=== PATIENT | male | born 1990 | race Two or more races ===

== ENCOUNTER 2025-01-28 11:02 | Emergency (ER) | payer MEDICARE, MEDICAID, SELFPAY ==
[2025-01-28 11:05] VITALS: BMI 37.4
[2025-01-28 11:13] VITALS: BP 172/100; PULSE 80; RESP 16; TEMP 37.2; O2SAT 99
--- NOTE | 2025-01-28 11:30 | XR_ITS ---
Examination: AP lateral soft tissue neck 2 views TECHNIQUE: AP lateral soft tissue neck 2 views Examination time: December 28, 2024 1146 hours INDICATIONS: Throat swelling and pain beginning one month ago. FINDINGS: Normal epiglottis Prevertebral soft tissue measures 19 mm at the C5 level No opaque foreign body IMPRESSION: Mild prevertebral soft tissue prominence, consider CT soft tissue neck post intravenous contrast follow-up
--- NOTE | 2025-01-28 11:36 | PD.EDURI ---
Upper Respiratory Inf. RME/HPI General Chief Complaint: Flu Like Symptoms Stated Complaint: THROAT PAIN, COUGH, N/V, FEVER, RED EYES X1 WEEK Time Seen by Provider: 01/28/25 11:34 Source: patient Arrival date/time: 01/28/25 11:02 34-year-old male with a history of kidney failure on peritoneal dialysis, presents to the emergency room with a chief complaint of throat pain, cough, nausea, vomiting, fever x 1 week Mode of arrival: ambulatory Limitations: no limitations Related Data Allergies Allergy/AdvReac Type Severity Reaction Status Date / Time No Known Allergies Allergy Verified 01/28/25 11:04 Review of Systems Review of Systems Systems Reviewed: All systems reviewed, normal except as documented Constitutional Constitutional: Reports system reviewed and no additional complaints, except as documented, Denies fatigue, Reports fever(s), Denies headache(s) and Denies weakness Eyes Eyes: Reports system reviewed and no additional complaints, except as documented, Denies blurry vision and Denies change in vision ENT Ears, Nose, Mouth, and Throat: Reports system reviewed and no additional complaints, except as documented, Denies otalgia, Denies headache(s), Reports nasal congestion, Reports sore throat, Denies throat swelling and Denies vertigo Cardiovascular Cardiovascular: Reports system reviewed and no additional complaints, except as documented, Denies chest pain, Denies dyspnea and Denies dyspnea on exertion Respiratory Respiratory: Reports system reviewed and no additional complaints, except as documented, Denies chest congestion, Denies cough, Denies dyspnea, Denies dyspnea on exertion and Denies wheezing Gastrointestinal Gastrointestinal: Reports system reviewed and no additional complaints, except as documented, Denies abdominal pain, Denies cramping, Denies nausea and Denies vomiting Genitourinary Genitourinary: Reports system reviewed and no additional complaints, except as documented, Denies dysuria and Denies hematuria Musculoskeletal Musculoskeletal: Reports system reviewed and no additional complaints, except as documented and Denies back pain Integumentary/Breasts Skin/Breast: Reports system reviewed and no additional complaints, except as documented and Denies wounds Neurologic Neurologic: Reports system reviewed and no additional complaints, except as documented, Denies confusion, Denies headache(s), Denies lack of coordination, Denies vertigo and Denies weakness Psychiatric Psychiatric: Reports system reviewed and no additional complaints, except as documented, Denies anxiety, Denies confusion, Denies depression, Denies paranoia, Denies suicidal ideation and Denies tactile hallucinations Endocrine Endocrine: Reports system reviewed and no additional complaints, except as documented and Denies fatigue Hematologic/Lymphatic Hematologic/Lymphatic: Reports system reviewed and no additional complaints, except as documented and Denies lymphadenopathy Allergic/Immunologic Allergic/Immunologic: Reports system reviewed and no additional complaints, except as documented, Denies throat swelling, Denies urticaria and Denies wheezing ED Exam General Limitations: Present no limitations General appearance: Present alert and in no apparent distress Head Head exam: Present atraumatic Eye Eye exam: Present normal appearance, PERRL and EOMI Expanded Eye Exam Pupils: Bilateral: regular, round and reactive Sclera/Conjunctival: left: hemorrhage ENT ENT exam: Present normal exam, normal oropharynx and mucous membranes moist Expanded ENT Exam External ear exam: Present normal external inspection Mouth exam: Present normal external inspection Teeth exam: Present normal inspection Throat exam: Present tonsillar erythema; Absent tonsillar exudate, R peritonsillar mass, L peritonsillar mass or muffled voice Neck Neck exam: Present normal inspection, full ROM and trachea midline Chest Chest inspection: Present normal inspection and symmetric chest wall rise Respiratory Respiratory exam: Present normal lung sounds bilaterally Cardiovascular Cardiovascular exam: Present regular rate, normal rhythm and normal heart sounds Abdominal Exam Abdominal exam: Present soft and normal bowel sounds Extremities Exam Extremities exam: Present normal inspection and full ROM Back Exam Back exam: Present normal inspection and full ROM Neurological Exam Neurological exam: Present alert, oriented X3 and CN II-XII intact Psychiatric Psychiatric exam: Present normal affect and normal mood Skin Skin exam: Present warm, dry, intact and normal color Course Quality Measures none Orders Category Date Time Status Bedside COVID-19 Antigen Test NOW Care 01/28/25 11:31 Active Bedside Influenza A&B Antigen Test NOW Care 01/28/25 11:31 Active XR soft tissue neck Stat Exams 01/28/25 11:30 Ordered Strep A Rapid Stat Lab 01/28/25 11:30 Ordered Vital Signs Vital signs: Vital Signs Temperature 98.9 F 01/28/25 11:13 Pulse Rate 80 01/28/25 11:13 Respiratory Rate 16 01/28/25 11:13 Blood Pressure 172/100 H 01/28/25 11:13 Pulse Oximetry (%) 99 01/28/25 11:13 Oxygen Delivery Method Room Air 01/28/25 11:13 O2 saturation 99% within normal limits Upper Respiratory Infection MDM Narrative MDM Narrative:: 34-year-old male with a history of kidney failure on peritoneal dialysis, presents to the emergency room with a chief complaint of throat pain, cough, nausea, vomiting, fever x 1 week Patient data External records reviewed:: [facility] [place] previous records Clinical information provided by:: patient Social determinants that could affect healthcare access:: none Patient has the following chronic illnesses:: Acute kidney failure How is presenting disease/condition affected by chronic disease/condition?: exacerbated by Evaluation data The following diagnostics were reviewed and interpreted by me:: lab results and radiology exam(s) Lab and/or radiology exams considered but not ordered:: Labs and radiology exams considered and ordered Interpretation Summary: X-ray soft tissue neck- Medications / Prescriptions Medications or Prescriptions considered but not ordered:: No medication given Medication administrations:: No medication given Consultations Consultation(s) initiated? (list below): No Diagnosis Upper Respiratory Differential Diagnosis: upper respiratory infection, sinusitis, viral infection, bronchitis, influenza, pharyngitis and other (Foreign body in neck) Admission Indicated Admission indicated?: not indicated Admission Request Was there a request for admission?: No Disposition Plan Disposition Plan: Discharge Discharge Attestation Discharge Attestation: The patient and all family members were given an opportunity to ask questions and understood the discharge instructions. Discharge instructions specifically effects, indications for sooner follow up or return to the emergency department, and the expected course of current diagnosis. Patient condition: Stable Discharge Plan Prescriptions/Referrals Referrals: Semaj Matthews MD [Primary Care Provider] - In 1 week Patient/Caregiver Discharge Instructions Print Language: Prydeinig
[2025-01-28 12:17] LABS: Strep A Rapid Negative (Negative)
[2025-01-28 13:22] VITALS: BP 169/102; PULSE 74; RESP 18; TEMP 36.7; O2SAT 98
[2025-01-28 13:24] VITALS: BP 169/102; PULSE 74
[2025-01-28] MEDS: cloNIDine HCL 0.1 MG TABLET PO (13:24)
--- NOTE | 2025-01-28 14:31 | XR_ITS ---
Examination: CT soft tissue neck, with intravenous contrast. 2-D coronal reconstructions. 2-D sagittal reconstructions. Date and time of exam :January 28, 20252009 hrs. Left initial difficulty swallowing one month worse the last 24 hours. CTDI: vol (mGy):40.0 DLP: (mGycm):365 Technique: 1.25 mm axial sections of the neck of the obtained. Coronal and sagittal reconstructions have been obtained. Intravenous contrast administered 45 cc has not really 300. Low dose protocols were performed. One or more of the following dose reduction techniques were used; automated exposure control, adjustment of the mA and/or KV according to patient size, use of iterative reconstruction technique. Findings: Symmetrical nasopharynx oropharynx Nonspecific carotid triangle lymphadenopathy The larynx appears normal No thyroid nodules Normal epiglottis Significant left maxillary sinus disease No prevertebral soft tissue prominence Impression: No soft tissue neck abscess No pathologic lymphadenopathy Normal larynx Normal epiglottis Given the patient's presentation, consider standard fluoroscopically guided esophagram follow-up
--- NOTE | 2025-01-28 14:32 | PD.EDRME ---
Rapid Medical Screening Exam COUNT INCLUDES THE [facility] Arrival date/time: 01/28/25 11:02 34-year-old male with a history of kidney failure on peritoneal dialysis, presents to the emergency room with a chief complaint of throat pain, cough, nausea, vomiting, fever x 1 week I have greeted and performed a focused initial assessment of this patient. A comprehensive ED assessment and evaluation of the patient, analysis of all test results, and completion of the medical decision making process will be conducted by additional ED providers. Chief Complaint: Flu Like Symptoms Time Seen by Provider: 01/28/25 11:34 Vital signs: Vital Signs Temperature 98.9 F 01/28/25 11:13 Pulse Rate 80 01/28/25 11:13 Respiratory Rate 16 01/28/25 11:13 Blood Pressure 172/100 H 01/28/25 11:13 Pulse Oximetry (%) 99 01/28/25 11:13 Oxygen Delivery Method Room Air 01/28/25 11:13
[2025-01-28 15:02] LABS: Basophils # (Auto) 0.1 Thou/mm3 (0.0-0.2); Basophils % (Auto) 1 % (0-2.5); Eosinophils # (Auto) 0.2 Thou/mm3 (0.0-0.5); Eosinophils % (Auto) 3 % (0-10); Hematocrit 30.6 % (41.0-53.0); Immature Granulocytes % (Auto) 0 % (0-0); Immature Granulocytes Auto 0.03 Thou/mm3 (0.00-0.00); Lymphocytes # (Auto) 0.4 Thou/mm3 (1.0-4.8); Lymphocytes % (Auto) 5 % (10-50); Mean Corpuscular HGB Conc 35.9 g/dl (31.0-37.0); Mean Corpuscular Hemoglobin 28.2 pg (25.0-35.0); Mean Corpuscular Volume 79 fL (80-100); Monocytes # (Auto) 0.9 Thou/mm3 (0.0-0.8); Monocytes % (Auto) 12 % (0-12); Neutrophils # (Auto) 5.6 Thou/mm3 (1.8-7.7); Neutrophils % (Auto) 77 % (37-80); Nucleated Red Blood Cell % 0 /100 WBC (0); Platelet Count 147 Thou/mm3 (140-440); RDW Standard Deviation 37.6 fL (35.1-43.9); White Blood Count 7.3 Thou/mm3 (3.8-10.6)
[2025-01-28 15:33] LABS: Alanine Aminotransferase 21 U/L (10-49); Albumin, Serum 3.4 gm/dL (3.5-5.0); Albumin/Globulin Ratio 1.1 (1.2-2.2); Alkaline Phosphatase 165 U/L (46-116); Anion Gap 17 (7-16); Aspartate Amino Transferase < 10 U/L (0-34); BUN/Creatinine Ratio 5 Ratio (12-20); Bilirubin,Total < 0.2 mg/dL (0.3-1.2); Calcium (Corrected) 8.5 mg/dL (8.5-10.1); Chloride 88 mMol/L (98-107); Estimated Creatinine Clearance 4.8 mL/min (>60); Glucose 92 mg/dL (74-106); Osmolality,Calculated 286 (275-295); Potassium 4.4 mMol/L (3.4-5.1); Sodium 122 mMol/L (136-145); Total Protein 6.4 gm/dL (5.7-8.2); eGFR 2 See Note
[2025-01-28 16:46] LABS: Blood Urea Nitrogen 125 mg/dL (9-23); Creatinine (Component) 25.6 mg/dL (0.6-1.3)
--- NOTE | 2025-01-28 18:41 | PD.EDADULT ---
ED General RME/HPI General Chief complaint: Flu Like Symptoms Stated complaint: THROAT PAIN, COUGH, N/V, FEVER, RED EYES X1 WEEK Time Seen by Provider: 01/28/25 11:34 Arrival date/time: 01/28/25 11:02 CC: Lump in throat , difficulty speaking difficulty swallowing HPI ongoing for 1 month but worse in the last 24 hours. states the patient has not anything to eat today secondary difficulty swallowing but he is managing his own saliva. Patient currently denies shortness of breath or difficulty breathing. Has spoken to his PCP about it who is considering outpatient referral for a specialist . RME / HPI RME / HPI narrative: 01/28/25 11:02 34-year-old male with a history of kidney failure on peritoneal dialysis, presents to the emergency room with a chief complaint of throat pain, cough, nausea, vomiting, fever x 1 week I have greeted and performed a focused initial assessment of this patient. A comprehensive ED assessment and evaluation of the patient, analysis of all test results, and completion of the medical decision making process will be conducted by additional ED providers. Related Data Previous Rx's ?Medication ?Instructions ?Recorded guaifenesin 200 mg/5 mL oral liquid 200 mg (5 mL) PO Q4H PRN cough 01/28/25 #118 mL prednisone 20 mg tablet See Taper PO BID 3 days #6 tabs 01/28/25 Allergies Allergy/AdvReac Type Severity Reaction Status Date / Time No Known Allergies Allergy Verified 01/28/25 11:04 Review of Systems Review of Systems Narrative Review of Systems: GEN: No fever, no chills, no weight loss EYES: No discharge, no visual changes, no pain HEENT: No ear pain, no congestion, + sore throat PULM: No shortness of breath, no cough, no congestion CV: No chest pain, no dyspnea on exertion, no palpitations GI: No nausea, no vomiting, no diarrhea, no pain, no constipation : No frequency, no urgency, no dysuria MUSC/SKEL: No joint pain, no back pain SKIN: No rash PSYCH: No hallucinations, no depression HEME/LYMPH: No easy bleeding or bruising tendencies NEURO: No weakness, no headache Past Medical History Past Medical History CARDIAC: Negative Cardiac Disorders RESPIRATORY: Negative Asthma ENDOCRINE: Negative Diabetes Mellitus Type 2 HEMATOLOGIC: Negative Sickle Cell Disease Social History SMOKING STATUS: Never smoker ED Exam Narrative Physical exam: [General: Obese not in any acute distress Head normocephalic HEENT: Within acceptable limits Neck is supple nontender, no stridor with auscultation Chest equal chest rise nontender to palpation Respiratory: Clear to auscultation no wheezes crackles or rubs dry nonproductive cough CV: Rate rhythm is regular no murmurs rubs or clicks Abdomen is distended secondary to body habitus soft nontender no masses positive bowel sounds all 4 quadrants Back: No CVA tenderness no spinous process tenderness from cervical spine thoracic and lumbar spine Skin: Intact no petechiae rash induration ulceration or crepitus Extremities: Moving all extremity against resistance cap refill less than 2 seconds neurosensory intact Neuro: Awake alert oriented x3 Glascow coma 15 no focal deficits] Course Quality Measures none Orders Category Date Time Status Bedside COVID-19 Antigen Test NOW Care 01/28/25 11:31 Active Bedside Influenza A&B Antigen Test NOW Care 01/28/25 11:[address] Screening NOW Care 01/28/25 14:[address] soft tissue neck w con Stat Exams 01/28/25 14:31 Completed XR soft tissue neck Stat Exams 01/28/25 11:30 Completed CBC Stat Lab 01/28/25 14:54 Completed CMP [Comprehensive Metabolic Panel] Stat Lab 01/28/25 14:54 Completed Strep A Rapid Stat Lab 01/28/25 11:48 Completed cloNIDine HCL [Catapres] Med 01/28/25 11:39 Discontinued 0.1 mg PO X1 ONE Vital Signs Vital signs: Vital Signs Temperature 98.9 F 01/28/25 11:13 Pulse Rate 80 01/28/25 11:13 Respiratory Rate 16 01/28/25 11:13 Blood Pressure 172/100 H 01/28/25 11:13 Pulse Oximetry (%) 99 01/28/25 11:13 Oxygen Delivery Method Room Air 01/28/25 11:13 [facility] Patient data External records reviewed:: [facility] previous records Clinical information provided by:: patient and spouse Social determinants that could affect healthcare access:: none Patient has the following chronic illnesses:: Obesity How is presenting disease/condition affected by chronic disease/condition?: uneffected by Evaluation data The following diagnostics were reviewed and interpreted by me:: lab results and radiology exam(s) Lab and/or radiology exams considered but not ordered:: CBC shows no leukocytosis H&H of 11 and 36 respectively no thrombocytopenia CMP shows a sodium 122 chloride of 88 CO2 of 17 gap of 17 BUN of 125 creatinine of 25.6 calcium of 8 no significant transaminitis or T. bili elevation. Strep is negative Soft tissue neck shows a prevertebral soft tissue prominence CT soft tissue neck with IV contrast shows no acute abscess or mass. Interpretation Summary: This time a discharge the patient home on steroids and cough medicine she is to follow-up with her PCP for referral to ENT I do not feel that this is any rigid mechanical issue rather an inflammatory problem. Patient is advised to take the medications of the worsening of symptoms to return the emergency room for further evaluation. Medications Medications considered but not ordered:: None Medication administrations:: Medication Administration History Discontinued Medications Clonidine (Clonidine Hcl 0.1 Mg Tablet) 0.1 mg PO X1 ONE Stop: 01/28/25 11:40 Last Admin: 01/28/25 13:24 Dose: 0.1 mg Documented By: ER None Consultations Consultation(s) initiated? (list below): No Diagnosis Differential Diagnosis ED Complaint MDM: Neck abscess neck mass viral syndrome Most likely diagnosis given after review of the tests above:: Viral syndrome difficulty swallowing Admission Indicated Admission indicated?: not indicated Explain why admission is indicated or not indicated:: Stable for discharge Admission Request Was there a request for admission?: No Disposition Plan Disposition Plan: Discharge Discharge Attestation Discharge Attestation: The patient and all family members were given an opportunity to ask questions and understood the discharge instructions. Discharge instructions specifically effects, indications for sooner follow up or return to the emergency department, and the expected course of current diagnosis. Patient condition: Stable Medical Decision Making Differential Diagnosis Differential Diagnosis: Neck abscess neck mass viral syndrome Lab Data 01/28/25 14:54 01/28/25 14:54 Labs: Lab Results 01/28/25 01/28/25 Range/Units 11:48 14:54 WBC 7.3 (3.8-10.6) Thou/mm3 RBC 3.90 L (4.50-5.90) Miln/mm3 Hgb 11.0 L (13.5-16.0) g/dL Hct 30.6 L (41.0-53.0) % MCV 79 L (80-100) fL MCH 28.2 (25.0-35.0) pg MCHC 35.9 (31.0-37.0) g/dl RDW Std Deviation 37.6 (35.1-43.9) fL Plt Count 147 (140-440) Thou/mm3 Neut % (Auto) 77 (37-80) % Lymph % (Auto) 5 L (10-50) % [place] % (Auto) 12 (0-12) % Eos % (Auto) 3 (0-10) % Baso % (Auto) 1 (0-2.5) % Neut # (Auto) 5.6 (1.8-7.7) Thou/mm3 Lymph # (Auto) 0.4 L (1.0-4.8) Thou/mm3 [place] # (Auto) 0.9 H (0.0-0.8) Thou/mm3 Eos # (Auto) 0.2 (0.0-0.5) Thou/mm3 Baso # (Auto) 0.1 (0.0-0.2) Thou/mm3 Immature Gran # (Auto) 0.03 H (0.00-0.00) Thou/mm3 Absolute Nucleated RBC 0.00 (0.00-0.00) Thou/mm3 Immature Gran % 0 (0-0) % Nucleated RBC % 0 (0) /100 WBC Sodium 122 L (136-145) mMol/L Potassium 4.4 (3.4-5.1) mMol/L Chloride 88 L (98-107) mMol/L Carbon Dioxide 17.0 L (20.0-31.0) mMol/L Anion Gap 17 H (7-16) BUN 125 H* (9-23) mg/dL Creatinine 25.6 H* (0.6-1.3) mg/dL Estim Creat Clear Calc 4.8 L (>60) mL/min eGFR 2 L* (60 - ) See Note BUN/Creatinine Ratio 5 L (12-20) Ratio Glucose 92 (74-106) mg/dL Calculated Osmolality 286 (275-295) Calcium 8.0 L (8.3-10.6) mg/dL Corrected Calcium 8.5 (8.5-10.1) mg/dL Total Bilirubin < 0.2 L (0.3-1.2) mg/dL AST < 10 (0-34) U/L ALT 21 (10-49) U/L Alkaline Phosphatase 165 H (46-116) U/L Total Protein 6.4 (5.7-8.2) gm/dL Albumin 3.4 L (3.5-5.0) gm/dL Globulin 3.0 (2.3-3.5) gm/dL Albumin/Globulin Ratio 1.1 L (1.2-2.2) Group A Strep Rapid Negative (Negative) Discharge Plan Plan Patient Disposition: HOME (Self Care) Patient condition on transfer: Stable Prescriptions/Referrals Prescriptions/Med Rec: New prednisone 20 mg tablet See Taper PO BID 3 Days Qty: 6 0RF Taper: Prednisone Taper 20 mg DAILY for 2 Days and 0 Hour 10 mg DAILY for 2 Days and 0 Hour 5 mg DAILY for 7 Days and 0 Hour guaifenesin 200 mg/5 mL liquid 200 mg PO Q4H PRN (Reason: cough) Qty: 118 0RF Referrals: Semaj Matthews MD [Primary Care Provider] - In 1 week Problem List Clinical Impression: Cough, Difficulty in swallowing Patient/Caregiver Discharge Instructions Education Materials: ED Cough Chronic Uncertain Cause Adult, ED Soft Diet Additional Instructions: Take the medications as prescribed if there is worsening of symptoms return the emergency room otherwise follow-up with your primary care provider for referral to ENT. Make sure you dialyzed tonight Print Language: Vincentian Stand Alone Forms: Cinthia Award Info., Patient Portal Info Letter, Work/School Release PA/PRESS SECRETARY Supervising Physician PA/PRESS SECRETARY Supervising Physician: Constantine Schumacher ENP
== END 2025-01-28 21:28 | disposition home or self-care (01) ==
PROVIDERS: Nurse Practitioner Family; Emergency Provider Emergency Medicine; PCP Family Medicine
DX: R13.10 Dysphagia, unspecified (principal); R05.9 Cough, unspecified
CPT/HCPCS: 36415; 70360; 70491; 80053; 85025; 87651; 99285; A4649; Q9967; A9270

== ENCOUNTER 2025-02-05 21:14 | Emergency (ER) | payer MEDICARE, MEDICAID, SELFPAY ==
[2025-02-05 21:15] VITALS: BMI 37.2
[2025-02-05 21:30] VITALS: BP 149/87; PULSE 94; RESP 19; TEMP 38; O2SAT 96
--- NOTE | 2025-02-05 21:32 | PD.EDSOB ---
ED SOB =RME/HPI General Chief Complaint: Shortness of Breath/Dyspnea Stated Complaint: SHORTNESS OF BREATH, DIFFULTY SWALLOWING Time Seen by Provider: 02/05/25 21:27 Arrival date/time: 02/05/25 21:14 RME / HPI RME / HPI Narrative: This section includes all my notes and documentations, including HPI, PE, and ED course. Michael Mir MD HPI: 34yo male presents to the ED with about a month history of worsening cough, productive cough, purulent sputum, and dyspnea. Waxing and waning but severely worse in the past few days. With subjective fever and chills. No other complaints. ROS: All negative except as documented in HPI. Physical Exam: General: Alert and oriented. Is actively coughing. Eyes: Conjunctivae and lids clear. ENT: No nasal congestion. Neck: Supple. Heart: RRR. Lungs: No respiratory distress. Moderately decreased air movement with bilateral rhonchi. Abdomen: Soft and nontender. Legs: No clubbing, cyanosis, edema. Skin: Warm and dry. Neuro: Alert and oriented X 3. I reviewed all diagnostic test results. My interpretation of the chest x-ray is infiltrates. COVID/influenza negative. Cocci serology pending. At this point, diagnoses include pneumonia. Treatment here included Tylenol with Codeine, Duoneb, Azithromycin, Benadryl, Fluconazole, Ibuprofen, and Prednisone. Significant improvement noted. Prescribed Zithromax and cefdinir and Diflucan and recommended close outpatient follow-up. Based on my best medical judgment, made decision no further evaluation or treatment indicated at this time. Patient understands and agrees to the discharge instructions customized and printed, see below. Discharge instructions from Dr. Mir: --After evaluation, you have pneumonia. There are many types of germs that can cause pneumonia. So you are being treated with 3 medications that can kill different germs. --No physical exertion for 3 days to help rest the lungs. ?No smoking or exposure to smoking or pets or dust or cold or humidity. --Zithromax and cefdinir and Diflucan (as prescribed) to kill the germs causing the pneumonia. --Prednisone to help decrease the swelling in the airways. --Albuterol 2 puffs (with the spacer) every 4-6 hours for 3 days to help keep the airways open. Then as needed for cough or shortness of breath. --See a private doctor on for recheck and further care. Ask to check the results for valley fever. Ask if you need to continue taking Diflucan. Ask for help until you are completely better. --Seek immediate medical care with worsening or with any concerns. Michael Mir MD Related Data Previous Rx's ?Medication ?Instructions ?Recorded guaifenesin 200 mg/5 mL oral liquid 200 mg (5 mL) PO Q4H PRN cough 01/28/25 #118 mL albuterol sulfate 90 mcg/actuation 2 puff inhalation Q6H PRN 02/05/25 aerosol inhaler shortness of breath or wheezing #8.5 grams azithromycin 500 mg tablet 500 mg PO QDAY 3 days #3 tabs 02/05/25 (Zithromax TRI-JULITA) cefdinir 300 mg capsule 300 mg PO BID #14 caps 02/05/25 fluconazole 200 mg tablet 400 mg (2 x 200 mg) PO QDAY #30 02/05/25 (Diflucan) tabs prednisone 50 mg tablet 50 mg PO BID 3 days #6 tabs 02/05/25 Allergies Allergy/AdvReac Type Severity Reaction Status Date / Time No Known Allergies Allergy Verified 01/28/25 11:04 Review of Systems Review of Systems Systems Reviewed: All systems reviewed, normal except as documented Past Medical History Past Medical History CARDIAC: Negative Cardiac Disorders RESPIRATORY: Negative Asthma ENDOCRINE: Negative Diabetes Mellitus Type 2 HEMATOLOGIC: Negative Sickle Cell Disease Social History SMOKING STATUS: Never smoker ED Exam Narrative Physical exam: As noted in HPI. Course Quality Measures none Orders Category Date Time Status Bedside COVID-19 Antigen Test NOW Care 02/05/25 21:37 Completed Bedside Influenza A&B Antigen Test NOW Care 02/05/25 21:37 Completed Referral Respiratory Therapy Stat Cons 02/05/25 22:46 Active XR chest 1V portable Stat Exams 02/05/25 21:36 Completed Cocci Serology IgM with reflex to IgG [Cocci Serology, Lab 02/05/25 23:24 Received Unk History] Stat ACETAMINOPHEN w/COD 300-30 [Tylenol w/Cod #3] Med 02/05/25 21:36 Discontinued 2 tab PO X1 ONE Albuterol/Ipratr Rt Ita [Duoneb Rt Ita] Med 02/05/25 21:35 Discontinued 3 ml INH X1 ONE Azithromycin Po [Zithromax PO] Med 02/05/25 22:31 Discontinued 500 mg PO X1 ONE DiphenhydrAMINE [Benadryl] Med 02/05/25 21:35 Discontinued 25 mg PO X1 ONE Fluconazole [Diflucan] Med 02/05/25 22:31 Discontinued 400 mg PO X1 ONE Fluconazole [Diflucan] Med 02/05/25 22:57 Discontinued 450 mg PO X1 ONE Fluconazole [Diflucan] Med 02/05/25 23:01 Discontinued 450 mg PO X1 ONE Ibuprofen Tab [Motrin Tab] Med 02/05/25 21:37 Discontinued 800 mg PO X1 ONE predniSONE Med 02/05/25 21:35 Discontinued 80 mg PO X1 ONE Vital Signs Vital signs: Vital Signs Temperature 100.4 F 02/05/25 21:30 Pulse Rate 94 02/05/25 21:30 Respiratory Rate 19 02/05/25 21:30 Blood Pressure 149/87 H 02/05/25 21:30 Pulse Oximetry (%) 96 02/05/25 21:30 Oxygen Delivery Method Room Air 02/05/25 21:30 Shortness of Breath / Dyspnea MDM Narrative MDM Narrative:: Scribe Attestation: 02/05/25 - Olga Lidia Vincent am scribing for and in the presence of Dr. Mir. Patient data External records reviewed:: [facility] previous records (Per chart review, patient was seen here on 01/28/25 for a cough.) Clinical information provided by:: patient Social determinants that could affect healthcare access:: none Patient has the following chronic illnesses:: none How is presenting disease/condition affected by chronic disease/condition?: no chronic disease Evaluation data The following diagnostics were reviewed and interpreted by me:: lab results, radiology exam(s) and EKG tracing(s) Lab and/or radiology exams considered but not ordered:: none Interpretation Summary: Pneumonia Medications / Prescriptions Medications or Prescriptions considered but not ordered:: none Medication administrations:: Medication Administration History Discontinued Medications Acetaminophen/Codeine Phosphate (Acetaminophen W/Cod 300-30 Tablet) 2 tab PO X1 ONE Stop: 02/05/25 21:37 Last Admin: 02/05/25 22:14 Dose: 2 tab Documented By: OA Albuterol/Ipratropium (Albuterol/Ipratropium (Duoneb) Rt Ita 3 Ml Nebu) 3 ml INH X1 ONE Stop: 02/05/25 21:36 Last Admin: 02/05/25 22:38 Dose: 3 ml Documented By: MARIA A Azithromycin (Azithromycin 250 Mg Tablet) 500 mg PO X1 ONE Stop: 02/05/25 22:32 Last Admin: 02/05/25 23:13 Dose: 500 mg Documented By: ROBEL Diphenhydramine HCl (Diphenhydramine 25 Mg Capsule) 25 mg PO X1 ONE Stop: 02/05/25 21:36 Last Admin: 02/05/25 22:14 Dose: 25 mg Documented By: OA Fluconazole (Fluconazole 100 Mg Tablet) 400 mg PO X1 ONE Stop: 02/05/25 22:32 Last Admin: 02/05/25 23:00 Dose: Not Given Documented By: OA Non-Admin Reason: Discontinued Fluconazole (Fluconazole 100 Mg Tablet) 450 mg PO X1 ONE Stop: 02/05/25 22:58 Last Admin: 02/05/25 23:02 Dose: Not Given Documented By: ROBEL Non-Admin Reason: Discontinued Fluconazole (Fluconazole 150 Mg Tablet) 450 mg PO X1 ONE Stop: 02/05/25 23:02 Last Admin: 02/05/25 23:13 Dose: 450 mg Documented By: ROBEL Ibuprofen (Ibuprofen Tab 400 Mg Tablet) 800 mg PO X1 ONE Stop: 02/05/25 21:38 Last Admin: 02/05/25 22:14 Dose: 800 mg Documented By: OA Prednisone (Prednisone 20 Mg Tablet) 80 mg PO X1 ONE Stop: 02/05/25 21:36 Last Admin: 02/05/25 22:15 Dose: 80 mg Documented By: ROBEL Tylenol with Codeine, Duoneb, Azithromycin, Benadryl, Fluconazole, Ibuprofen, Prednisone Consultations Consultation(s) initiated? (list below): No Diagnosis Shortness of Breath Differential Diagnosis: acute exacerbation of chronic obstructive airways disease, congestive heart failure, community acquired pneumonia, asthma with exacerbation, pulmonary embolism and other (Influenza, COVID, valley fever) Most likely diagnosis given after review of the tests above:: Pneumonia Admission Indicated Admission indicated?: not indicated Explain why admission is indicated or not indicated:: With significant improvement, there was no indication for admission. Admission Request Was there a request for admission?: No Disposition Plan Disposition Plan: Discharge Discharge Attestation Discharge Attestation: The patient and all family members were given an opportunity to ask questions and understood the discharge instructions. Discharge instructions specifically effects, indications for sooner follow up or return to the emergency department, and the expected course of current diagnosis. Patient condition: Stable Discharge Plan Plan Patient Disposition: HOME (Self Care) Prescriptions/Referrals Prescriptions/Med Rec: New prednisone 50 mg tablet 50 mg PO BID 3 Days Qty: 6 0RF albuterol sulfate 90 mcg/actuation HFA aerosol inhaler 2 puff inhalation Q6H PRN (Reason: shortness of breath or wheezing) Qty: 8.5 0RF cefdinir 300 mg capsule 300 mg PO BID Qty: 14 0RF azithromycin [Zithromax TRI-JULITA] 500 mg tablet 500 mg PO QDAY 3 Days Qty: 3 0RF fluconazole [Diflucan] 200 mg tablet 400 mg PO QDAY Qty: 30 1RF No Action guaifenesin 200 mg/5 mL liquid 200 mg PO Q4H PRN (Reason: cough) Qty: 118 0RF Referrals: No Primary/Family,Physician [Primary Care Provider] - In 1 week Problem List Clinical Impression: Pneumonia Patient/Caregiver Discharge Instructions Discharge Activity: activity as tolerated Education Materials: ED Pneumonia (Adult) Additional Instructions: Discharge instructions from Dr. Mir: --After evaluation, you have pneumonia. There are many types of germs that can cause pneumonia. So you are being treated with 3 medications that can kill different germs. --No physical exertion for 3 days to help rest the lungs. ?No smoking or exposure to smoking or pets or dust or cold or humidity. --Zithromax and cefdinir and Diflucan (as prescribed) to kill the germs causing the pneumonia. --Prednisone to help decrease the swelling in the airways. --Albuterol 2 puffs (with the spacer) every 4-6 hours for 3 days to help keep the airways open. Then as needed for cough or shortness of breath. --See a private doctor on for recheck and further care. Ask to check the results for valley fever. Ask if you need to continue taking Diflucan. Ask for help until you are completely better. --Seek immediate medical care with worsening or with any concerns. Instrucciones de elliot del Dr. Mir: --Despu?s de la evaluaci?n, usted presenta neumon?a. Hay muchos tipos de g?rmenes que pueden causar neumon?a. Por lo tanto, est? recibiendo tratamiento con 3 medicamentos que pueden eliminar diferentes g?rmenes. --No realice esfuerzo f?sico jimmy 3 d?as para ayudar a que los pulmones descansen. --No fume ni se exponga al humo del tabaco, a las mascotas, al polvo, al fr?o ni a la humedad. --Zithromax, cefdinir y Diflucan (seg?n lo prescrito) para eliminar los g?rmenes que causan la neumon?a. --Prednisona para ayudar a disminuir la inflamaci?n de las v?as respiratorias. --Albuterol: 2 inhalaciones (con espaciador) cada 4-6 horas jimmy 3 d?as para ayudar a mantener las v?as respiratorias abiertas. Despu?s, seg?n sea necesario para la tos o la dificultad para respirar. --Consulte con un m?dico particular el para anuel nueva revisi?n y cuidados adicionales. Solicite que le revisen los resultados de la fiebre shankar. Pregunte si necesita continuar tomando Diflucan. Solicite ayuda hasta que se recupere por completo. --Busque atenci?n m?dica inmediata si empeora o tiene alguna inquietud. Print Language: Pashto Stand Alone Forms: Cinthia Award Info., Patient Portal Info Letter
--- NOTE | 2025-02-05 21:36 | XR_ITS ---
Examination: PA chest single view Technique: Upright PA chest single view Exam date and time: February 05, 2025 1052 hrs. Indications: Shortness of breath this month with cough Findings: Dense consolidation versus pulmonary mass in the right Prominent right hilum Normal heart size Left lung clear Impression: 5.5 cm dense consolidation versus pulmonary mass in the right midlung with prominent right hilum Highest on the differential list is infectious processes including tuberculosis,, coccidioidomycosis, follow-up chest imaging is needed to document clearing
[2025-02-05] MEDS: DiphenhydrAMINE 25 MG CAPSULE PO (22:14)
[2025-02-05] MEDS: IBUPROFEN TAB 400 MG TABLET 800 MG PO (22:14)
[2025-02-05] MEDS: ACETAMINOPHEN w/COD 300-30 TABLET 2 TAB PO (22:14)
[2025-02-05] MEDS: predniSONE 20 MG TABLET 80 MG PO (22:15)
[2025-02-05] MEDS: ALBUTEROL/IPRATROPIUM (Duoneb) RT SOL 3 ML NEBU INH (22:38)
[2025-02-05 22:39] VITALS: PULSE 82; RESP 21; O2SAT 99
[2025-02-05] MEDS: FLUCONAZOLE 150 MG TABLET 450 MG PO (23:13)
[2025-02-05] MEDS: AZITHROMYCIN 250 MG TABLET 500 MG PO (23:13)
[2025-02-05 23:42] VITALS: BP 142/68; PULSE 70; RESP 20; TEMP 37; O2SAT 96
[2025-02-06 12:50] LABS: Cocci Serology, IgM Negative (Negative)
[2025-02-07 11:37] LABS: Cocci Serology, IgG Negative (Negative)
== END 2025-02-05 23:44 | disposition home or self-care (01) ==
PROVIDERS: Emergency Provider Emergency Medicine
DX: J18.9 Pneumonia, unspecified organism (principal)
CPT/HCPCS: 36415; 71045; 86331; 86635; 87400; 87811; 94640; 99283; A9270; J7512

== ENCOUNTER 2025-02-12 08:51 | Inpatient (IN) | payer MEDICARE, MEDICAID, SELFPAY ==
[2025-02-12] VITALS (10 sets, daily range): BP systolic 126–165; BP diastolic 71–85; PULSE 78–91; RESP 16–22; TEMP 36.5–37.2; O2SAT 92–97; BMI 38.0
--- NOTE | 2025-02-12 09:14 | XR_ITS ---
Examination: CT abdomen and pelvis without contrast. Coronal 3-D reconstructions. Sagittal 2-D reconstructions. Date and time of exam:February 12, 2025 1107 hours INDICATIONS: Left-sided flank pain and vomiting blood today CTDI: vol (mGy): 13.2 DLP: (mGycm): 6 Technique: Axial images of the abdomen have been obtained, 3 mm slice thickness Intravenous contrast material has not been administered. Low dose protocols were performed. One or more of the following dose reduction techniques were used; automated exposure control, adjustment of the mA and/or KV according to patient size, use of iterative reconstruction technique. Findings: Partial visualization 5 cm thick-walled cavitary lesion in the right perihilar region Calcified granuloma left lower lobe Mucosal fold thickening diffusely in the stomach, gastritis pattern Liver mildly irregular in contour Mild fluid subcapsular to the liver No definite gallstones Spleen not enlarged No pancreatic or adrenal mass Atrophic kidneys No bowel obstruction Mild ascites Tube in the pelvis consistent with peritoneal dialysis catheter Contracted urinary bladder No prostatomegaly IMPRESSION: Recommend CT scan chest without contrast to further assess 5 mm thick-walled cavitary lesion in the right lung Gastritis pattern Suspect primary hepatocellular disease Peritoneal dialysis catheter with free fluid in the abdomen No bowel obstruction
--- NOTE | 2025-02-12 09:15 | EDRME_ITS ---
Rapid Medical Screening Exam [facility] Arrival date/time: 02/12/25 08:51 34-year-old male with a history of hemodialysis chronic kidney disease presents to the emergency room with a chief complaint of bilateral flank pain and difficulty swallowing x 2 days. Patient was seen here 2 weeks ago for his difficulty swallowing. I have greeted and performed a focused initial assessment of this patient. A comprehensive ED assessment and evaluation of the patient, analysis of all test results, and completion of the medical decision making process will be conducted by additional ED providers. Chief Complaint: Back Pain/Injury Vital signs: Vital Signs Temperature 98.1 F 02/12/25 09:11 Pulse Rate 88 02/12/25 09:11 Respiratory Rate 20 02/12/25 09:11 Blood Pressure 133/72 H 02/12/25 09:11 Pulse Oximetry (%) 97 02/12/25 09:11 Oxygen Delivery Method Room Air 02/12/25 09:11 Vital signs reviewed by provider: Yes
[2025-02-12 10:07] LABS: Basophils % (Auto) 0 % (0-2.5); Eosinophils # (Auto) 0.1 Thou/mm3 (0.0-0.5); Eosinophils % (Auto) 1 % (0-10); Hemoglobin 10.4 g/dL (13.5-16.0); Immature Granulocytes % (Auto) 1 % (0-0); Immature Granulocytes Auto 0.27 Thou/mm3 (0.00-0.00); Lymphocytes # (Auto) 0.3 Thou/mm3 (1.0-4.8); Lymphocytes % (Auto) 2 % (10-50); Mean Corpuscular HGB Conc 37.1 g/dl (31.0-37.0); Mean Corpuscular Volume 75 fL (80-100); Monocytes # (Auto) 1.6 Thou/mm3 (0.0-0.8); Monocytes % (Auto) 8 % (0-12); Neutrophils # (Auto) 17.7 Thou/mm3 (1.8-7.7); Neutrophils % (Auto) 88 % (37-80); Nucleated Red Blood Cell % 0 /100 WBC (0); Platelet Count 201 Thou/mm3 (140-440); RDW Standard Deviation 35.8 fL (35.1-43.9); Red Blood Count 3.72 Miln/mm3 (4.50-5.90); White Blood Count 20.1 Thou/mm3 (3.8-10.6)
[2025-02-12 10:37] LABS: Alanine Aminotransferase 15 U/L (10-49); Albumin, Serum 3.2 gm/dL (3.5-5.0); Albumin/Globulin Ratio 1.2 (1.2-2.2); Alkaline Phosphatase 143 U/L (46-116); Anion Gap 15 (7-16); Aspartate Amino Transferase 11 U/L (0-34); BUN/Creatinine Ratio 6 Ratio (12-20); Bilirubin,Total 0.2 mg/dL (0.3-1.2); Calcium 7.1 mg/dL (8.3-10.6); Calcium (Corrected) 7.7 mg/dL (8.5-10.1); Chloride 86 mMol/L (98-107); Estimated Creatinine Clearance 5.1 mL/min (>60); Globulin 2.7 gm/dL (2.3-3.5); Glucose 97 mg/dL (74-106); Lipase 125 U/L (12-53); Osmolality,Calculated 285 (275-295); Potassium 3.9 mMol/L (3.4-5.1); Total Protein 5.9 gm/dL (5.7-8.2); eGFR 2 See Note
[2025-02-12 10:44] LABS: Carbon Dioxide 14.7 mMol/L (20.0-31.0); Sodium 116 mMol/L (136-145)
[2025-02-12 10:45] LABS: Blood Urea Nitrogen 154 mg/dL (9-23); Creatinine (Component) 24.6 mg/dL (0.6-1.3)
[2025-02-12 11:38] LABS: Collection Type, Urine Clean Catch
--- NOTE | 2025-02-12 11:57 | PD.EDADULT ---
ED General RME/HPI General Chief complaint: Back Pain/Injury Stated complaint: THROWING UP BLOOD, LOW BACK PAIN Time Seen by Provider: 02/12/25 11:45 Arrival date/time: 02/12/25 08:51 CC: Low back pain HPI ongoing for the past 2 days. Patient is a peritoneal dialysis patient seen by Dr. Zamora. He is awake alert oriented in moderate discomfort. Denies chest pain shortness of breath or difficulty breathing. RME / HPI RME / HPI narrative: 02/12/25 08:51 34-year-old male with a history of hemodialysis chronic kidney disease presents to the emergency room with a chief complaint of bilateral flank pain and difficulty swallowing x 2 days. Patient was seen here 2 weeks ago for his difficulty swallowing. I have greeted and performed a focused initial assessment of this patient. A comprehensive ED assessment and evaluation of the patient, analysis of all test results, and completion of the medical decision making process will be conducted by additional ED providers. Related Data Previous Rx's ?Medication ?Instructions ?Recorded guaifenesin 200 mg/5 mL oral liquid 200 mg (5 mL) PO Q4H PRN cough 01/28/25 #118 mL albuterol sulfate 90 mcg/actuation 2 puff inhalation Q6H PRN 02/05/25 aerosol inhaler shortness of breath or wheezing #8.5 grams cefdinir 300 mg capsule 300 mg PO BID #14 caps 02/05/25 fluconazole 200 mg tablet 400 mg (2 x 200 mg) PO QDAY #30 02/05/25 (Diflucan) tabs Allergies Allergy/AdvReac Type Severity Reaction Status Date / Time No Known Allergies Allergy Verified 01/28/25 11:04 Review of Systems Review of Systems Narrative Review of Systems: GEN: No fever, no chills, no weight loss EYES: No discharge, no visual changes, no pain HEENT: No ear pain, no congestion, no sore throat PULM: No shortness of breath, no cough, no congestion CV: No chest pain, no dyspnea on exertion, no palpitations GI: No nausea, no vomiting, no diarrhea, no pain, no constipation : No frequency, no urgency, no dysuria MUSC/SKEL: No joint pain, + back pain SKIN: No rash PSYCH: No hallucinations, no depression HEME/LYMPH: No easy bleeding or bruising tendencies NEURO: No weakness, no headache Past Medical History Past Medical History CARDIAC: Negative Cardiac Disorders or Congestive Heart Failure RESPIRATORY: Negative Chronic Obstructive Pulmonary Disease (COPD) or Asthma ENDOCRINE: Negative Diabetes Mellitus Type 1 or Diabetes Mellitus Type 2 HEMATOLOGIC: Negative Sickle Cell Disease Social History SMOKING STATUS: Never smoker ED Exam Narrative Physical exam: [General: Obese, moderate discomfort not in any acute distress Head normocephalic HEENT: Within acceptable limits Neck is supple nontender Chest equal chest rise nontender to palpation Respiratory: Clear to auscultation no wheezes crackles or rubs CV: Rate rhythm is regular no murmurs rubs or clicks Abdomen is distended secondary to body habitus soft nontender no masses positive bowel sounds all 4 quadrants Back: Low lumbar tenderness over the spinous processes. No paraspinal tenderness no thoracic tenderness. No sacral tenderness with palpation. Skin is normal, no erythema edema. Tenderness is evident with very light palpation. Skin: Intact no petechiae rash induration ulceration or crepitus Extremities: Moving all extremity against resistance cap refill less than 2 seconds neurosensory intact Neuro: Awake alert oriented x3 Glascow coma 15 no focal deficits] Course Course Course Narrative: This patient has hyponatremia with a cavitating lesion on CT. 20,000 white count with no fever and concern, patient's case discussed with Dr. Galaviz who agrees to accept the patient for admission under Dr. Vazquez attending Quality Measures none Orders Category Date Time Status Bedside COVID-19 Antigen Test NOW Care 02/12/25 12:58 Active EKG (ED ONLY) *Do not use* NOW Care 02/12/25 11:[address] abdomen pelvis wo con Stat Exams 02/12/25 09:[address] chest wo con Stat Exams 02/12/25 12:31 Taken EKG (ED Only) Stat Exams 02/12/25 11:59 Draft B-Type Natriuretic Peptide Stat Lab 02/12/25 12:11 Completed Blood Culture (Lab) Stat Lab 02/12/25 12:11 Received CBC Stat Lab 02/12/25 09:55 Completed CMP [Comprehensive Metabolic Panel] Stat Lab 02/12/25 09:55 Completed Drug Screen,Urine Stat Lab 02/12/25 11:59 Ordered LDH (Lactate Dehydrogenase) Stat Lab 02/12/25 12:11 Completed Lactic Acid [Lactate (Lactic Acid)] Stat Lab 02/12/25 12:11 Completed Lipase Stat Lab 02/12/25 09:55 Completed Magnesium Stat Lab 02/12/25 12:11 Completed Partial Thromboplastin Time Stat Lab 02/12/25 12:11 Completed Procalcitonin Stat Lab 02/12/25 12:11 Completed Prothrombin Time with INR Stat Lab 02/12/25 12:11 Completed UA [Urinalysis] Stat Lab 02/12/25 11:22 Completed Urinalysis Stat Lab 02/12/25 11:59 Ordered Urine Culture Stat Lab 02/12/25 11:22 Received Morphine Inj Med 02/12/25 11:55 Discontinued 4 mg IVP X1 ONE Ondansetron Inj [Zofran Inj] Med 02/12/25 11:55 Discontinued 4 mg IV X1 ONE Piper/Tazo 3.375 gm Premix [Zosyn] Med 02/12/25 12:31 Discontinued 3.375 gm in 50 ml IV X1 Sodium Chloride 0.9% 1000 ml [Ns] 1,000 ml Med 02/12/25 11:48 Active IV 25 mls/hr Vital Signs Vital signs: Vital Signs Temperature 98.1 F 02/12/25 09:11 Pulse Rate 88 02/12/25 09:11 Respiratory Rate 20 02/12/25 09:11 Blood Pressure 133/72 H 02/12/25 09:11 Pulse Oximetry (%) 97 02/12/25 09:11 Oxygen Delivery Method Room Air 02/12/25 09:11 Discharge Plan Plan Patient Disposition: Other Care w/in Hosp ([facility]) Patient condition on transfer: Stable Prescriptions/Referrals Prescriptions/Med Rec: No Action guaifenesin 200 mg/5 mL liquid 200 mg PO Q4H PRN (Reason: cough) Qty: 118 0RF albuterol sulfate 90 mcg/actuation HFA aerosol inhaler 2 puff inhalation Q6H PRN (Reason: shortness of breath or wheezing) Qty: 8.5 0RF cefdinir 300 mg capsule 300 mg PO BID Qty: 14 0RF fluconazole [Diflucan] 200 mg tablet 400 mg PO QDAY Qty: 30 1RF Referrals: Semaj Matthews MD [Primary Care Provider] - In 1 week Problem List Clinical Impression: Pulmonary cavitary lesion, Acute hyponatremia, Peritoneal dialysis catheter in place, ESRD (end stage renal disease) Patient/Caregiver Discharge Instructions Print Language: Qatari Stand Alone Forms: Cinthia Award Info., Patient Portal Info Letter PA/JAVA MANAGER Supervising Physician PA/JAVA MANAGER Supervising Physician: Constantine Schumacher ENP MDM Patient Acuity High Acuity (complete MDM) Narrative: Peritoneal dialysis Clinical Information Provided by: patient Meds/Rx considered, not ordered None Labs/Rad/Tests considered, not ordered None Chronic Illness/Social Conditions Explain: Peritoneal dialysis Labs Lab(s) Interpretation(s): CBC shows a leukocytosis of 20,000 H&H of 10.4 and 28.0. Platelets of 201. No bandemia. Coags within acceptable limits Sodium at 116 potassium 3.9 chloride of 86 CO2 of 14.7 gap of 15 BUN of 154 creatinine of 24.6 glucose of 97 Lactic of 0.9 corrected calcium at 7.1 magnesium 1.8. Total bili at 0.2 no transaminitis BNP 91 lipase at 125 Pro-Isael at 1.70 Medication Administration(s) Medication Administration History Sodium Chloride (Ns) 1,000 mls @ 25 mls/hr IV .Q24H [facility] Stop: 03/14/25 11:47 Last Admin: 02/12/25 12:18 Dose: 25 mls/hr Documented By: RICHAR Discontinued Medications Piperacillin/Tazobactam/Dextrose (Zosyn) 3.375 gm in 50 mls @ 100 mls/hr IV X1 ONE Stop: 02/12/25 13:00 Last Infusion: 02/12/25 13:25 Dose: Infused Documented By: Admin: 02/12/25 12:54 Dose: 100 mls/hr Documented By: IRCHAR Morphine Sulfate (Morphine Sulf Inj 10 Mg/Ml Vial) 4 mg IVP X1 ONE Stop: 02/12/25 11:56 Last Admin: 02/12/25 12:21 Dose: 4 mg Documented By: RICHAR Ondansetron HCl (Ondansetron Inj 2 Mg/Ml Inj 2 Ml) 4 mg IV X1 ONE; Protocol Stop: 02/12/25 11:56 Last Admin: 02/12/25 12:17 Dose: 4 mg Documented By: RICHAR
--- NOTE | 2025-02-12 11:59 | EKG_ITS ---
[facility] Test Date: 2025-02-12 Pat Name: LINNETTE RODRÍGUEZ Department: Room: - Gender: Male Mobile Lounge Driver: : 1990 Requested By: Constantine Castillo Order Number: [id number] Reading MD: Constantine Castillo Measurements Intervals [place] Rate: 76 P: 71 VT: 179 QRS: 14 QRSD: 104 T: 40 QT: 390 QTc: 440 Interpretive Statements SINUS RHYTHM POSSIBLE ANTERIOR MYOCARDIAL INFARCTION , OF INDETERMINATE AGE [30 ms Q WAVE IN V3/V4, OR R < 0.2 mV IN V4] No previous ECG available for comparison /store/S0/[id number]
[2025-02-12] MEDS: ONDANSETRON INJ 2 MG/ML INJ 2 ML 4 MG IV (12:17)
[2025-02-12] MEDS: SODIUM CHLORIDE 0.9% 1000 ML 1,000 ML 25 ML IV (12:18)
[2025-02-12 12:20] LABS: Bacteria,Urine Rare; Bilirubin,Urine Negative (Negative); Blood,Urine 1+ (Negative); Clarity,Urine Clear (Clear/Hazy); Color,Urine Lt-Yellow (Lt Yel-Yel); Glucose, Urine 2+ (Negative); Ketones,Urine Negative (Negative); Leukocyte Esterase,Urine Negative (Negative); Nitrite,Urine Negative (Negative); PH,Urine 6.5 (5.0-7.0); Protein,Urine 3+ (Neg - Trace); RBC,Urine 5 /hpf (0-3); Specific Gravity,Urine 1.026 (1.001-1.035); Squamous Epithelial Cell,Urine < 1 /hpf (0-5); Urobilinogen,Urine Negative mg/dL (0.0-1.0); WBC,Urine 27 /hpf (0-5)
[2025-02-12] MEDS: MORPHINE SULF INJ 10 MG/ML VIAL 4 MG IVP (12:21)
[2025-02-12 12:24] LABS: Lactate (Lactic Acid) 0.9 mMol/L (0.4-2.0)
--- NOTE | 2025-02-12 12:31 | XR_ITS ---
Examination: CT chest, without intravenous contrast. Sagittal and coronal 2-D reconstructions. Exam date and time: February 12, 2025 1436 hours INDICATIONS: Cavitary lesion in the chest on CT abdomen study this morning CTDI:vol (mGy) 18.9 DLP: (mGycm) 691 Technique: Multiple 3.0 mm axial sections of the chest to been obtained. Bone and lung density settings are obtained. Sagittal and coronal 2-D reconstructions have been obtained. Low dose protocols were performed. One or more of the following dose reduction techniques were used; automated exposure control, adjustment of the mA and/or KV according to patient size, use of iterative reconstruction technique. Findings: Subcentimeter right tracheobronchial lymph nodes Thick-walled cavitary lesion in the right upper lobe contiguous with the mediastinum, at least 5 x 3 cm Nodular parenchymal disease in the right middle lobe Calcified 11 mm nodule left lower lobe No pleural disease IMPRESSION: 5 x 3 cm thick-walled cavitary lesion in the right upper lobe contiguous with the mediastinum Milder nodular parenchymal disease in the right middle lobe Given the patient's age infectious processes including active tuberculosis would be highest on the differential list, pulmonary neoplasm not excluded
[2025-02-12 12:41] LABS: INR 1.1 (0.9-1.3); Partial Thromboplastin Time 33.7 Seconds (22.0-36.0); Prothrombin Time 11.7 Seconds (9.0-12.2)
[2025-02-12 12:48] LABS: B-Type Natriuretic Peptide 91 pg/mL (0-100)
[2025-02-12 12:52] LABS: LDH (Lactate Dehydrogenase) 248 U/L (120-246); Magnesium 1.8 mg/dL (1.6-2.6)
[2025-02-12] MEDS: PIPER/TAZO 3.375 GM PREMIX 3.375 GM/50 ML BAG IV ×2 (12:54→22:13)
--- NOTE | 2025-02-12 13:14 | PC.NURSE ---
PT CAME WITH SISTER TO THE ED FOR BACK PAIN AND VOMITING BLOOD.
--- NOTE | 2025-02-12 14:03 | PC.NURSE ---
PT REQUESTED TO TALK TO .
[2025-02-12 17:42] LABS: Amphetamine/Methamp Scrn,U Negative (Negative); Barbiturate Screen,Urine Negative (Negative); Benzodiazepines Screen,Urine Negative (Negative); Benzoylecgonine Screen, Ur Negative (Negative); Fentanyl Screen,Urine Negative (Negative); Opiate Screen,Urine Positive (Negative); THC Screen,Urine Negative (Negative)
[2025-02-12 17:44] LABS: Base Excess -11 (-3-3); HCO3 15 mEq/L (20-26); Inspired Oxygen, FIO2 21 %; O2 Saturation 83 % (91-98); PCO2 35 mmHg (32.0-48.0); pH, Arterial 7.25 (7.35-7.45)
[2025-02-12 17:51] LABS: Allen Test Performed/OK; Puncture Site Right Radial
[2025-02-12 17:52] LABS: HIV (1&2) Antibody Rapid Non-Reactive
[2025-02-12 17:52] LABS: PO2 57 mmHg (83-108)
--- NOTE | 2025-02-12 17:58 | PC.NURSE ---
ARGELIA AND HOSPITALIST NOTIFED OF LOW PA02 OF 57. NO NEW ORDERS
[2025-02-12 18:07] LABS: Anion Gap 16 (7-16); BUN/Creatinine Ratio 6 Ratio (12-20); Calcium (Corrected) 7.8 mg/dL (8.5-10.1); Chloride 86 mMol/L (98-107); Glucose 92 mg/dL (74-106); Osmolality,Calculated 285 (275-295); Potassium 4.2 mMol/L (3.4-5.1); Triglycerides 113 mg/dL (30-150); eGFR 2 See Note
[2025-02-12 18:08] LABS: OBS Performed By MACIS3; OBS QC OK? Yes; Occult Blood, Stool Negative (Negative)
[2025-02-12 18:09] LABS: OBS Developer Expiration Date 123126; OBS Developer Lot # 1-24 551749
[2025-02-12 18:09] LABS: Phosphorous 13.1 mg/dL (2.4-5.1)
[2025-02-12 18:10] LABS: Blood Urea Nitrogen > 150 mg/dL (9-23); Creatinine (Component) 24.9 mg/dL (0.6-1.3)
[2025-02-12 18:11] LABS: Sodium 117 mMol/L (136-145)
--- NOTE | 2025-02-12 18:14 | PC.NURSE ---
SONDRA NOTIFED OF LOW NA LEVEL OF 117. NO NEW ORDERS GIVEN
[2025-02-12] MEDS: CALCIUM GLUC/NS 1000MG IVPB 1,000 MG/50 ML BAG 50 MG IV (18:15)
--- NOTE | 2025-02-12 18:18 | ESHP_ITS ---
Documentation for date of: 02/12/25 [facility] History of Present Illness History of present illness: CC: Back pain and coughing blood Patient is a 34-year-old male with a past medical history of hypertension and ESRD on peritoneal dialysis for the past 3 years, patient is unsure of how he developed end-stage kidney disease, who follows with Dr. Zamora. Patient stated he began to feel lower back pain over the past 2 days, denied any radiation to her flanks. Subjective fevers. Chills. Patient denied any recent traumatic injury. Patient still has full control of upper and lower extremities. Full sensation of upper and lower extremities. Patient is also complaining of hemoptysis since 05 February. Patient is also complaining of hematemesis. Dysphagia, associated with foods and liquids and usually associated with hemoptysis and hematemesis. Patient denied past medical history of tuberculosis or cocci. Patient was born in [place]. And had a recent travel several months ago out of the country to [place]. Patient denied any chest pain or shortness of breath. Patient denied any diarrhea. Patient denied any melena or hematochezia. Patient stated he is compliant with peritoneal dialysis every night. ER Course: ER Course Patient's vitals upon arrival were stable with BP 126/82, HR 88, RR 20, and saturating well on room air. No pyrexia noted. Noted to have hyponatremia of 116, hypocholermia of 86, metabolic acidosis with bicarb of 14.7, anion gap of 15, and BUN of 154, cr 24.6, and GFR of 2. Osmolarity of 285 (N). Hypocalcemia of 7.7. Total bili within normal range .AST and ALT within range. Likely infectious process with Lactate Dehydrognease of 248, Procal 1.70, and lactic acid of 0.9. UA was significant for protien, glucose, blood/RBC 5 and WBC of 27. Chest x-ray showed a 5.[address] chest noted for 5 X 3 cm thick-walled cavitary lesion in the right upper lobe with the mediastinum. Parenchymal disease in the right middle lobe. CT abdomen noted for gastritis pattern, hepaocellular disease, and peritoneal dialysis cathetere with free fluid in the abdomen Admitted on 02/12/2025 for Sepsis secondary to pneumonia with cavitary lesions and metabolic acidosis with anion gap. PMH: HTN ESRD Past Surgical History: Denied Past Surgical history Past Family History: Unsure of past family history Home Medication: Albuterol Amlodipine 10 mg [place] Fluconazole (patient is unsure why he is taking this medication) Social History: Denied Alcohol Use Denied Illicit Drug Use Allergies: None Code Status: Full Code Review of Systems Review of Systems Narrative Review of Systems: General appearance: NO weight change, YES fatigue, NO weakness, Subjective at home fever, YES chills, NO night sweats, YES cough Skin: NO rash, NO itching, NO sores, NO moles HEENT: NO Trauma, NO nausea, NO vomiting, NO visual changes, NO blurry vision, NO double vision, NO tinnitus, NO vertigo, NO ear discharge, NO rhinorrhea, NO stuffiness, NO sneezing, NO allergy, NO epistaxis. NO Hoarseness, NO sore throat, NO swollen neck. Cardiac: NO Palpitations, NO dyspnea on exertion, NO orthopnea, NO paroxysmal nocturnal dyspnea, NO edema Respiratory: NO Shortness of Breath, NO Wheezing, YES Cough, YES Sputum, YES hemoptysis GI:NO appetite, NO nausea, NO vomiting, NO dysphagia, NO changes in bowel frequency, NO stool color, NO diarrhea, NO constipation, NO hemetemesis, NO hemorrhoids, NO melena, NO hematechezia, NO abdominal pain, NO jaundice Renal: NO frequency, NO hesitancy, NO urgency, NO hematuria, NO nocturia, NO incontinence, YES ESRD MSK: NO muscle weakness, NO gout, NO arthritis, NO muscle stiffness Neuro: NO headaches, NO tremors, NO weakness, NO paralysis, NO seizures, NO loss of consciousness, NO numbness. Hem: NO anemia, NO easy bruising/bleeding, NO petechiae, NO purpura Endo: NO heat/cold intolerance, NO excessive sweating, NO polyuria, NO polydipsia, NO polyphagia, NO thyroid problems, NO diabetes Pysch: NO mood, NO anxiety, NO depression Exam Vital Signs Temp Pulse Resp BP Pulse Ox O2 Del Method 98.8 F 78 18 165/85 H 94 L Room Air 02/12/25 17:12 02/12/25 17:12 02/12/25 17:12 02/12/25 17:12 02/12/25 17:12 02/12/25 17:12 Narrative Exam General Appearance: Alert & Oriented X3, well-nourished male who is lying in bed in mild distressed HEENT: Skull symmetrical and atraumatic. Conjunctivae pin and moist. Pupils equal, round, reactive to light and accommodation (PERRL). External ear without lesion or discharge. Straight, nares patient, mucosa pink, no discharge. No thyroid nodule appreciated. No cervical lymphadenopathy. Cardio: Normal Rate and Rhythm with S1 and S2 heart sounds. No murmurs or extra heart sounds auscultated. No bruits on carotid auscultation. No peripheral edema or cyanosis. Lungs: Symmetric with good expansion. Chest and back non-tender. Breath sounds vesicular without crackles, wheezing or rhonchi Abdomen: mild tender, Non-distended, Normal Reactive Bowel Sounds, negative lara's sign Neuro: Alert, cooperative, oriented to person, place, and time. Speech clear. CN grossly intact. Upper motor strength 5/5 and Lower motor strength 5/5. Sensation intact. Results: Labs 02/13/25 06:21 02/13/25 06:21 Labs: Short CBC 02/12/25 Range/Units 09:55 WBC 20.1 H (3.8-10.6) Thou/mm3 Hgb 10.4 L (13.5-16.0) g/dL Hct 28.0 L (41.0-53.0) % Plt Count 201 D (140-440) Thou/mm3 BMP 02/12/25 02/12/25 09:55 17:14 Sodium 116 L* 117 L* Potassium 3.9 4.2 Chloride 86 L 86 L Carbon Dioxide 14.7 L* 15.0 L BUN 154 H* > 150 H* Creatinine 24.6 H* 24.9 H* Glucose 97 92 Calcium 7.1 L 7.0 L Liver Function 02/12/25 02/12/25 Range/Units 09:55 17:14 Total Bilirubin 0.2 L (0.3-1.2) mg/dL AST 11 (0-34) U/L ALT 15 (10-49) U/L Alkaline Phosphatase 143 H (46-116) U/L Albumin 3.2 L 3.0 L (3.5-5.0) gm/dL Urine 02/12/25 Range/Units 11:22 Urine Color Lt-Yellow (Lt Yel-Yel) Urine Clarity Clear (Clear/Hazy) Urine pH 6.5 (5.0-7.0) Ur Specific [place] 1.026 (1.001-1.035) Urine Protein 3+ A (Neg - Trace) Urine Glucose (UA) 2+ A (Negative) ABG Interpretation ABG results: 02/12/25 17:19 ABG pH 7.25 L ABG pCO2 35 ABG pO2 57 L* ABG HCO3 15 L ABG O2 Saturation 83 L ABG Base Excess -11 L Quality Measures Quality Measures none Medications Home Medications and Allergies Allergies Allergy/AdvReac Type Severity Reaction Status Date / Time No Known Allergies Allergy Verified 01/28/25 11:04 Visit Medications Acetaminophen (Acetaminophen 325 Mg Tablet) 650 mg PO Q6H PRN PRN Reason: Mild Pain 1-3 or Fever >100.3 Stop: 03/14/25 15:49 Piperacillin/Tazobactam/Dextrose (Zosyn) 3.375 gm in 50 mls @ 12.5 mls/hr IV Q12HR BONNIE Stop: 02/19/25 21:59 Ondansetron HCl (Ondansetron Inj 2 Mg/Ml Inj 2 Ml) 4 mg IV Q6H PRN; Protocol PRN Reason: NAUSEA OR VOMITING Stop: 03/14/25 15:49 Pantoprazole Sodium (Pantoprazole 40 Mg Tablet) 40 mg PO Q12HR BONNIE Stop: 03/14/25 20:59 Sennosides (Senna Tablet) 1 tab PO QDAY PRN; Protocol PRN Reason: constipation Stop: 03/14/25 15:49 Discontinued Medications Calcium Gluconate (Calcium Gluconate 10% Inj 1 Gm/10 Ml Vial) 1 gm IV X1 ONE Stop: 02/12/25 16:57 Sodium Chloride (Ns) 1,000 mls @ 25 mls/hr IV .Q24H BONNIE Stop: 03/14/25 11:47 Last Admin: 02/12/25 12:18 Dose: 25 mls/hr Piperacillin/Tazobactam/Dextrose (Zosyn) 3.375 gm in 50 mls @ 100 mls/hr IV X1 ONE Stop: 02/12/25 13:00 Last Infusion: 02/12/25 13:25 Dose: Infused Calcium Gluconate/Sodium Chloride (Calcium Gluc/Ns 1000mg Ivpb) 1,000 mg in 50 mls @ 50 mls/hr IV NOW ONE Stop: 02/12/25 18:14 Morphine Sulfate (Morphine Sulf Inj 10 Mg/Ml Vial) 4 mg IVP X1 ONE Stop: 02/12/25 11:56 Last Admin: 02/12/25 12:21 Dose: 4 mg Ondansetron HCl (Ondansetron Inj 2 Mg/Ml Inj 2 Ml) 4 mg IV X1 ONE; Protocol Stop: 02/12/25 11:56 Last Admin: 02/12/25 12:17 Dose: 4 mg Pharmacy Consult (Pharmacy To Consult Patient) 1 each XX PRN PRN PRN Reason: CONSULT Stop: 03/14/25 16:29 Sodium Chloride (Sodium Chloride Rt 10% 15 Ml Nebu) 5 ml INH X1 ONE Stop: 02/12/25 15:51 Last Admin: 02/12/25 16:42 Dose: Not Given Sodium Chloride (Sodium Chloride Rt 10% 15 Ml Nebu) 5 ml INH X1 ONE Stop: 02/12/25 16:28 Last Admin: 02/12/25 16:42 Dose: Not Given Assessment & Plan Plan #Sepsis secondary to pneumonia, with cavitary lesion #Hemoptysis #Cavitary lesion #Leukocytosis Patient arrived to the emergency room with a chief complaint of hemoptysis and hematemesis with chills and subjective fevers at home with a chest x-ray showing dense consolidation in the mid lung, thus pneumonia can not be ruled out. Meeting sepsis criter given SOFA of 4 with end organ damage from kidneys'. Infectious consolidation can not be ruled out given leukocytosis thus CAP vs cocci given endemic region vs suspcision for tuberculosis given recent travel, chills and hemoptysis. Given use of PD dialysis, intra-abdominal infection can not be ruled out. Although less likely, autoimmune process can not be ruled out given patient's young age and history of ESRD with bilateral atrophic kidneys, such as granulomatosis with polyangiitis given lung, kidney, and dysphagia complain. Diagnostics: CT chest thick walled cavitary lesion in the right upper lobe contiguous w/ mediastium milder nodular parnchymal disease in right lmiddle lobe CT Abdomen: CT Abdomen/Pelvis noted to have 5 mm thick walled cavitary lesion in the right lung, gastritis pattern, suspected primary hepatocellular disease . Peritoneael dialysis cathete with free fluid in the abdomen and mild ascites Procalcitionin 1.70 SOFA 4 Plan -Isolation Precautions -Zosyn (02/12/2025) -Protonix 40 mg BID -triglycerides -Blood Cultures, sputum, and urine culture, peritoneal culture -AFB cultures, QTF Gold -Consult infectious Disease #Metabolic Acidosis, anion gap #Uremic #Hypocholoremia #hyperphosphatemia #Hypocalcemia Patient arrived with metabolic acidosis with bicarb of 14.7, anion gap of 15. Metabolic acidosis likely secondary to uremia given elevated BUN of 154. Less likley secondary to lactic acidosis given Lactic acid of 0.4. No history of diabetes, less likely secondary to DKA, no ketones noted in the urine. Nephrology consulted, patient follows Dr. Acosta. Plan -Treat underlying cause of uremia -Dialysis to correct electrolytes #Isosmotic Hyponatremic, isovolemic Patient presented with hyponatremia of 116, with osmolarity within normal range, and does not appear hypovolemic, thus consider isosmotic hyponatremia secondary to uremia vs worsening ESRD given noncompliance of PD dialysis. Na deficit 1334 plan -Fluid restriction 1000 Liters -dialysis #ESRD on Peritoneal dialysis Patient stated he is compliant with PD dialysis at home every night. Patient denied any discharge form line or infectious process noted coming form line. No animal at home. Plan -Nephrology consult -PD dialysis -renally dose medication -avoid nephrotoxins #Dysphagia Patient is complaining of dyspahgia with food, denied pain, denied regurgitation of food. Dysphagia maybe secondary to hematemsis. Mechanical causes versus motility can not be ruled out. Plan -NPO -speech evaluation -Consult GI, Dr. Hinton, appreciate recommendations. #Microcytic Anemia #Acute Blood Loss Anemia noted on labs with hgb of 8.6, hct of 14.7, and MCV of 75, no previous CBC on file. Given recent hemoptysis and hemetemsis, acute blood loss can not be ruled out vs iron deficiency vs chronic disease given 3 year history of ESRD. Plan -continue to monitor hgb and hct -transfuse <7 hgb #Hypertension Holding Amlodipine, given patient will likely develop hypotension during PD dialysis. Plan -Hold Amlodipine 10 mg -revevaluate after dialysis #Back Pain Patient complaining of back pain that developed acutely within the last two days. Denied flank pain. No calculi noted on imagining. Denied UTI sympotms. Plan -Tylenol -Consider Dilaudid 0.5 X 1 #Mild Fluid Subscapular to liver Health Maintenance: Disp: Pt is currently admitted to floors for further management of sepsis in the setting of organ dysfunction, awaiting dialysis, cultures, AFB, and QFT FEN: NPO, until speech therapy DVT: compression device Code: Full code - The patient's plan was discussed with attending Dr. Vazquez and senior residents Dr. Quin Andrews MD PGY1 Internal Medicine Senior resident attestation: Patient is a 34-year-old male, history of end-stage renal disease on peritoneal dialysis at home, came into the ER complaining of difficulty swallowing, vomiting, hematemesis and hemoptysis, subjective complaint of fever over the past week. Patient had recent visits to the ER for complaint of cough and dysphagia, was found to have cavitary lesion on chest x-ray last week, sent home on Diflucan with advice for follow-up. Patient returns to the emergency room complaining of hematemesis and hemoptysis, difficulty swallowing, vomiting, back pain. Chest imaging shows 5 x 3 cm cavitary lesion right upper lobe contiguous with mediastinum, possible infectious process, active tuberculosis. Abdominal CT shows hepatocellular disease, PD catheter with free fluid in the abdomen. Labs show metabolic acidosis, sodium 116, potassium 3.9, BUN 154, creatinine 24.6, phosphorus 13, patient will be admitted for initiating dialysis, workup for active tuberculosis, isolation precautions. #Sepsis secondary to cavitary pneumonia? cavitary lesion on imaging contiguous to mediastinum 5x3 cm, leukocytosis, patient did receive steroids recently. Placed in isolation room, rule out active tuberculosis due to history of hemoptysis/less likely hematemesis. Other differential diagnosis include coccidiomycosis, aspergillosis. Ordered QuantiFERON, AFB culture and smear, sputum culture, blood culture, started Zosyn, renally dosed. #ESRD on PD? #Hyperphosphatemia?phosphorus 13, secondary to end-stage renal disease, likely contributing to hypocalcemia. #Metabolic acidosis, bicarb 15, normal anion gap, night time nanny Dr. Shah was consulted, Spoke to the night time nanny about patient's severe electrolyte abnormalities, will continue with urgent peritoneal dialysis for now. ABG shows pH 7.25, PO2 57, SPO2 in the 80s, patient is saturating 95% on pulse ox, likely a venous sample, no acute respiratory distress at the moment, # Hyponatremia, most osmolar hyponatremia, likely pseudohyponatremia in the setting of uremia and peritoneal dialysis. #Dysphagia?complaining of dysphagia and hematemesis, will get GI consult on board for possible EGD. Zofran on board. #Transaminitis?will get hepatitis/HIV serology. Patient evaluated and examined at the bedside, plan of care discussed with rest of the team including my attending physician, except as noted. Quin PGY2 Attending Provider Attestation/Addendum I reviewed labs, imaging, EKG, home medications and prior available records. Face to face evaluation was performed by me. I have personally examined the patient and discussed assessment and plan with the IM team. I reviewed the resident note and agree with the plan with exceptions as below. Cavitary lung lesion ESRD on peritoneal dialysis Low back pain Hyponatremia Leukocytosis Dysphagia Hematemesis Possible hemoptysis Stop Sent blood cultures Diagnostic paracentesis Consulted nephrology for peritoneal dialysis Monitor sodium level. Avoid rapid correction. Nephrology consulted Consulted GI given the reported hemoptysis and dysphagia for possible EGD Sent AFBs and QuantiFERON. Consult ID
--- NOTE | 2025-02-12 19:26 | PC.RT ---
pt able to expectorate sputum at 18:20, red thin sputum for AFB, sent to lab at this time.
[2025-02-12 19:52] LABS: Cult AFB Sendout- Sputum* See Sep Rpt
--- NOTE | 2025-02-12 21:25 | ESCONSULT_ITS ---
HPI Data of Consult Requesting Physician: Baltazar Vazquez MD Primary Care Provider: Semaj Matthews MD Consult Narrative Reason for consult: Dysphagia History of present illness: 34-year-old male presented to hospital with fever who has a history of CKD on peritoneal dialysis Patient also had bilateral flank pain difficulty swallowing has been progressive Imaging studies have shown have shown a right cavitary lesion I been consulted cc:: cc: Baltazar Vazquez MD Review of Systems Review of Systems Systems Reviewed: All systems reviewed, normal except as documented Past Medical History Surgical History OTHER SURGICAL HX: As in the history of present illness Meds Home Medications and Allergies Allergies Allergy/AdvReac Type Severity Reaction Status Date / Time No Known Allergies Allergy Verified 01/28/25 11:04 Exam Vital Signs Temp Pulse Resp BP Pulse Ox O2 Del Method 97.8 F 88 20 146/71 H 93 L Room Air 02/12/25 18:40 02/12/25 19:25 02/12/25 19:25 02/12/25 18:40 02/12/25 19:02/12/25 18:40 Constitutional Comments: Chronically ill-appearing Routine Respiratory Exam Comments: Normal to auscultation Routine Abdominal Exam Comments: Soft nontender Results Labs 02/14/25 05:24 02/14/25 05:24 Labs: Short CBC 02/12/25 Range/Units 09:55 WBC 20.1 H (3.8-10.6) Thou/mm3 Hgb 10.4 L (13.5-16.0) g/dL Hct 28.0 L (41.0-53.0) % Plt Count 201 D (140-440) Thou/mm3 BMP 02/12/25 02/12/25 09:55 17:14 Sodium 116 L* 117 L* Potassium 3.9 4.2 Chloride 86 L 86 L Carbon Dioxide 14.7 L* 15.0 L BUN 154 H* > 150 H* Creatinine 24.6 H* 24.9 H* Glucose 97 92 Calcium 7.1 L 7.0 L Liver Function 02/12/25 02/12/25 Range/Units 09:55 17:14 Total Bilirubin 0.2 L (0.3-1.2) mg/dL AST 11 (0-34) U/L ALT 15 (10-49) U/L Alkaline Phosphatase 143 H (46-116) U/L Albumin 3.2 L 3.0 L (3.5-5.0) gm/dL Urine 02/12/25 Range/Units 11:22 Urine Color Lt-Yellow (Lt Yel-Yel) Urine Clarity Clear (Clear/Hazy) Urine pH 6.5 (5.0-7.0) Ur Specific [place] 1.026 (1.001-1.035) Urine Protein 3+ A (Neg - Trace) Urine Glucose (UA) 2+ A (Negative) ABG Interpretation ABG results: 02/12/25 17:19 ABG pH 7.25 L ABG pCO2 35 ABG pO2 57 L* ABG HCO3 15 L ABG O2 Saturation 83 L ABG Base Excess -11 L Assessment and Plan Additional Assessment & Plan Additional Plan: # Progressive dysphagia Plan Fiberoptic esophagogastroduodenoscopy with possible therapeutic intervention possible biopsy under intravenous moderate sedation scheduled for tomorrow consent obtained N.p.o. except meds Other medical problems include CKD on peritoneal dialysis Bilateral flank pain Fever Cavitary lesion lung Thank you very much for the opportunity to participate in the care of this patient
[2025-02-12] MEDS: PANTOPRAZOLE INJ 40 MG VIAL IVP (22:13)
[2025-02-12 22:31] LABS: Sodium 115 mMol/L (136-145)
[2025-02-13] VITALS (20 sets, daily range): BP systolic 130–182; BP diastolic 73–106; PULSE 85–107; RESP 12–96; TEMP 36.8–38; O2SAT 93–99; BMI 38.9
[2025-02-13 03:36] LABS: Cult AFB Sendout- Sputum* See Sep Rpt
[2025-02-13] MEDS: SODIUM CHLORIDE 1 GM TABLET PO (05:35)
[2025-02-13 06:30] LABS: Quantiferon-TB* See Sep Rpt
[2025-02-13 06:39] LABS: Basophils % (Auto) 0 % (0-2.5); Eosinophils # (Auto) 0.1 Thou/mm3 (0.0-0.5); Eosinophils % (Auto) 0 % (0-10); Hematocrit 26.1 % (41.0-53.0); Hemoglobin 9.7 g/dL (13.5-16.0); Immature Granulocytes % (Auto) 2 % (0-0); Immature Granulocytes Auto 0.38 Thou/mm3 (0.00-0.00); Lymphocytes # (Auto) 0.2 Thou/mm3 (1.0-4.8); Lymphocytes % (Auto) 1 % (10-50); Mean Corpuscular HGB Conc 37.2 g/dl (31.0-37.0); Mean Corpuscular Hemoglobin 28.3 pg (25.0-35.0); Mean Corpuscular Volume 76 fL (80-100); Monocytes # (Auto) 1.3 Thou/mm3 (0.0-0.8); Monocytes % (Auto) 6 % (0-12); Neutrophils # (Auto) 21.1 Thou/mm3 (1.8-7.7); Neutrophils % (Auto) 91 % (37-80); Nucleated Red Blood Cell % 0 /100 WBC (0); Platelet Count 244 Thou/mm3 (140-440); RDW Standard Deviation 36.4 fL (35.1-43.9); Red Blood Count 3.43 Miln/mm3 (4.50-5.90); White Blood Count 23.1 Thou/mm3 (3.8-10.6)
[2025-02-13 07:31] LABS: Alanine Aminotransferase 12 U/L (10-49); Albumin, Serum 3.1 gm/dL (3.5-5.0); Albumin/Globulin Ratio 1.2 (1.2-2.2); Alkaline Phosphatase 110 U/L (46-116); Anion Gap 18 (7-16); Aspartate Amino Transferase 10 U/L (0-34); BUN/Creatinine Ratio 6 Ratio (12-20); Bilirubin,Total < 0.2 mg/dL (0.3-1.2); Calcium 7.5 mg/dL (8.3-10.6); Calcium (Corrected) 8.2 mg/dL (8.5-10.1); Cardiac Risk Estimate 2.4 RATIO (4.0-6.7); Chloride 88 mMol/L (98-107); Cholesterol 124 mg/dL (132-200); Estimated Creatinine Clearance 5.5 mL/min (>60); Globulin 2.5 gm/dL (2.3-3.5); Glucose 180 mg/dL (74-106); HDL Cholesterol 52 mg/dL (40-60); LDL Cholesterol,Calculated 55 mg/dL (0-130); Magnesium 1.8 mg/dL (1.6-2.6); Osmolality,Calculated 293 (275-295); Potassium 3.8 mMol/L (3.4-5.1); Sodium 121 mMol/L (136-145); Thyroid Stimulating Hormone 2.28 uIU/mL (0.55-4.78); Total Protein 5.6 gm/dL (5.7-8.2); Triglycerides 84 mg/dL (30-150); eGFR 2 See Note
[2025-02-13 07:37] LABS: Carbon Dioxide 14.7 mMol/L (20.0-31.0)
[2025-02-13 07:38] LABS: Blood Urea Nitrogen 138 mg/dL (9-23); Phosphorous 10.8 mg/dL (2.4-5.1)
[2025-02-13 08:19] LABS: Parathyroid Hormone Intact 1555.4 pg/ml (18.5-88.0)
[2025-02-13] MEDS: PANTOPRAZOLE INJ 40 MG VIAL IVP ×2 (08:33→20:25)
[2025-02-13] MEDS: SEVELAMER CARBONATE 800 MG TABLET PO ×2 (08:33→13:05)
[2025-02-13] MEDS: PIPER/TAZO 3.375 GM PREMIX 3.375 GM/50 ML BAG IV ×2 (08:33→20:25)
[2025-02-13 09:22] LABS: Base Excess, Venous -7 (-3-3); O2 Saturation, Venous 97 % (96-97); PCO2, Venous 26 mmHg (36-56); PO2, Venous 78 mmHg (15-58)
--- NOTE | 2025-02-13 11:04 | PC.PT ---
Last AFB was collected at 10:30-series complete
[2025-02-13 11:32] LABS: Cult AFB Sendout- Sputum* See Sep Rpt
[2025-02-13 12:46] LABS: Hepatitis A Antibody IgM Non Reactive (Non React); Hepatitis B Core Antibody IgM Non Reactive (Non React); Hepatitis B Surface Antigen Non Reactive (Non React); Hepatitis C Antibody Non Reactive (Non React)
[2025-02-13 13:58] LABS: Cocci Serology, IgM Negative (Negative)
--- NOTE | 2025-02-13 14:45 | PC.SS ---
Patient is alert/oriented. Patient was able to verify demographics. Patient is currently in isolation for TB R/o. Patient states he lives with his parents in [place]. D/c [address]: [address] [place], [place] [address] is independent with ADL's. He is on peritoneal dialysis. Chief Projectionist is Dr. Acosta. Patient states he never had hemodialysis. Patient is not employed. He currently receives Social Security income. Patient pending EGD today. PCP: Dr. Matthews /[facility]. Last appt. was 2 days ago. [facility]acy[facility]. Patient verbalized his alt medical decision maker is his sister, Chasity. Patient's d/c plan will be to return home.
--- NOTE | 2025-02-13 14:57 | ESPR_ITS ---
Documentation for date of: 02/13/25 Subjective Subjective Interval history: Overnight, patient recieved PD dialysis. Patient is scheduled to a second inpatient session. Scheduled for EGD. Per nephrology, patient has past medical history of glomerulonephritis, will follow up with office. NPO for EGD w/ gastroenterology. Exam Vital Signs Temp Pulse Resp BP Pulse Ox O2 Del Method 98.7 F 94 24 H 154/86 H 94 L Room Air 02/13/25 12:00 02/13/25 12:00 02/13/25 12:00 02/13/25 12:00 02/13/25 12:02/13/25 12:00 Narrative Exam General Appearance: Alert & Oriented X3, well-nourished male who is lying in bed comfortably HEENT: Skull symmetrical and atraumatic. Conjunctivae pin and moist. Pupils equal, round, reactive to light and accommodation (PERRL). External ear without lesion or discharge. Straight, nares patient, mucosa pink, no discharge. No thyroid nodule appreciated. No cervical lymphadenopathy. Cardio: Normal Rate and Rhythm with S1 and S2 heart sounds. No murmurs or extra heart sounds auscultated. No bruits on carotid auscultation. No peripheral edema or cyanosis. Lungs: Symmetric with good expansion. Chest and back non-tender. Breath sounds vesicular without crackles, wheezing or rhonchi Abdomen: mild tender, Non-distended, Normal Reactive Bowel Sounds, negative lara's sign Neuro: Alert, cooperative, oriented to person, place, and time. Speech clear. CN grossly intact. Upper motor strength 5/5 and Lower motor strength 5/5. Sensation intact. Objective Labs 02/14/25 05:24 02/14/25 05:24 Labs: Laboratory Results - last 24 hr 02/12/25 02/12/25 02/12/25 17:04 17:14 17:19 WBC RBC Hgb Hct MCV MCH MCHC RDW Std Deviation Plt Count Neut % (Auto) Lymph % (Auto) [place] % (Auto) Eos % (Auto) Baso % (Auto) Neut # (Auto) Lymph # (Auto) [place] # (Auto) Eos # (Auto) Baso # (Auto) Immature Gran # (Auto) Absolute Nucleated RBC Immature Gran % Nucleated RBC % Puncture Site Right Radial ABG pH 7.25 L ABG pCO2 35 ABG pO2 57 L* ABG HCO3 15 L ABG O2 Saturation 83 L ABG Base Excess -11 L VBG pH VBG pCO2 VBG pO2 VBG O2 Sat (Sarah) VBG Base Excess FiO2 21 Sodium 117 L* Potassium 4.2 Chloride 86 L Carbon Dioxide 15.0 L Anion Gap 16 BUN > 150 H* Creatinine 24.9 H* Estim Creat Clear Calc 5.0 L eGFR 2 L* BUN/Creatinine Ratio 6 L Glucose 92 Calculated Osmolality 285 Calcium 7.0 L Corrected Calcium 7.8 L Phosphorus 13.1 H Magnesium Total Bilirubin AST ALT Alkaline Phosphatase Total Protein Albumin 3.0 L Globulin Albumin/Globulin Ratio Triglycerides 113 Cholesterol LDL Cholesterol, Calc HDL Cholesterol Cholesterol/HDL Ratio TSH PTH Intact Stool Occult Blood Urine Opiates Screen Positive A Urine Fentanyl Screen Negative Ur Barbiturates Screen Negative U Amphetamin/Meth Scrn Negative U Benzodiazepines Scrn Negative U Cocaine Metab Screen Negative U Marijuana (THC) Screen Negative Coccidioides IgM Ab Negative Hepatitis A IgM Ab Hep Bs Antigen Hep B Core IgM Ab Hepatitis C Antibody HIV 1&2 Antibody Rapid Non-Reactive 02/12/25 02/12/25 02/13/25 17:40 21:40 06:21 WBC 23.1 H RBC 3.43 L Hgb 9.7 L Hct 26.1 L MCV 76 L MCH 28.3 MCHC 37.2 H RDW Std Deviation 36.4 Plt Count 244 D Neut % (Auto) 91 H Lymph % (Auto) 1 L [place] % (Auto) 6 Eos % (Auto) 0 Baso % (Auto) 0 Neut # (Auto) 21.1 H Lymph # (Auto) 0.2 L [place] # (Auto) 1.3 H Eos # (Auto) 0.1 Baso # (Auto) 0.0 Immature Gran # (Auto) 0.38 H Absolute Nucleated RBC 0.00 Immature Gran % 2 H Nucleated RBC % 0 Puncture Site ABG pH ABG pCO2 ABG pO2 ABG HCO3 ABG O2 Saturation ABG Base Excess VBG pH VBG pCO2 VBG pO2 VBG O2 Sat (Sarah) VBG Base Excess FiO2 Sodium 115 L* 121 L Potassium 3.8 Chloride 88 L Carbon Dioxide 14.7 L* Anion Gap 18 H BUN 138 H* Creatinine 23.0 H* D Estim Creat Clear Calc 5.5 L eGFR 2 L* BUN/Creatinine Ratio 6 L Glucose 180 H D Calculated Osmolality 293 Calcium 7.5 L Corrected Calcium 8.2 L Phosphorus 10.8 H Magnesium 1.8 Total Bilirubin < 0.2 L AST 10 ALT 12 Alkaline Phosphatase 110 D Total Protein 5.6 L Albumin 3.1 L Globulin 2.5 Albumin/Globulin Ratio 1.2 Triglycerides 84 Cholesterol 124 L LDL Cholesterol, Calc 55 HDL Cholesterol 52 Cholesterol/HDL Ratio 2.4 L TSH 2.28 PTH Intact 1555.4 H Stool Occult Blood Negative Urine Opiates Screen Urine Fentanyl Screen Ur Barbiturates Screen U Amphetamin/Meth Scrn U Benzodiazepines Scrn U Cocaine Metab Screen U Marijuana (THC) Screen Coccidioides IgM Ab Hepatitis A IgM Ab Non Reactive Hep Bs Antigen Non Reactive Hep B Core IgM Ab Non Reactive Hepatitis C Antibody Non Reactive HIV 1&2 Antibody Rapid 02/13/25 08:55 WBC RBC Hgb Hct MCV MCH MCHC RDW Std Deviation Plt Count Neut % (Auto) Lymph % (Auto) [place] % (Auto) Eos % (Auto) Baso % (Auto) Neut # (Auto) Lymph # (Auto) [place] # (Auto) Eos # (Auto) Baso # (Auto) Immature Gran # (Auto) Absolute Nucleated RBC Immature Gran % Nucleated RBC % Puncture Site ABG pH ABG pCO2 ABG pO2 ABG HCO3 ABG O2 Saturation ABG Base Excess VBG pH 7.40 VBG pCO2 26 L VBG pO2 78 H VBG O2 Sat (Sarah) 97 VBG Base Excess -7 L FiO2 Sodium Potassium Chloride Carbon Dioxide Anion Gap BUN Creatinine Estim Creat Clear Calc eGFR BUN/Creatinine Ratio Glucose Calculated Osmolality Calcium Corrected Calcium Phosphorus Magnesium Total Bilirubin AST ALT Alkaline Phosphatase Total Protein Albumin Globulin Albumin/Globulin Ratio Triglycerides Cholesterol LDL Cholesterol, Calc HDL Cholesterol Cholesterol/HDL Ratio TSH PTH Intact Stool Occult Blood Urine Opiates Screen Urine Fentanyl Screen Ur Barbiturates Screen U Amphetamin/Meth Scrn U Benzodiazepines Scrn U Cocaine Metab Screen U Marijuana (THC) Screen Coccidioides IgM Ab Hepatitis A IgM Ab Hep Bs Antigen Hep B Core IgM Ab Hepatitis C Antibody HIV 1&2 Antibody Rapid ABG Interpretation ABG results: 02/12/25 02/13/25 17:19 08:55 ABG pH 7.25 L ABG pCO2 35 ABG pO2 57 L* ABG HCO3 15 L ABG O2 Saturation 83 L ABG Base Excess -11 L VBG pH 7.40 VBG pCO2 26 L VBG pO2 78 H VBG Base Excess -7 L Quality Measures Quality Measures none Assessment & Plan Assessment Current Active Medications: Generic Name Dose Route Start Last Admin Trade Name Freq PRN Reason Stop Dose Admin Acetaminophen 650 mg 02/12/25 15:50 Acetaminophen 325 Mg Tablet PO 03/14/25 15:49 Q6H PRN Mild Pain 1-3 or Fever >100.3 Guaifenesin/Dextromethorphan 1 each 02/13/25 02:44 Guaifenesin/Dm Tablet PO 03/15/25 02:43 Q8H PRN COUGH Piperacillin/Tazobactam/Dextrose 3.375 gm in 50 mls @ 12.5 mls/hr 02/12/25 22:00 02/13/25 08:33 Zosyn IV 02/19/25 21:59 12.5 mls/hr Q12HR BONNIE Administration Ondansetron HCl 4 mg 02/12/25 15:50 Ondansetron Inj 2 Mg/Ml Inj 2 Ml IV 03/14/25 15:49 Q6H PRN NAUSEA OR VOMITING Protocol Pantoprazole Sodium 40 mg 02/12/25 21:15 02/13/25 08:33 Pantoprazole Inj 40 Mg Vial IVP 03/14/25 21:14 40 mg BID BONNIE Administration Sennosides 1 tab 02/12/25 15:50 Senna Tablet PO 03/14/25 15:49 QDAY PRN constipation Protocol Sevelamer Carbonate 800 mg 02/13/25 08:00 02/13/25 13:05 Sevelamer Carbonate 800 Mg Tablet PO 03/15/25 07:59 800 mg TIDWM BONNIE Administration Plan #Sepsis secondary to pneumonia, with cavitary lesion #Hemoptysis #Cavitary lesion #Leukocytosis Patient arrived to the emergency room with a chief complaint of hemoptysis and hematemesis with chills and subjective fevers at home with a chest x-ray showing dense consolidation in the mid lung, thus pneumonia can not be ruled out. Meeting sepsis criter given SOFA of 4 with end organ damage from kidneys'. Infectious consolidation can not be ruled out given leukocytosis thus CAP vs cocci given endemic region vs suspcision for tuberculosis given recent travel, chills and hemoptysis. Given use of PD dialysis, intra-abdominal infection can not be ruled out. Although less likely, autoimmune process can not be ruled out given patient's young age and history of ESRD with bilateral atrophic kidneys, such as granulomatosis with polyangiitis given lung, kidney, and dysphagia complain. Diagnostics: CT chest thick walled cavitary lesion in the right upper lobe contiguous w/ mediastium milder nodular parnchymal disease in right lmiddle lobe CT Abdomen: CT Abdomen/Pelvis noted to have 5 mm thick walled cavitary lesion in the right lung, gastritis pattern, suspected primary hepatocellular disease . Peritoneael dialysis cathete with free fluid in the abdomen and mild ascites Procalcitionin 1.70 SOFA 4 Plan -Isolation Precautions -Zosyn (02/12/2025) -Protonix 40 mg BID -triglycerides -Blood Cultures, sputum, and urine culture, peritoneal culture -AFB cultures, QTF Gold -Consult infectious Disease #Dysphagia Patient is complaining of dyspahgia with food, denied pain, denied regurgitation of food. Dysphagia maybe secondary to hematemsis. Mechanical causes versus motility can not be ruled out. CT soft tissue (01/28/2025): Nonspecific carotid triangle lymphadenopathy and Significant left maxillary sinus disease Plan -NPO -speech evaluation -Consult GI, Dr. Hinton, appreciate recommendations. #Metabolic Acidosis, anion gap #Uremic #Hypocholoremia #hyperphosphatemia #Hypocalcemia Patient arrived with metabolic acidosis with bicarb of 14.7, anion gap of 15. Metabolic acidosis likely secondary to uremia given elevated BUN of 154. Less likley secondary to lactic acidosis given Lactic acid of 0.4. No history of diabetes, less likely secondary to DKA, no ketones noted in the urine. Nephrology consulted, patient follows Dr. Acosta. Plan -Treat underlying cause of uremia -Dialysis to correct electrolytes #Isosmotic Hyponatremic, isovolemic Patient presented with hyponatremia of 116, with osmolarity within normal range, and does not appear hypovolemic, thus consider isosmotic hyponatremia secondary to uremia vs worsening ESRD given noncompliance of PD dialysis. Na deficit 1334 plan -Fluid restriction 1000 Liters -dialysis #ESRD on Peritoneal dialysis #hx of Glomerulonephritis Patient stated he is compliant with PD dialysis at home every night. Patient denied any discharge form line or infectious process noted coming form line. No animal at home. Plan -Nephrology consult -PD dialysis -renally dose medication -avoid nephrotoxins #Microcytic Anemia #Acute Blood Loss Anemia noted on labs with hgb of 8.6, hct of 14.7, and MCV of 75, no previous CBC on file. Given recent hemoptysis and hemetemsis, acute blood loss can not be ruled out vs iron deficiency vs chronic disease given 3 year history of ESRD. Plan -continue to monitor hgb and hct -transfuse <7 hgb #Hypertension Holding Amlodipine, given patient will likely develop hypotension during PD dialysis. Plan -Hold Amlodipine 10 mg -revevaluate after dialysis #Back Pain Patient complaining of back pain that developed acutely within the last two days. Denied flank pain. No calculi noted on imagining. Denied UTI sympotms. Plan -Tylenol -Consider Dilaudid 0.5 X 1 #Mild Fluid Subscapular to liver Health Maintenance: Disp: Pt is currently admitted to floors for further management of sepsis in the setting of organ dysfunction, awaiting dialysis, cultures, AFB, and QFT and EGD tonight FEN: NPO-->EGD DVT: compression device Code: Full code - The patient's plan was discussed with attending Dr. George Andrews MD PGY1 Internal Medicine Attending Provider Attestation/Addendum I reviewed labs, imaging, EKG, home medications and prior available records. Face to face evaluation was performed by me. I have personally examined the patient and discussed assessment and plan with the IM team. I reviewed the resident note and agree with the plan with exceptions as below. Cavitary lung lesion ESRD on peritoneal dialysis Low back pain Hyponatremia Leukocytosis Dysphagia Hematemesis Possible hemoptysis Continue IV Zosyn Sent blood cultures Trend WBC: Uptrending Diagnostic paracentesis ordered Consulted nephrology for peritoneal dialysis Monitor sodium level: Improved. Avoid rapid correction. Nephrology consulted Consulted GI given the reported hemoptysis and dysphagia for possible EGD: Plan for EGD on 02/13 Sent AFBs and QuantiFERON. Consult ID
--- NOTE | 2025-02-13 17:08 | ESCONSULT_ITS ---
<Statement entered by Keyur Cervantes MD - 02/13/25 17:20> pt seen with resident. all finding s confirmed. may have been more hematemesis that hemoptysis. no gi hx noted. HPI Data of Consult Patient: new to practice Consult date: 02/13/25 Requesting Physician: Baltazar Vazquez MD Admitting Provider: Baltazar Vazquez MD Attending Provider: Baltazar Vazquez MD Primary Care Provider: Semaj Matthews MD Consult Narrative Reason for consult: Hemoptysis and hematemesis History of present illness: Mr. Cerrato is a 34-year-old male with past medical history of peritoneal dialysis for the past [address] Acosta and hypertension who presented to [facility] with a chief complaint of lower back pain. Patient states that he began to feel a back pain over the past 2 days and experienced subjective fevers with chills along with an cough. He states that following his cough he was having episodes of hematemesis. He stated that in his throat he was starting to have a sensation of something being stuck there and he was having difficulty with both solids and liquids. He states that he has never had episodes of hemoptysis in the past and he declined any unexpected weight loss, night sweats, headache. Patient was born in [place] and has had recent travel in the last few months. On chest CT patient was noted to have a cavitary lesion in the right upper lobe measuring 5 x 3 cm with a thick wall and was contiguous with the mediastinum. Given patient's history he was admitted for TB rule out and assessment for source of hemoptysis and hematemesis. PMH: HTN ESRD Past Surgical History: Denied Past Surgical history Past Family History: Unsure of past family history Home Medication: Albuterol Amlodipine 10 mg Sevelamar Fluconazole (patient is unsure why he is taking this medication) Social History: Denied Alcohol Use Denied Illicit Drug Use Allergies: None Code Status: Full Code cc:: cc: Baltazar Vazquez MD Review of Systems Review of Systems Systems Reviewed: All systems reviewed, normal except as documented Exam Vital Signs Temp Pulse Resp BP Pulse Ox O2 Del Method 98.9 F 93 23 H 149/83 H 93 L Room Air 02/13/25 16:00 02/13/25 16:00 02/13/25 16:02/13/25 16:00 02/13/25 16:00 02/13/25 16:00 Narrative Exam General Appearance: Alert & Oriented X3, well-nourished male who is lying in bed comfortably HEENT: Skull symmetrical and atraumatic. Conjunctivae pin and moist. Pupils equal, round, reactive to light and accommodation (PERRL). External ear without lesion or discharge. Straight, nares patient, mucosa pink, no discharge. No thyroid nodule appreciated. No cervical lymphadenopathy. Cardio: Normal Rate and Rhythm with S1 and S2 heart sounds. No murmurs or extra heart sounds auscultated. No bruits on carotid auscultation. No peripheral edema or cyanosis. Lungs: Symmetric with good expansion. Chest and back non-tender. Breath sounds vesicular without crackles, wheezing or rhonchi Abdomen: mild tender, Non-distended, Normal Reactive Bowel Sounds, negative lara's sign Neuro: Alert, cooperative, oriented to person, place, and time. Speech clear. CN grossly intact. Upper motor strength 5/5 and Lower motor strength 5/5. Sensation intact. Results Labs 02/13/25 06:21 02/13/25 06:21 Labs: Short CBC 02/13/25 Range/Units 06:21 WBC 23.1 H (3.8-10.6) Thou/mm3 Hgb 9.7 L (13.5-16.0) g/dL Hct 26.1 L (41.0-53.0) % Plt Count 244 D (140-440) Thou/mm3 BMP 02/12/25 02/12/25 02/13/25 17:14 21:40 06:21 Sodium 117 L* 115 L* 121 L Potassium 4.2 3.8 Chloride 86 L 88 L Carbon Dioxide 15.0 L 14.7 L* BUN > 150 H* 138 H* Creatinine 24.9 H* 23.0 H* D Glucose 92 180 H D Calcium 7.0 L 7.5 L Liver Function 02/12/25 02/13/25 Range/Units 17:14 06:21 Total Bilirubin < 0.2 L (0.3-1.2) mg/dL AST 10 (0-34) U/L ALT 12 (10-49) U/L Alkaline Phosphatase 110 D (46-116) U/L Albumin 3.0 L 3.1 L (3.5-5.0) gm/dL ABG Interpretation ABG results: 02/12/25 02/13/25 17:19 08:55 ABG pH 7.25 L ABG pCO2 35 ABG pO2 57 L* ABG HCO3 15 L ABG O2 Saturation 83 L ABG Base Excess -11 L VBG pH 7.40 VBG pCO2 26 L VBG pO2 78 H VBG Base Excess -7 L Quality Measures Quality Measures none Medications Home Medications and Allergies Allergies Allergy/AdvReac Type Severity Reaction Status Date / Time No Known Allergies Allergy Verified 01/28/25 11:04 Visit Medications Acetaminophen (Acetaminophen 325 Mg Tablet) 650 mg PO Q6H PRN PRN Reason: Mild Pain 1-3 or Fever >100.3 Stop: 03/14/25 15:49 Guaifenesin/Dextromethorphan (Guaifenesin/Dm Tablet) 1 each PO Q8H PRN PRN Reason: COUGH Stop: 03/15/25 02:43 Piperacillin/Tazobactam/Dextrose (Zosyn) 3.375 gm in 50 mls @ 12.5 mls/hr IV Q12HR BONNIE Stop: 02/19/25 21:59 Last Admin: 02/13/25 08:33 Dose: 12.5 mls/hr Ondansetron HCl (Ondansetron Inj 2 Mg/Ml Inj 2 Ml) 4 mg IV Q6H PRN; Protocol PRN Reason: NAUSEA OR VOMITING Stop: 03/14/25 15:49 Pantoprazole Sodium (Pantoprazole Inj 40 Mg Vial) 40 mg IVP BID BONNIE Stop: 03/14/25 21:14 Last Admin: 02/13/25 08:33 Dose: 40 mg Sennosides (Senna Tablet) 1 tab PO QDAY PRN; Protocol PRN Reason: constipation Stop: 03/14/25 15:49 Sevelamer Carbonate (Sevelamer Carbonate 800 Mg Tablet) 800 mg PO TIDWM BONNIE Stop: 03/15/25 07:59 Last Admin: 02/13/25 13:05 Dose: 800 mg Sodium Bicarbonate (Sodium Bicarbonate 650 Mg Tablet) 650 mg PO BID BONNIE Stop: 03/15/25 20:59 Discontinued Medications Calcium Gluconate (Calcium Gluconate 10% Inj 1 Gm/10 Ml Vial) 1 gm IV X1 ONE Stop: 02/12/25 16:57 Last Admin: 02/12/25 20:33 Dose: Not Given Sodium Chloride (Ns) 1,000 mls @ 25 mls/hr IV .Q24H BONNIE Stop: 03/14/25 11:47 Last Admin: 02/12/25 12:18 Dose: 25 mls/hr Piperacillin/Tazobactam/Dextrose (Zosyn) 3.375 gm in 50 mls @ 100 mls/hr IV X1 ONE Stop: 02/12/25 13:00 Last Infusion: 02/12/25 13:25 Dose: Infused Calcium Gluconate/Sodium Chloride (Calcium Gluc/Ns 1000mg Ivpb) 1,000 mg in 50 mls @ 50 mls/hr IV NOW ONE Stop: 02/12/25 18:14 Last Infusion: 02/12/25 19:27 Dose: Infused Morphine Sulfate (Morphine Sulf Inj 10 Mg/Ml Vial) 4 mg IVP X1 ONE Stop: 02/12/25 11:56 Last Admin: 02/12/25 12:21 Dose: 4 mg Ondansetron HCl (Ondansetron Inj 2 Mg/Ml Inj 2 Ml) 4 mg IV X1 ONE; Protocol Stop: 02/12/25 11:56 Last Admin: 02/12/25 12:17 Dose: 4 mg Pantoprazole Sodium (Pantoprazole 40 Mg Tablet) 40 mg PO Q12HR BONNIE Stop: 03/14/25 20:59 Last Admin: 02/12/25 21:34 Dose: Not Given Pharmacy Consult (Pharmacy To Consult Patient) 1 each XX PRN PRN PRN Reason: CONSULT Stop: 03/14/25 16:29 Sodium Chloride (Sodium Chloride Rt 10% 15 Ml Nebu) 5 ml INH X1 ONE Stop: 02/12/25 15:51 Last Admin: 02/12/25 16:42 Dose: Not Given Sodium Chloride (Sodium Chloride Rt 10% 15 Ml Nebu) 5 ml INH X1 ONE Stop: 02/12/25 16:28 Last Admin: 02/12/25 16:42 Dose: Not Given Sodium Chloride (Sodium Chloride 1 Gm Tablet) 1 gm PO X1 ONE Stop: 02/13/25 04:08 Last Admin: 02/13/25 05:35 Dose: 1 gm Assessment & Plan Plan #Right upper lobe cavitary lesion #Hemoptysis Patient noted to have leukocytosis and subjective fever on February 05 100.4 when he came to the emergency department. Chest x-ray from the shows a 5.5 cm dense consolidation in the right lung Chest CT from the reveals a 5 x 3 cm thick-walled cavitary lesion in the right upper lobe Currently on Zosyn IgM negative TB AFB pending, QuantiFERON pending Concern for autoimmune disorder given the fact that patient is 34 with renal failure [place] fever remains higher on differential and tuberculosis given endemic region Will await results of TB testing and EGD Currently on room air and cough is well-controlled Patient counseled to make RT aware if he is coughing up productive mucus Recommend to obtain records from Dr. Acosta in regards to potential renal biopsy to assess for any autoimmune processes that may be involved #Metabolic Acidosis, anion gap #Uremic #Hypocholoremia #hyperphosphatemia #Hypocalcemia #Isosmotic Hyponatremic, isovolemic #ESRD on Peritoneal dialysis #Dysphagia #Microcytic Anemia #Acute Blood Loss #Hypertension #Back Pain #Mild Fluid Subscapular to liver ?Rest of management as per primary team Plan of care discussed with supervising attending Dr Helen Chapin M.D. PGY-3
--- NOTE | 2025-02-13 19:48 | ESCONSULT_ITS ---
RE: LINNETTE RODRÍGUEZ : 1990 DATE OF CONSULTATION: 02/13/2025 REFERRING PHYSICIAN: hospitalist team REASON FOR CONSULTATION: Chronic kidney disease stage V, on peritoneal dialysis with hemoptysis or hematemesis, cavitary lung disease and heart failure. HISTORY OF PRESENT ILLNESS: The patient is an unfortunate 34-year-old man with an echo that did not show good cardiac function. He denies drug use. He has a reduced ejection fraction of 45-50% on echocardiogram. He has a history of diabetes and is on peritoneal dialysis. He does not know why. I do not know what his status is for transplant. He is followed by Dr. Acosta . His AFBs are pending. I note his Cocci IgM is negative, but his cavitary lung disease is usually somewhat chronic, so he may have more subacute or chronic disease if he has cocci, so IgG would be more important.I note that his coughing and hemoptysis have improved. So if his cocci is positive, you can put him on fluconazole 400 mg day or 200 a day given his chronic kidney disease, and I will see him again on Tuesday. Otherwise, he may go home, and we will await some of the studies as an outpatient. AFBs will be pending but probably should be done as an outpatient as well. These have already been collected, and we can wait. If they have not been collected, he can stay here and wait for them. We should have them by tomorrow. DT: 17:25:04 TT: 18:42:00 Ref: [id number] - TID: [id number] [facility]
[2025-02-13] MEDS: amLODIPine BESYLATE 5 MG TABLET PO (22:14)
[2025-02-13] MEDS: SODIUM BICARBONATE 650 MG TABLET PO (22:17)
[2025-02-14] VITALS (12 sets, daily range): BP systolic 128–153; BP diastolic 66–93; PULSE 83–100; RESP 14–97; TEMP 36.5–36.7; O2SAT 93–97; BMI 38.9; BMI 38.7
[2025-02-14 01:30] LABS: Chloride,Urine 38.3 mMol/L (55.0-125.0); Potassium,Urine 19 mMol/L (12-62); Sodium,Urine 45 mMol/L (20-110)
[2025-02-14 01:32] LABS: Chloride, 24 hr Urine 26 mEq/24hr (110-250); Chloride, Urine Volume 680 mL/24hr (600-1800); Potassium, 24hr Urine 13 mEq/24hr (25-125); Potassium, Urine Volume 680 mL/24hr (600-1800); Sodium, Urine Volume 680 mL/24hr (600-1800); Sodium,24hr Urine 31 mEq/24hr (40-220)
[2025-02-14 06:07] LABS: Quantiferon-TB* See Sep Rpt
[2025-02-14 06:23] LABS: Glucose Estimated Average 103 mg/dL (80-131); Hemoglobin A1C 5.2 % Hgb (4.8-6.0)
[2025-02-14 06:52] LABS: Alanine Aminotransferase 10 U/L (10-49); Albumin, Serum 3.1 gm/dL (3.5-5.0); Albumin/Globulin Ratio 1.2 (1.2-2.2); Alkaline Phosphatase 99 U/L (46-116); Anion Gap 18 (7-16); Aspartate Amino Transferase < 10 U/L (0-34); BUN/Creatinine Ratio 6 Ratio (12-20); Bilirubin,Total 0.2 mg/dL (0.3-1.2); Calcium 7.2 mg/dL (8.3-10.6); Calcium (Corrected) 7.9 mg/dL (8.5-10.1); Carbon Dioxide 18.4 mMol/L (20.0-31.0); Chloride 90 mMol/L (98-107); Estimated Creatinine Clearance 5.5 mL/min (>60); Globulin 2.6 gm/dL (2.3-3.5); Glucose 112 mg/dL (74-106); Magnesium 1.7 mg/dL (1.6-2.6); Osmolality,Calculated 303 (275-295); Potassium 3.6 mMol/L (3.4-5.1); Sodium 126 mMol/L (136-145); Total Protein 5.7 gm/dL (5.7-8.2); eGFR 2 See Note
[2025-02-14 07:02] LABS: Blood Urea Nitrogen 149 mg/dL (9-23); Creatinine (Component) 23.2 mg/dL (0.6-1.3); Phosphorous 10.2 mg/dL (2.4-5.1)
[2025-02-14 07:45] LABS: Basophils % (Auto) 0 % (0-2.5); Eosinophils # (Auto) 0.4 Thou/mm3 (0.0-0.5); Eosinophils % (Auto) 2 % (0-10); Hematocrit 26.8 % (41.0-53.0); Hemoglobin 9.8 g/dL (13.5-16.0); Immature Granulocytes % (Auto) 1 % (0-0); Immature Granulocytes Auto 0.19 Thou/mm3 (0.00-0.00); Lymphocytes # (Auto) 0.4 Thou/mm3 (1.0-4.8); Lymphocytes % (Auto) 2 % (10-50); Mean Corpuscular HGB Conc 36.6 g/dl (31.0-37.0); Mean Corpuscular Hemoglobin 27.8 pg (25.0-35.0); Mean Corpuscular Volume 76 fL (80-100); Monocytes # (Auto) 1.8 Thou/mm3 (0.0-0.8); Monocytes % (Auto) 10 % (0-12); Neutrophils % (Auto) 84 % (37-80); Nucleated Red Blood Cell % 0 /100 WBC (0); Platelet Count 157 Thou/mm3 (140-440); RDW Standard Deviation 36.7 fL (35.1-43.9); Red Blood Count 3.53 Miln/mm3 (4.50-5.90); White Blood Count 17.8 Thou/mm3 (3.8-10.6)
[2025-02-14] MEDS: PANTOPRAZOLE INJ 40 MG VIAL IVP ×2 (08:46→20:44)
[2025-02-14] MEDS: SEVELAMER CARBONATE 800 MG TABLET PO ×3 (08:46→17:46)
[2025-02-14] MEDS: SODIUM BICARBONATE 650 MG TABLET PO ×2 (08:46→20:10)
[2025-02-14] MEDS: PIPER/TAZO 3.375 GM PREMIX 3.375 GM/50 ML BAG IV ×2 (08:47→20:09)
[2025-02-14 10:49] LABS: Cocci Serology, IgG Negative (Negative)
[2025-02-14 11:25] LABS: Albumin, Peritoneal Fluid < 1.0 gm/dL; Amylase,Peritoneal Fluid < 20 IU/L; Glucose,Peritoneal Fluid 1038 mg/dL; LDH,Peritoneal Fluid < 14 IU/L; Protein Total,Peritoneal Fluid < 2 g/dL
[2025-02-14 11:33] LABS: Peritoneal Fluid WBC 85 /cmm
[2025-02-14 11:44] LABS: Peritoneal Fluid Appearance Clear; Peritoneal Fluid Color Straw; Peritoneal Fluid Mononuclear 27 %; Peritoneal Fluid Polynuclear 73 %; RBC,Peritoneal Fluid 26 /cmm
--- NOTE | 2025-02-14 12:19 | PD.NEPHCONS ---
History of Present Illness Data of Consult Requesting Physician: Baltazar Vazquez MD Primary Care Provider: Semaj Matthews MD Consult Narrative History of present illness: Mr. 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 Acosta and hypertension who presented to [facility] with a chief complaint of lower back pain. Nephrology is consulted to arrange PD cc:: cc: Baltazar Vazquez MD Review of Systems Review of Systems Systems Reviewed: All systems reviewed, normal except as documented Meds Home Medications and Allergies Allergies Allergy/AdvReac Type Severity Reaction Status Date / Time No Known Allergies Allergy Verified 01/28/25 11:04 Exam Vital Signs Temp Pulse Resp BP Pulse Ox O2 Del Method O2 Flow Rate 98.1 F 93 20 128/66 94 L Room Air 3 02/14/25 09:30 02/14/25 09:30 02/14/25 09:30 02/14/25 08:00 02/14/25 08:00 02/14/25 08:00 02/13/25 21:41 FiO2 85 02/13/25 19:20 Narrative Exam General Appearance: Alert & Oriented X3, well-nourished male who is lying in bed comfortably HEENT: Skull symmetrical and atraumatic. Conjunctivae pin and moist. Pupils equal, round, reactive to light and accommodation (PERRL). External ear without lesion or discharge. Straight, nares patient, mucosa pink, no discharge. No thyroid nodule appreciated. No cervical lymphadenopathy. Cardio: Normal Rate and Rhythm with S1 and S2 heart sounds. No murmurs or extra heart sounds auscultated. No bruits on carotid auscultation. No peripheral edema or cyanosis. Lungs: Symmetric with good expansion. Chest and back non-tender. Breath sounds vesicular without crackles, wheezing or rhonchi Abdomen: mild tender, Non-distended, Normal Reactive Bowel Sounds, negative lara's sign Neuro: Alert, cooperative, oriented to person, place, and time. Speech clear. CN grossly intact. Upper motor strength 5/5 and Lower motor strength 5/5. Sensation intact. Results Labs 02/14/25 05:24 02/14/25 05:24 Labs: Short CBC 02/14/25 Range/Units 05:24 WBC 17.8 H D (3.8-10.6) Thou/mm3 Hgb 9.8 L (13.5-16.0) g/dL Hct 26.8 L (41.0-53.0) % Plt Count 157 D (140-440) Thou/mm3 BMP 02/14/25 05:24 Sodium 126 L Potassium 3.6 Chloride 90 L Carbon Dioxide 18.4 L BUN 149 H* Creatinine 23.2 H* Glucose 112 H D Calcium 7.2 L Liver Function 02/14/25 Range/Units 05:24 Total Bilirubin 0.2 L (0.3-1.2) mg/dL AST < 10 (0-34) U/L ALT 10 (10-49) U/L Alkaline Phosphatase 99 (46-116) U/L Albumin 3.1 L (3.5-5.0) gm/dL ABG Interpretation ABG results: 02/12/25 02/13/25 17:19 08:55 ABG pH 7.25 L ABG pCO2 35 ABG pO2 57 L* ABG HCO3 15 L ABG O2 Saturation 83 L ABG Base Excess -11 L VBG pH 7.40 VBG pCO2 26 L VBG pO2 78 H VBG Base Excess -7 L Assessment & Plan Assessment and plan (1) ESRD (end stage renal disease): Status: Acute Assessment and plan: c/w PD PD working well PD fluid cell count is normal (2) Peritoneal dialysis catheter in place: Status: Acute
--- NOTE | 2025-02-14 12:40 | PC.SS ---
Rounding: Pt is pending AFBs and Quantiferon
--- NOTE | 2025-02-14 15:57 | ESPR_ITS ---
Documentation for date of: 02/14/25 Subjective Subjective Interval history: No ovenight events. Patient dened chills or pyrexia overnight. Patinet denied abdominal pain. Peritoneal dialysate flulid recieved for culture. Patinet continues to tolerate PD dialysis, completed entire session this morning. Continue in isolation given cavitary lesions. Pending QFT and AFB cutlures. Continue antibiotics. Exam Vital Signs Temp Pulse Resp BP Pulse Ox O2 Del Method O2 Flow Rate 97.8 F 92 14 153/90 H 97 Room Air 3 02/14/25 12:00 02/14/25 12:00 02/14/25 12:02/14/25 12:00 02/14/25 12:00 02/14/25 12:00 02/13/25 21:41 FiO2 85 02/13/25 19:20 Narrative Exam General Appearance: Alert & Oriented X3, well-nourished male who is lying in bed comfortably HEENT: Skull symmetrical and atraumatic. Conjunctivae pin and moist. Pupils equal, round, reactive to light and accommodation (PERRL). External ear without lesion or discharge. Straight, nares patient, mucosa pink, no discharge. No thyroid nodule appreciated. No cervical lymphadenopathy. Cardio: Normal Rate and Rhythm with S1 and S2 heart sounds. No murmurs or extra heart sounds auscultated. No bruits on carotid auscultation. No peripheral edema or cyanosis. Lungs: Symmetric with good expansion. Chest and back non-tender. Breath sounds vesicular without crackles, wheezing or rhonchi Abdomen: mild tender, Non-distended, Normal Reactive Bowel Sounds, negative lara's sign Neuro: Alert, cooperative, oriented to person, place, and time. Speech clear. CN grossly intact. Upper motor strength 5/5 and Lower motor strength 5/5. Sensation intact. Objective Labs 02/14/25 05:24 02/14/25 05:24 Labs: Laboratory Results - last 24 hr 02/12/25 02/13/25 02/13/25 17:14 22:10 22:10 WBC RBC Hgb Hct MCV MCH MCHC RDW Std Deviation Plt Count Neut % (Auto) Lymph % (Auto) [place] % (Auto) Eos % (Auto) Baso % (Auto) Neut # (Auto) Lymph # (Auto) [place] # (Auto) Eos # (Auto) Baso # (Auto) Immature Gran # (Auto) Absolute Nucleated RBC Immature Gran % Nucleated RBC % Sodium Potassium Chloride Carbon Dioxide Anion Gap BUN Creatinine Estim Creat Clear Calc eGFR BUN/Creatinine Ratio Glucose Estimated Ave Glu mg/dL Hemoglobin A1c Calculated Osmolality Calcium Corrected Calcium Phosphorus Magnesium Total Bilirubin AST ALT Alkaline Phosphatase Total Protein Albumin Globulin Albumin/Globulin Ratio Urine Total Volume 680 680 Ur Sodium mmol/L 45 Ur Sodium 24 Hour 31 L Ur Potassium mmol/L 19 Ur Potassium 24 Hour 13 L Ur Chloride mmol/L Ur Chloride 24 Hour Peritoneal Color Peritoneal Appearance Peritoneal WBC Peritoneal RBC Periton Polynucl WBCs Periton Mononucl WBCs Peritoneal Tot Protein Peritoneal Albumin Peritoneal LDH Peritoneal Glucose Peritoneal Amylase Coccidioides IgG Ab Negative 02/13/25 02/14/25 02/14/25 22:10 05:24 09:50 WBC 17.8 H D RBC 3.53 L Hgb 9.8 L Hct 26.8 L MCV 76 L MCH 27.8 MCHC 36.6 RDW Std Deviation 36.7 Plt Count 157 D Neut % (Auto) 84 H Lymph % (Auto) 2 L [place] % (Auto) 10 Eos % (Auto) 2 Baso % (Auto) 0 Neut # (Auto) 15.0 H Lymph # (Auto) 0.4 L [place] # (Auto) 1.8 H Eos # (Auto) 0.4 Baso # (Auto) 0.0 Immature Gran # (Auto) 0.19 H Absolute Nucleated RBC 0.00 Immature Gran % 1 H Nucleated RBC % 0 Sodium 126 L Potassium 3.6 Chloride 90 L Carbon Dioxide 18.4 L Anion Gap 18 H BUN 149 H* Creatinine 23.2 H* Estim Creat Clear Calc 5.5 L eGFR 2 L* BUN/Creatinine Ratio 6 L Glucose [address] Glu mg/dL 103 Hemoglobin A1c 5.2 Calculated Osmolality 303 H Calcium 7.2 L Corrected Calcium 7.9 L Phosphorus 10.2 H Magnesium 1.7 Total Bilirubin 0.2 L AST < 10 ALT 10 Alkaline Phosphatase 99 Total Protein 5.7 Albumin 3.1 L Globulin 2.6 Albumin/Globulin Ratio 1.2 Urine Total Volume 680 Ur Sodium mmol/L Ur Sodium 24 Hour Ur Potassium mmol/L Ur Potassium 24 Hour Ur Chloride mmol/L 38.3 L Ur Chloride 24 Hour 26 L Peritoneal Color Straw Peritoneal Appearance Clear Peritoneal WBC 85 Peritoneal RBC 26 Periton Polynucl WBCs 73 Periton Mononucl WBCs 27 Peritoneal Tot Protein < 2 Peritoneal Albumin < 1.0 Peritoneal LDH < 14 Peritoneal Glucose 1038 Peritoneal Amylase < 20 Coccidioides IgG Ab ABG Interpretation ABG results: 02/12/25 02/13/25 17:19 08:55 ABG pH 7.25 L ABG pCO2 35 ABG pO2 57 L* ABG HCO3 15 L ABG O2 Saturation 83 L ABG Base Excess -11 L VBG pH 7.40 VBG pCO2 26 L VBG pO2 78 H VBG Base Excess -7 L Quality Measures Quality Measures none Assessment & Plan Assessment Current Active Medications: Generic Name Dose Route Start Last Admin Trade Name Freq PRN Reason Stop Dose Admin Acetaminophen 650 mg 02/12/25 15:50 Acetaminophen 325 Mg Tablet PO 03/14/25 15:49 Q6H PRN Mild Pain 1-3 or Fever >100.3 Amlodipine Besylate 5 mg 02/13/25 21:00 02/13/25 22:14 Amlodipine Besylate 5 Mg Tablet PO 03/15/25 20:59 5 mg HS BONNIE Administration Guaifenesin/Dextromethorphan 1 each 02/13/25 02:44 Guaifenesin/Dm Tablet PO 03/15/25 02:43 Q8H PRN COUGH Piperacillin/Tazobactam/Dextrose 3.375 gm in 50 mls @ 12.5 mls/hr 02/12/25 22:00 02/14/25 08:47 Zosyn IV 02/19/25 21:59 12.5 mls/hr Q12HR BONNIE Administration Ondansetron HCl 4 mg 02/12/25 15:50 Ondansetron Inj 2 Mg/Ml Inj 2 Ml IV 03/14/25 15:49 Q6H PRN NAUSEA OR VOMITING Protocol Pantoprazole Sodium 40 mg 02/12/25 21:15 02/14/25 08:46 Pantoprazole Inj 40 Mg Vial IVP 03/14/25 21:14 40 mg BID BONNIE Administration Sennosides 1 tab 02/12/25 15:50 Senna Tablet PO 03/14/25 15:49 QDAY PRN constipation Protocol Sevelamer Carbonate 800 mg 02/13/25 08:00 02/14/25 13:19 Sevelamer Carbonate 800 Mg Tablet PO 03/15/25 07:59 800 mg TIDWM BONNIE Administration Sodium Bicarbonate 650 mg 02/13/25 21:00 02/14/25 08:46 Sodium Bicarbonate 650 Mg Tablet PO 03/15/25 20:59 650 mg BID BONNIE Administration Plan #Sepsis secondary to pneumonia, with cavitary lesion, improving #Hemoptysis #Cavitary lesion #Leukocytosis, improving Patient arrived to the emergency room with a chief complaint of hemoptysis and hematemesis with chills and subjective fevers at home with a chest x-ray showing dense consolidation in the mid lung, thus pneumonia can not be ruled out. Meeting sepsis criteria given SOFA of 4 with end organ damage from kidneys'. Consider TB Vs Cocci. Intraabdominal infection can not be ruled out given PD, less likely as peritoneal fluid WBC 85 & polynucl WBC 73-->thus less than 250. Although less likely, autoimmune process can not be ruled out given patient's young age and history of ESRD with bilateral atrophic kidneys, such as granulomatosis with polyangiitis given lung, kidney, and dysphagia complain. Pending records. Diagnostics: CT chest thick walled cavitary lesion in the right upper lobe contiguous w/ mediastium milder nodular parnchymal disease in right lmiddle lobe CT Abdomen: CT Abdomen/Pelvis noted to have 5 mm thick walled cavitary lesion in the right lung, gastritis pattern, suspected primary hepatocellular disease . Peritoneael dialysis cathete with free fluid in the abdomen and mild ascites Procalcitionin 1.70 Peritoneal fluid within normal range. WBC 85, Polynucl WBC 73 SOFA 4 Plan -Isolation Precautions -Zosyn (02/12/2025) -Protonix 40 mg BID -Blood Cultures, sputum, and urine culture, peritoneal culture -AFB cultures, QTF Gold -Consult infectious Disease, Dr. Cervantes, appreciate recommendtions. #Esophageal Stenosis s/p dilation #Dysphagia Patient is complaining of dyspahgia with food, denied pain, denied regurgitation of food. Dysphagia maybe secondary to hematemsis. Mechanical causes versus motility can not be ruled out. CT soft tissue (01/28/2025): Nonspecific carotid triangle lymphadenopathy and Significant left maxillary sinus disease Plan -Advance diet-->regular -Consult GI, Dr. Hinton, appreciate recommendations. #Metabolic Acidosis, anion gap, improving #Uremic #Hypocholoremia #Hypocalcemia Patient arrived with metabolic acidosis with bicarb of 14.7, anion gap of 15. Metabolic acidosis likely secondary to uremia given elevated BUN of 154. Less likley secondary to lactic acidosis given Lactic acid of 0.4. No history of diabetes, less likely secondary to DKA, no ketones noted in the urine. Nephrology consulted, patient follows Dr. Acosta. Plan -Sodium Bicarbonate 650 mg PO BID -Treat underlying cause of uremia -Dialysis to correct electrolytes #Isosmotic Hyponatremic, isovolemic , improving Patient presented with hyponatremia of 116, with osmolarity within normal range, and does not appear hypovolemic, thus consider isosmotic hyponatremia secondary to uremia vs worsening ESRD given noncompliance of PD dialysis. Na deficit 1334 plan -Fluid restriction 1000 Liters -dialysis #ESRD on Peritoneal dialysis #hyperphosphatemia #hx of Glomerulonephritis Patient stated he is compliant with PD dialysis at home every night. Patient denied any discharge form line or infectious process noted coming form line. No animal at home. Plan -PD dialysis -Sevelamer Carbonate TIDWM -Nephrology consult -renally dose medication -avoid nephrotoxins -consult nephrology, Dr. Acosta, appreciate recommendations. #Microcytic Anemia #Acute Blood Loss Anemia noted on labs with hgb of 8.6, hct of 14.7, and MCV of 75, no previous CBC on file. Given recent hemoptysis and hemetemsis, acute blood loss can not be ruled out vs iron deficiency vs chronic disease given 3 year history of ESRD. Plan -continue to monitor hgb and hct -transfuse <7 hgb #Hypertension Holding Amlodipine, given patient will likely develop hypotension during PD dialysis. Plan -Amlodipine 10 mg HS -revevaluate after dialysis #Back Pain Patient complaining of back pain that developed acutely within the last two days. Denied flank pain. No calculi noted on imagining. Denied UTI sympotms. Plan -Tylenol -Consider Dilaudid 0.5 X 1 #Mild Fluid Subscapular to liver Health Maintenance: Disp: Pt is currently admitted to floors for further management of sepsis in the setting of organ dysfunction, awaiting dialysis, cultures, AFB, and QFT and EGD tonight FEN: Regular diet DVT: compression device Code: Full code - The patient's plan was discussed with attending Dr. George Andrews MD PGY1 Internal Medicine Attending Provider Attestation/Addendum I reviewed labs, imaging, EKG, home medications and prior available records. Face to face evaluation was performed by me. I have personally examined the patient and discussed assessment and plan with the IM team. I reviewed the resident note and agree with the plan with exceptions as below. Cavitary lung lesion ESRD on peritoneal dialysis Low back pain Hyponatremia Leukocytosis Dysphagia Hematemesis Possible hemoptysis Continue IV Zosyn Sent blood cultures Trend WBC: Downtrending Diagnostic paracentesis ordered Consulted nephrology for peritoneal dialysis Monitor sodium level: Improved. Avoid rapid correction. Nephrology consulted. Continue sodium bicarbonate Consulted GI given the reported hemoptysis and dysphagia for possible EGD: That showed esophagitis and esophageal stricture s/p dilation. Advanced diet Sent AFBs and QuantiFERON. Consult ID. Cocci IgM is negative. Cocci IgG is pending.
[2025-02-14] MEDS: amLODIPine BESYLATE 5 MG TABLET 10 MG PO (20:10)
[2025-02-14] MEDS: HYDROcodone/APAP 5/325 TABLET 1 TAB PO (20:47)
--- NOTE | 2025-02-14 20:50 | ESPR_ITS ---
Documentation for date of: 02/14/25 Subjective Subjective Interval history: Some improvement after endoscopic dilatation of the proximal esophageal stricture Biopsies pending Exam Vital Signs Temp Pulse Resp BP Pulse Ox O2 Del Method O2 Flow Rate 98.1 F 88 18 147/76 H 94 L Room Air 3 02/14/25 19:59 02/14/25 20:10 02/14/25 19:59 02/14/25 20:10 02/14/25 16:00 02/14/25 16:00 02/13/25 21:41 FiO2 85 02/13/25 19:20 Objective Labs 02/14/25 05:24 02/14/25 05:24 Labs: Laboratory Results - last 24 hr 02/12/25 02/13/25 02/13/25 17:14 22:10 22:10 WBC RBC Hgb Hct MCV MCH MCHC RDW Std Deviation Plt Count Neut % (Auto) Lymph % (Auto) [place] % (Auto) Eos % (Auto) Baso % (Auto) Neut # (Auto) Lymph # (Auto) [place] # (Auto) Eos # (Auto) Baso # (Auto) Immature Gran # (Auto) Absolute Nucleated RBC Immature Gran % Nucleated RBC % Sodium Potassium Chloride Carbon Dioxide Anion Gap BUN Creatinine Estim Creat Clear Calc eGFR BUN/Creatinine Ratio Glucose Estimated Ave Glu mg/dL Hemoglobin A1c Calculated Osmolality Calcium Corrected Calcium Phosphorus Magnesium Total Bilirubin AST ALT Alkaline Phosphatase Total Protein Albumin Globulin Albumin/Globulin Ratio Urine Total Volume 680 680 Ur Sodium mmol/L 45 Ur Sodium 24 Hour 31 L Ur Potassium mmol/L 19 Ur Potassium 24 Hour 13 L Ur Chloride mmol/L Ur Chloride 24 Hour Peritoneal Color Peritoneal Appearance Peritoneal WBC Peritoneal RBC Periton Polynucl WBCs Periton Mononucl WBCs Peritoneal Tot Protein Peritoneal Albumin Peritoneal LDH Peritoneal Glucose Peritoneal Amylase Coccidioides IgG Ab Negative 02/13/25 02/14/25 02/14/25 22:10 05:24 09:50 WBC 17.8 H D RBC 3.53 L Hgb 9.8 L Hct 26.8 L MCV 76 L MCH 27.8 MCHC 36.6 RDW Std Deviation 36.7 Plt Count 157 D Neut % (Auto) 84 H Lymph % (Auto) 2 L [place] % (Auto) 10 Eos % (Auto) 2 Baso % (Auto) 0 Neut # (Auto) 15.0 H Lymph # (Auto) 0.4 L [place] # (Auto) 1.8 H Eos # (Auto) 0.4 Baso # (Auto) 0.0 Immature Gran # (Auto) 0.19 H Absolute Nucleated RBC 0.00 Immature Gran % 1 H Nucleated RBC % 0 Sodium 126 L Potassium 3.6 Chloride 90 L Carbon Dioxide 18.4 L Anion Gap 18 H BUN 149 H* Creatinine 23.2 H* Estim Creat Clear Calc 5.5 L eGFR 2 L* BUN/Creatinine Ratio 6 L Glucose [address] Glu mg/dL 103 Hemoglobin A1c 5.2 Calculated Osmolality 303 H Calcium 7.2 L Corrected Calcium 7.9 L Phosphorus 10.2 H Magnesium 1.7 Total Bilirubin 0.2 L AST < 10 ALT 10 Alkaline Phosphatase 99 Total Protein 5.7 Albumin 3.1 L Globulin 2.6 Albumin/Globulin Ratio 1.2 Urine Total Volume 680 Ur Sodium mmol/L Ur Sodium 24 Hour Ur Potassium mmol/L Ur Potassium 24 Hour Ur Chloride mmol/L 38.3 L Ur Chloride 24 Hour 26 L Peritoneal Color Straw Peritoneal Appearance Clear Peritoneal WBC 85 Peritoneal RBC 26 Periton Polynucl WBCs 73 Periton Mononucl WBCs 27 Peritoneal Tot Protein < 2 Peritoneal Albumin < 1.0 Peritoneal LDH < 14 Peritoneal Glucose 1038 Peritoneal Amylase < 20 Coccidioides IgG Ab Impressions Impression: Proximal esophageal status post endoscopic dilatation Biopsies pending Continue current management ABG Interpretation ABG results: 02/12/25 02/13/25 17:19 08:55 ABG pH 7.25 L ABG pCO2 35 ABG pO2 57 L* ABG HCO3 15 L ABG O2 Saturation 83 L ABG Base Excess -11 L VBG pH 7.40 VBG pCO2 26 L VBG pO2 78 H VBG Base Excess -7 L Assessment & Plan A&P Narrative # Progressive dysphagia Plan Fiberoptic esophagogastroduodenoscopy with possible therapeutic intervention possible biopsy under intravenous moderate sedation scheduled for tomorrow consent obtained N.p.o. except meds Other medical problems include CKD on peritoneal dialysis Bilateral flank pain Fever Cavitary lesion lung Thank you very much for the opportunity to participate in the care of this patient Time Spent With Patient Time: Total time spent is greater than 50% in coordination of care (as documented) at patient's floor/unit and/or counseling patient:
[2025-02-15] VITALS (11 sets, daily range): BP systolic 135–161; BP diastolic 79–96; PULSE 78–92; RESP 16–95; TEMP 36.4–37.3; O2SAT 93–96; BMI 37.5
--- NOTE | 2025-02-15 04:43 | PC.NURSE ---
spoke with Dr. Starkey about order for vanco in the peritoneal dialysis catheter. I let him know that rn's do not handle that and dialysis nurse would. He said to leave the order as is and pass on to dialysis nurse.
[2025-02-15 06:01] LABS: Basophils % (Auto) 0 % (0-2.5); Eosinophils # (Auto) 0.5 Thou/mm3 (0.0-0.5); Eosinophils % (Auto) 3 % (0-10); Hematocrit 26.9 % (41.0-53.0); Hemoglobin 9.8 g/dL (13.5-16.0); Immature Granulocytes % (Auto) 1 % (0-0); Immature Granulocytes Auto 0.12 Thou/mm3 (0.00-0.00); Lymphocytes # (Auto) 0.6 Thou/mm3 (1.0-4.8); Lymphocytes % (Auto) 3 % (10-50); Mean Corpuscular HGB Conc 36.4 g/dl (31.0-37.0); Mean Corpuscular Hemoglobin 27.6 pg (25.0-35.0); Mean Corpuscular Volume 76 fL (80-100); Monocytes # (Auto) 1.5 Thou/mm3 (0.0-0.8); Monocytes % (Auto) 9 % (0-12); Neutrophils # (Auto) 13.6 Thou/mm3 (1.8-7.7); Neutrophils % (Auto) 83 % (37-80); Nucleated Red Blood Cell % 0 /100 WBC (0); Platelet Count 158 Thou/mm3 (140-440); RDW Standard Deviation 36.1 fL (35.1-43.9); Red Blood Count 3.55 Miln/mm3 (4.50-5.90); White Blood Count 16.3 Thou/mm3 (3.8-10.6)
[2025-02-15 07:08] LABS: Albumin, Serum 3.2 gm/dL (3.5-5.0); Albumin/Globulin Ratio 1.2 (1.2-2.2); Alkaline Phosphatase 99 U/L (46-116); Anion Gap 15 (7-16); Aspartate Amino Transferase 10 U/L (0-34); BUN/Creatinine Ratio 6 Ratio (12-20); Bilirubin,Total 0.2 mg/dL (0.3-1.2); Calcium 7.3 mg/dL (8.3-10.6); Calcium (Corrected) 7.9 mg/dL (8.5-10.1); Carbon Dioxide 20.9 mMol/L (20.0-31.0); Chloride 91 mMol/L (98-107); Estimated Creatinine Clearance 5.8 mL/min (>60); Globulin 2.6 gm/dL (2.3-3.5); Glucose 130 mg/dL (74-106); Magnesium 1.7 mg/dL (1.6-2.6); Osmolality,Calculated 299 (275-295); Potassium 3.4 mMol/L (3.4-5.1); Sodium 127 mMol/L (136-145); Total Protein 5.8 gm/dL (5.7-8.2); eGFR 3 See Note
[2025-02-15 07:09] LABS: Blood Urea Nitrogen 132 mg/dL (9-23); Creatinine (Component) 21.6 mg/dL (0.6-1.3)
[2025-02-15 07:13] LABS: Alanine Aminotransferase 8 U/L (10-49)
[2025-02-15] MEDS: ACETAMINOPHEN 325 MG TABLET 650 MG PO ×2 (08:51→19:43)
[2025-02-15] MEDS: PANTOPRAZOLE INJ 40 MG VIAL IVP ×2 (08:51→20:37)
[2025-02-15] MEDS: PIPER/TAZO 3.375 GM PREMIX 3.375 GM/50 ML BAG IV (08:51)
[2025-02-15] MEDS: SODIUM BICARBONATE 650 MG TABLET PO ×2 (08:52→20:37)
[2025-02-15] MEDS: SEVELAMER CARBONATE 800 MG TABLET PO ×3 (08:52→17:47)
[2025-02-15] MEDS: ONDANSETRON INJ 2 MG/ML INJ 2 ML 4 MG IV (09:01)
--- NOTE | 2025-02-15 09:17 | PD.IDPROG ---
Subjective Subjective Interval history: clinically improved. cocci neg locally both IgG and IgM. process not acute, Exam Vital Signs Temp Pulse Resp BP Pulse Ox O2 Del Method O2 Flow Rate 98.3 F 89 19 140/80 H 93 L Room Air 3 02/15/25 08:00 02/15/25 08:00 02/15/25 08:00 02/15/25 08:00 02/15/25 08:00 02/15/25 08:00 02/13/25 21:41 FiO2 85 02/13/25 19:20 Objective - Internal Medicine Labs 02/15/25 04:19 02/15/25 04:19 Labs: Laboratory Results - last 24 hr 02/12/25 02/12/25 02/13/25 17:14 18:20 02:30 WBC RBC Hgb Hct MCV MCH MCHC RDW Std Deviation Plt Count Neut % (Auto) Lymph % (Auto) [place] % (Auto) Eos % (Auto) Baso % (Auto) Neut # (Auto) Lymph # (Auto) [place] # (Auto) Eos # (Auto) Baso # (Auto) Immature Gran # (Auto) Absolute Nucleated RBC Immature Gran % Nucleated RBC % Sodium Potassium Chloride Carbon Dioxide Anion Gap BUN Creatinine Estim Creat Clear Calc eGFR BUN/Creatinine Ratio Glucose Calculated Osmolality Calcium Corrected Calcium Phosphorus Magnesium Total Bilirubin AST ALT Alkaline Phosphatase Total Protein Albumin Globulin Albumin/Globulin Ratio Peritoneal Color Peritoneal Appearance Peritoneal WBC Peritoneal RBC Periton Polynucl WBCs Periton Mononucl WBCs Peritoneal Tot Protein Peritoneal Albumin Peritoneal LDH Peritoneal Glucose Peritoneal Amylase Coccidioides IgG Ab Negative Mycobacterial Culture See Jun Rpt See Jun Rpt 02/13/25 02/14/25 02/15/25 10:28 09:50 04:19 WBC 16.3 H RBC 3.55 L Hgb 9.8 L Hct 26.9 L MCV 76 L MCH 27.6 MCHC 36.4 RDW Std Deviation 36.1 Plt Count 158 Neut % (Auto) 83 H Lymph % (Auto) 3 L [place] % (Auto) 9 Eos % (Auto) 3 Baso % (Auto) 0 Neut # (Auto) 13.6 H Lymph # (Auto) 0.6 L [place] # (Auto) 1.5 H Eos # (Auto) 0.5 Baso # (Auto) 0.0 Immature Gran # (Auto) 0.12 H Absolute Nucleated RBC 0.00 Immature Gran % 1 H Nucleated RBC % 0 Sodium 127 L Potassium 3.4 Chloride 91 L Carbon Dioxide 20.9 Anion Gap 15 BUN 132 H* Creatinine 21.6 H* D Estim Creat Clear Calc 5.8 L eGFR 3 L* BUN/Creatinine Ratio 6 L Glucose 130 H Calculated Osmolality 299 H Calcium 7.3 L Corrected Calcium 7.9 L Phosphorus 10.0 H Magnesium 1.7 Total Bilirubin 0.2 L AST 10 ALT 8 L Alkaline Phosphatase 99 Total Protein 5.8 Albumin 3.2 L Globulin 2.6 Albumin/Globulin Ratio 1.2 Peritoneal Color Straw Peritoneal Appearance Clear Peritoneal WBC 85 Peritoneal RBC 26 Periton Polynucl WBCs 73 Periton Mononucl WBCs 27 Peritoneal Tot Protein < 2 Peritoneal Albumin < 1.0 Peritoneal LDH < 14 Peritoneal Glucose 1038 Peritoneal Amylase < 20 Coccidioides IgG Ab Mycobacterial Culture See Sep Rpt ABG Interpretation ABG results: 02/12/25 02/13/25 17:19 08:55 ABG pH 7.25 L ABG pCO2 35 ABG pO2 57 L* ABG HCO3 15 L ABG O2 Saturation 83 L ABG Base Excess -11 L VBG pH 7.40 VBG pCO2 26 L VBG pO2 78 H VBG Base Excess -7 L Assessment & Plan A&P Narrative cavitary pulm process hemoptysis vs hematemesis sputum stain with mostly epi's but cx noted. changed empiric zosyn to po cefuroxime. note the mild chf on echo. will check in tuesday if still here. AFB's are neg x 3, so no overt value to isolation. f/u with others. I can not see him in clinic Time Spent With Patient Time: Total time spent is greater than 50% in coordination of care (as documented) at patient's floor/unit and/or counseling patient:
[2025-02-15] MEDS: POTASSIUM CHLORIDE 20 mEq TABCR PO (09:34)
--- NOTE | 2025-02-15 10:41 | ESPR_ITS ---
Documentation for date of: 02/15/25 Subjective Subjective Interval history: Overnight, peritoneal culture positive for GPC. Fevers overnight. One bowel movemetn recored for 02/14/2025. Patient continues to complain of dyspahgai despite with food. Denied pain with swallowing. Zosyn discontinued and started on Cefuroxime orally. Exam Vital Signs Temp Pulse Resp BP Pulse Ox O2 Del Method O2 Flow Rate 98.3 F 87 19 140/80 H 93 L Room Air 3 02/15/25 08:00 02/15/25 09:37 02/15/25 09:37 02/15/25 08:00 02/15/25 08:00 02/15/25 08:00 02/13/25 21:41 FiO2 85 02/13/25 19:20 Narrative Exam General Appearance: Alert & Oriented X3, well-nourished male who is lying in bed comfortably HEENT: Skull symmetrical and atraumatic. Conjunctivae pin and moist. Pupils equal, round, reactive to light and accommodation (PERRL). External ear without lesion or discharge. Straight, nares patient, mucosa pink, no discharge. No thyroid nodule appreciated. No cervical lymphadenopathy. Cardio: Normal Rate and Rhythm with S1 and S2 heart sounds. No murmurs or extra heart sounds auscultated. No bruits on carotid auscultation. No peripheral edema or cyanosis. Lungs: Symmetric with good expansion. Chest and back non-tender. Breath sounds vesicular without crackles, wheezing or rhonchi Abdomen: mild tender, Non-distended, Normal Reactive Bowel Sounds, negative lara's sign Neuro: Alert, cooperative, oriented to person, place, and time. Speech clear. CN grossly intact. Upper motor strength 5/5 and Lower motor strength 5/5. Sensation intact. Objective Labs 02/15/25 04:19 02/15/25 04:19 Labs: Laboratory Results - last 24 hr 02/12/25 02/12/25 02/13/25 17:14 18:20 02:30 WBC RBC Hgb Hct MCV MCH MCHC RDW Std Deviation Plt Count Neut % (Auto) Lymph % (Auto) [place] % (Auto) Eos % (Auto) Baso % (Auto) Neut # (Auto) Lymph # (Auto) [place] # (Auto) Eos # (Auto) Baso # (Auto) Immature Gran # (Auto) Absolute Nucleated RBC Immature Gran % Nucleated RBC % Sodium Potassium Chloride Carbon Dioxide Anion Gap BUN Creatinine Estim Creat Clear Calc eGFR BUN/Creatinine Ratio Glucose Calculated Osmolality Calcium Corrected Calcium Phosphorus Magnesium Total Bilirubin AST ALT Alkaline Phosphatase Total Protein Albumin Globulin Albumin/Globulin Ratio Peritoneal Color Peritoneal Appearance Peritoneal WBC Peritoneal RBC Periton Polynucl WBCs Periton Mononucl WBCs Peritoneal Tot Protein Peritoneal Albumin Peritoneal LDH Peritoneal Glucose Peritoneal Amylase Coccidioides IgG Ab Negative Mycobacterial Culture See Sep Rpt See Sep Rpt 02/13/25 02/14/25 02/15/25 10:28 09:50 04:19 WBC 16.3 H RBC 3.55 L Hgb 9.8 L Hct 26.9 L MCV 76 L MCH 27.6 MCHC 36.4 RDW Std Deviation 36.1 Plt Count 158 Neut % (Auto) 83 H Lymph % (Auto) 3 L [place] % (Auto) 9 Eos % (Auto) 3 Baso % (Auto) 0 Neut # (Auto) 13.6 H Lymph # (Auto) 0.6 L [place] # (Auto) 1.5 H Eos # (Auto) 0.5 Baso # (Auto) 0.0 Immature Gran # (Auto) 0.12 H Absolute Nucleated RBC 0.00 Immature Gran % 1 H Nucleated RBC % 0 Sodium 127 L Potassium 3.4 Chloride 91 L Carbon Dioxide 20.9 Anion Gap 15 BUN 132 H* Creatinine 21.6 H* D Estim Creat Clear Calc 5.8 L eGFR 3 L* BUN/Creatinine Ratio 6 L Glucose 130 H Calculated Osmolality 299 H Calcium 7.3 L Corrected Calcium 7.9 L Phosphorus 10.0 H Magnesium 1.7 Total Bilirubin 0.2 L AST 10 ALT 8 L Alkaline Phosphatase 99 Total Protein 5.8 Albumin 3.2 L Globulin 2.6 Albumin/Globulin Ratio 1.2 Peritoneal Color Straw Peritoneal Appearance Clear Peritoneal WBC 85 Peritoneal RBC 26 Periton Polynucl WBCs 73 Periton Mononucl WBCs 27 Peritoneal Tot Protein < 2 Peritoneal Albumin < 1.0 Peritoneal LDH < 14 Peritoneal Glucose 1038 Peritoneal Amylase < 20 Coccidioides IgG Ab Mycobacterial Culture See Sep Rpt ABG Interpretation ABG results: 02/12/25 02/13/25 17:19 08:55 ABG pH 7.25 L ABG pCO2 35 ABG pO2 57 L* ABG HCO3 15 L ABG O2 Saturation 83 L ABG Base Excess -11 L VBG pH 7.40 VBG pCO2 26 L VBG pO2 78 H VBG Base Excess -7 L Quality Measures Quality Measures none Assessment & Plan Assessment Current Active Medications: Generic Name Dose Route Start Last Admin Trade Name Freq PRN Reason Stop Dose Admin Acetaminophen 650 mg 02/12/25 15:50 02/15/25 08:51 Acetaminophen 325 Mg Tablet PO 03/14/25 15:49 650 mg Q6H PRN Administration Mild Pain 1-3 or Fever >100.3 Amlodipine Besylate 10 mg 02/14/25 21:00 02/14/25 20:10 Amlodipine Besylate 5 Mg Tablet PO 03/16/25 20:59 10 mg HS BONNIE Administration Cefuroxime Axetil 250 mg 02/16/25 09:00 Cefuroxime Axetil 250 Mg Tablet PO 02/20/25 12:00 DAILY BONNIE Guaifenesin/Dextromethorphan 1 each 02/13/25 02:44 Guaifenesin/Dm Tablet PO 03/15/25 02:43 Q8H PRN COUGH Ondansetron HCl 4 mg 02/12/25 15:50 02/15/25 09:01 Ondansetron Inj 2 Mg/Ml Inj 2 Ml IV 03/14/25 15:49 4 mg Q6H PRN Administration NAUSEA OR VOMITING Protocol Pantoprazole Sodium 40 mg 02/12/25 21:15 02/15/25 08:51 Pantoprazole Inj 40 Mg Vial IVP 03/14/25 21:14 40 mg BID BONNIE Administration Pregabalin 75 mg 02/15/25 10:45 Pregabalin 75 Mg Capsule PO 03/17/25 10:44 BID BONNIE Sennosides 1 tab 02/12/25 15:50 Senna Tablet PO 03/14/25 15:49 QDAY PRN constipation Protocol Sevelamer Carbonate 800 mg 02/13/25 08:00 02/15/25 08:52 Sevelamer Carbonate 800 Mg Tablet PO 03/15/25 07:59 800 mg TIDWM BONNIE Administration Sodium Bicarbonate 650 mg 02/13/25 21:00 02/15/25 08:52 Sodium Bicarbonate 650 Mg Tablet PO 03/15/25 20:59 650 mg BID BONNIE Administration Plan #Sepsis secondary to pneumonia, with cavitary lesion, improving #Pneumonia, Proteus Mirabilis #Hemoptysis #Cavitary lesion #Leukocytosis, improving Patient arrived to the emergency room with a chief complaint of hemoptysis and hematemesis with chills and subjective fevers at home with a chest x-ray showing dense consolidation in the mid lung, thus pneumonia can not be ruled out. Meeting sepsis criteria given SOFA of 4 with end organ damage from kidneys'. Cocci negative. Pending AFB cultures for TB. Although less likely, autoimmune process can not be ruled out given patient's young age and history of ESRD with bilateral atrophic kidneys, such as granulomatosis with polyangiitis given lung, kidney, and dysphagia complain. Pending records. Diagnostics: CT chest thick walled cavitary lesion in the right upper lobe contiguous w/ mediastium milder nodular parnchymal disease in right lmiddle lobe CT Abdomen: CT Abdomen/Pelvis noted to have 5 mm thick walled cavitary lesion in the right lung, gastritis pattern, suspected primary hepatocellular disease . Peritoneael dialysis cathete with free fluid in the abdomen and mild ascites Procalcitionin 1.70 02/15/2025: AFB smear negative, pending AFB cultures, and ATF Gold, Zosyn (02/12/2025-02/15/2025) SOFA 4 Plan -Isolation Precautions -Cefuroxime 250 mg PO oral (02/15/2025--) -Protonix 40 mg BID -AFB cultures, QTF Gold -Consult infectious Disease, Dr. Cervantes, appreciate recommendations. #Peritoneal GPC Peritoneal fluid showing WBC count of 85, peritoneal polynuclear WBCs 73: Not meeting criteria for peritonitis greater than 250. During morning signout peritoneal culture growing GPC. Given clinical improvement and decreasing leukocytosis, no need for Vancomycin at this moment. Diagnostics: Peritoneal fluid within normal range. WBC 85, Polynucl WBC 73, pending final pertoneal culture showing GPC, holding off vancomycin given down trending WBC Plan -Cefuroxime 250 mg PO oral #Esophageal Stenosis s/p dilation #Dysphagia Patient is complaining of dyspahgia with food, denied pain, denied regurgitation of food. Dysphagia maybe secondary to hematemsis. Mechanical causes versus motility can not be ruled out. CT soft tissue (01/28/2025): Nonspecific carotid triangle lymphadenopathy and Significant left maxillary sinus disease 02/15/2025 patient continues to complain of dysphagia with food, deneid Odynophagia. EGD noted for esophagitis. Please follow outpatient. Plan -regular diet -Consult GI, Dr. Hinton, appreciate recommendations. #Metabolic Acidosis, anion gap, improving #Uremic #Hypocholoremia #Hypocalcemia Patient arrived with metabolic acidosis with bicarb of 14.7, anion gap of 15. Metabolic acidosis likely secondary to uremia given elevated BUN of 154. Less likley secondary to lactic acidosis given Lactic acid of 0.4. No history of diabetes, less likely secondary to DKA, no ketones noted in the urine. Nephrology consulted, patient follows Dr. Acosta. Plan -Sodium Bicarbonate 650 mg PO BID -Treat underlying cause of uremia -Dialysis to correct electrolytes #Isosmotic Hyponatremic, isovolemic , improving Patient presented with hyponatremia of 116, with osmolarity within normal range, and does not appear hypovolemic, thus consider isosmotic hyponatremia secondary to uremia vs worsening ESRD given noncompliance of PD dialysis. Na deficit 1334 plan -Fluid restriction 1000 Liters -dialysis #ESRD on Peritoneal dialysis #hyperphosphatemia #hx of Glomerulonephritis Patient stated he is compliant with PD dialysis at home every night. Patient denied any discharge form line or infectious process noted coming form line. No animal at home. Plan -PD dialysis -Sevelamer Carbonate TIDWM -Nephrology consult -renally dose medication -avoid nephrotoxins -consult nephrology, Dr. Acosta, appreciate recommendations. #Microcytic Anemia #Acute Blood Loss Anemia noted on labs with hgb of 8.6, hct of 14.7, and MCV of 75, no previous CBC on file. Given recent hemoptysis and hemetemsis, acute blood loss can not be ruled out vs iron deficiency vs chronic disease given 3 year history of ESRD. Plan -continue to monitor hgb and hct -transfuse <7 hgb #Hypertension Holding Amlodipine, given patient will likely develop hypotension during PD dialysis. Plan -Amlodipine 10 mg HS -revevaluate after dialysis #Back Pain Patient complaining of back pain that developed acutely within the last two days. Denied flank pain. No calculi noted on imagining. Denied UTI sympotms. Plan -Pregabalin 75 mg BID -Tylenol -Consider Dilaudid 0.5 X 1 #Mild Fluid Subscapular to liver Health Maintenance: Disp: Pt is currently admitted to floors for further management of sepsis in the setting of organ dysfunction, AFB cultures and QFT results. FEN: Regular diet DVT: compression device Code: Full code - The patient's plan was discussed with attending Dr. George Andrews MD PGY1 Internal Medicine Attending Provider Attestation/Addendum Attending Provider Attestation/Addendum I reviewed labs, imaging, EKG, home medications and prior available records. Face to face evaluation was performed by me. I have personally examined the patient and discussed assessment and plan with the IM team. I reviewed the resident note and agree with the plan with exceptions as below. Cavitary lung lesion ESRD on peritoneal dialysis Low back pain Hyponatremia Leukocytosis Dysphagia Hematemesis Possible hemoptysis Continue IV Zosyn Sent blood cultures: Negative to date Sputum cultures grew Proteus Trend WBC: Downtrending Diagnostic paracentesis ordered. Preliminary results showed gram-positive cocci but no significant WBC. Continue Zosyn. Follow-up identification. Consulted nephrology for peritoneal dialysis which was started Monitor sodium level: Improved. Avoid rapid correction. Nephrology consulted. Continue sodium bicarbonate Consulted GI given the reported hemoptysis and dysphagia for possible EGD: That showed esophagitis and esophageal stricture s/p dilation. Advanced diet Sent AFBs and QuantiFERON. Consulted ID. Cocci IgM is negative. Cocci IgG is negative.
[2025-02-15] MEDS: PREGABALIN 75 MG CAPSULE PO ×2 (12:14→20:37)
--- NOTE | 2025-02-15 16:42 | PC.NURSE ---
patient's o2 sats went as low as low 80's when patient is sleeping, called and made aware.
--- NOTE | 2025-02-15 19:40 | PD.IMPROG ---
Documentation for date of: 02/15/25 Subjective Subjective Interval history: Dysphagia tremendously improved after endoscopic dilatation Exam Vital Signs Temp Pulse Resp BP Pulse Ox O2 Del Method O2 Flow Rate 98.4 F 84 16 135/79 H 94 L Room Air 3 02/15/25 16:00 02/15/25 16:00 02/15/25 16:00 02/15/25 16:00 02/15/25 16:00 02/15/25 16:00 02/13/25 21:41 FiO2 85 02/13/25 19:20 Objective Labs 02/15/25 04:19 02/15/25 04:19 Labs: Laboratory Results - last 24 hr 02/12/25 02/13/25 02/13/25 18:20 02:30 10:28 WBC RBC Hgb Hct MCV MCH MCHC RDW Std Deviation Plt Count Neut % (Auto) Lymph % (Auto) [place] % (Auto) Eos % (Auto) Baso % (Auto) Neut # (Auto) Lymph # (Auto) [place] # (Auto) Eos # (Auto) Baso # (Auto) Immature Gran # (Auto) Absolute Nucleated RBC Immature Gran % Nucleated RBC % Sodium Potassium Chloride Carbon Dioxide Anion Gap BUN Creatinine Estim Creat Clear Calc eGFR BUN/Creatinine Ratio Glucose Calculated Osmolality Calcium Corrected Calcium Phosphorus Magnesium Total Bilirubin AST ALT Alkaline Phosphatase Total Protein Albumin Globulin Albumin/Globulin Ratio Mycobacterial Culture See Jun Rpt See Jun Rpt See Jun Rpt 02/15/25 04:19 WBC 16.3 H RBC 3.55 L Hgb 9.8 L Hct 26.9 L MCV 76 L MCH 27.6 MCHC 36.4 RDW Std Deviation 36.1 Plt Count 158 Neut % (Auto) 83 H Lymph % (Auto) 3 L [place] % (Auto) 9 Eos % (Auto) 3 Baso % (Auto) 0 Neut # (Auto) 13.6 H Lymph # (Auto) 0.6 L [place] # (Auto) 1.5 H Eos # (Auto) 0.5 Baso # (Auto) 0.0 Immature Gran # (Auto) 0.12 H Absolute Nucleated RBC 0.00 Immature Gran % 1 H Nucleated RBC % 0 Sodium 127 L Potassium 3.4 Chloride 91 L Carbon Dioxide 20.9 Anion Gap 15 BUN 132 H* Creatinine 21.6 H* D Estim Creat Clear Calc 5.8 L eGFR 3 L* BUN/Creatinine Ratio 6 L Glucose 130 H Calculated Osmolality 299 H Calcium 7.3 L Corrected Calcium 7.9 L Phosphorus 10.0 H Magnesium 1.7 Total Bilirubin 0.2 L AST 10 ALT 8 L Alkaline Phosphatase 99 Total Protein 5.8 Albumin 3.2 L Globulin 2.6 Albumin/Globulin Ratio 1.2 Mycobacterial Culture Impressions Impression: Proximal esophageal stricture status post endoscopic guidewire savory dilatation Improved dysphagia after endoscopic dilatation ABG Interpretation ABG results: 02/12/25 02/13/25 17:19 08:55 ABG pH 7.25 L ABG pCO2 35 ABG pO2 57 L* ABG HCO3 15 L ABG O2 Saturation 83 L ABG Base Excess -11 L VBG pH 7.40 VBG pCO2 26 L VBG pO2 78 H VBG Base Excess -7 L Assessment & Plan A&P Narrative cavitary pulm process hemoptysis vs hematemesis sputum stain with mostly epi's but cx noted. changed empiric zosyn to po cefuroxime. note the mild chf on echo. will check in tuesday if still here. AFB's are neg x 3, so no overt value to isolation. f/u with others. I can not see him in clinic Time Spent With Patient Time: Total time spent is greater than 50% in coordination of care (as documented) at patient's floor/unit and/or counseling patient:
[2025-02-15] MEDS: amLODIPine BESYLATE 5 MG TABLET 10 MG PO (20:37)
[2025-02-16] VITALS (11 sets, daily range): BP systolic 127–160; BP diastolic 73–91; PULSE 84–91; RESP 13–25; TEMP 36.2–37.8; O2SAT 93–97; BMI 37.7
[2025-02-16] MEDS: ACETAMINOPHEN 325 MG TABLET 650 MG PO ×2 (05:28→23:47)
[2025-02-16 06:12] LABS: Basophils % (Auto) 0 % (0-2.5); Eosinophils # (Auto) 0.5 Thou/mm3 (0.0-0.5); Eosinophils % (Auto) 4 % (0-10); Hematocrit 28.6 % (41.0-53.0); Hemoglobin 10.1 g/dL (13.5-16.0); Immature Granulocytes % (Auto) 1 % (0-0); Immature Granulocytes Auto 0.09 Thou/mm3 (0.00-0.00); Lymphocytes # (Auto) 0.6 Thou/mm3 (1.0-4.8); Lymphocytes % (Auto) 4 % (10-50); Mean Corpuscular HGB Conc 35.3 g/dl (31.0-37.0); Mean Corpuscular Hemoglobin 27.4 pg (25.0-35.0); Mean Corpuscular Volume 78 fL (80-100); Monocytes # (Auto) 1.2 Thou/mm3 (0.0-0.8); Monocytes % (Auto) 9 % (0-12); Neutrophils # (Auto) 10.2 Thou/mm3 (1.8-7.7); Neutrophils % (Auto) 82 % (37-80); Nucleated Red Blood Cell % 0 /100 WBC (0); Platelet Count 193 Thou/mm3 (140-440); RDW Standard Deviation 37.3 fL (35.1-43.9); Red Blood Count 3.69 Miln/mm3 (4.50-5.90); White Blood Count 12.5 Thou/mm3 (3.8-10.6)
[2025-02-16 06:41] LABS: Alanine Aminotransferase 11 U/L (10-49); Albumin, Serum 3.3 gm/dL (3.5-5.0); Albumin/Globulin Ratio 1.1 (1.2-2.2); Alkaline Phosphatase 101 U/L (46-116); Anion Gap 17 (7-16); Aspartate Amino Transferase 10 U/L (0-34); BUN/Creatinine Ratio 6 Ratio (12-20); Bilirubin,Total 0.2 mg/dL (0.3-1.2); Calcium 7.9 mg/dL (8.3-10.6); Calcium (Corrected) 8.5 mg/dL (8.5-10.1); Carbon Dioxide 21.4 mMol/L (20.0-31.0); Chloride 87 mMol/L (98-107); Estimated Creatinine Clearance 5.8 mL/min (>60); Globulin 2.9 gm/dL (2.3-3.5); Glucose 139 mg/dL (74-106); Magnesium 1.8 mg/dL (1.6-2.6); Osmolality,Calculated 291 (275-295); Potassium 3.5 mMol/L (3.4-5.1); Sodium 125 mMol/L (136-145); Total Protein 6.2 gm/dL (5.7-8.2); eGFR 3 See Note
[2025-02-16 06:48] LABS: Blood Urea Nitrogen 119 mg/dL (9-23)
[2025-02-16 08:07] LABS: Creatinine (Component) 21.6 mg/dL (0.6-1.3)
[2025-02-16 08:08] LABS: Phosphorous 9.8 mg/dL (2.4-5.1)
[2025-02-16] MEDS: PANTOPRAZOLE INJ 40 MG VIAL IVP ×2 (09:27→20:55)
[2025-02-16] MEDS: SEVELAMER CARBONATE 800 MG TABLET PO ×3 (09:27→18:24)
[2025-02-16] MEDS: cefuroxime axetiL 250 MG TABLET PO (09:27)
[2025-02-16] MEDS: PREGABALIN 75 MG CAPSULE PO ×2 (09:27→20:55)
[2025-02-16] MEDS: SODIUM BICARBONATE 650 MG TABLET PO ×2 (09:27→20:55)
[2025-02-16] MEDS: Magnesium Sulfate 2 GM Ivpb 2 GM/50 ML BAG IV (09:27)
--- NOTE | 2025-02-16 13:27 | ESPR_ITS ---
Documentation for date of: 02/16/25 Subjective Subjective Interval history: Mr. 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 Acosta and hypertension who presented to [facility] (Former[facility]) with a chief complaint of lower back pain. Nephrology is consulted to arrange PD Exam Vital Signs Temp Pulse Resp BP Pulse Ox O2 Del Method O2 Flow Rate 97.7 F 87 19 160/85 H 97 Nasal Cannula 0.5 02/16/25 11:52 02/16/25 11:52 02/16/25 11:52 02/16/25 11:52 02/16/25 11:52 02/16/25 11:52 02/16/25 11:52 FiO2 85 02/16/25 07:56 Narrative Exam General Appearance: Alert & Oriented X3, well-nourished male who is lying in bed comfortably HEENT: Skull symmetrical and atraumatic. Conjunctivae pin and moist. Pupils equal, round, reactive to light and accommodation (PERRL). External ear without lesion or discharge. Straight, nares patient, mucosa pink, no discharge. No thyroid nodule appreciated. No cervical lymphadenopathy. Cardio: Normal Rate and Rhythm with S1 and S2 heart sounds. No murmurs or extra heart sounds auscultated. No bruits on carotid auscultation. No peripheral edema or cyanosis. Lungs: Symmetric with good expansion. Chest and back non-tender. Breath sounds vesicular without crackles, wheezing or rhonchi Abdomen: mild tender, Non-distended, Normal Reactive Bowel Sounds, negative lara's sign Neuro: Alert, cooperative, oriented to person, place, and time. Speech clear. CN grossly intact. Upper motor strength 5/5 and Lower motor strength 5/5. Sensation intact. Objective Labs 02/16/25 05:39 02/16/25 05:39 Labs: Laboratory Results - last 24 hr 02/16/25 05:39 WBC 12.5 H RBC 3.69 L Hgb 10.1 L Hct 28.6 L MCV 78 L MCH 27.4 MCHC 35.3 RDW Std Deviation 37.3 Plt Count 193 D Neut % (Auto) 82 H Lymph % (Auto) 4 L [place] % (Auto) 9 Eos % (Auto) 4 Baso % (Auto) 0 Neut # (Auto) 10.2 H Lymph # (Auto) 0.6 L [place] # (Auto) 1.2 H Eos # (Auto) 0.5 Baso # (Auto) 0.0 Immature Gran # (Auto) 0.09 H Absolute Nucleated RBC 0.00 Immature Gran % 1 H Nucleated RBC % 0 Sodium 125 L Potassium 3.5 Chloride 87 L Carbon Dioxide 21.4 Anion Gap 17 H BUN 119 H* Creatinine 21.6 H* Estim Creat Clear Calc 5.8 L eGFR 3 L* BUN/Creatinine Ratio 6 L Glucose 139 H Calculated Osmolality 291 Calcium 7.9 L Corrected Calcium 8.5 Phosphorus 9.8 H Magnesium 1.8 Total Bilirubin 0.2 L AST 10 ALT 11 Alkaline Phosphatase 101 Total Protein 6.2 Albumin 3.3 L Globulin 2.9 Albumin/Globulin Ratio 1.1 L ABG Interpretation ABG results: 02/12/25 02/13/25 17:19 08:55 ABG pH 7.25 L ABG pCO2 35 ABG pO2 57 L* ABG HCO3 15 L ABG O2 Saturation 83 L ABG Base Excess -11 L VBG pH 7.40 VBG pCO2 26 L VBG pO2 78 H VBG Base Excess -7 L Assessment & Plan Assessment and plan (1) ESRD (end stage renal disease): Status: Acute Assessment and plan: c/w PD PD fluid is clear no signs of peritonitis discussed with resident (2) Peritoneal dialysis catheter in place: Status: Acute
--- NOTE | 2025-02-16 13:37 | XR_ITS ---
Examination: AP lumbar spine single view TECHNIQUE: AP lumbar spine single view Exam date and time: 11/18/2024 1455 hours INDICATIONS: Lower back pain this week. FINDINGS: Satisfactory alignment lumbar vertebral bodies Intact pedicles. No cortical bone destruction IMPRESSION: Satisfactory alignment lumbar vertebral bodies No fracture or cortical bone destruction
--- NOTE | 2025-02-16 13:43 | XR_ITS ---
Examination: Tibia-Fibula, right , 2 views Technique: Tibia-fibula AP lateral 2 views Date and time of exam: February 16, 2025 1503 hours INDICATIONS: Onset right lower leg tenderness this week FINDINGS: Adequate bone density. No fracture or dislocation. No cortical bone destruction IMPRESSION: No fracture or dislocation. No cortical bone destruction
--- NOTE | 2025-02-16 15:52 | PD.RESPRO ---
Documentation for date of: 02/16/25 Subjective Subjective Interval history: No overnight events. Patient complaining of neuropathy but improved with gabapentin. Patient shared that he had been non compliant with Sevelamer for several days and he was experiencing emetisis and hemopytsis. AFB smear negative, pending cultures. Patient denied dyspnea or any episodes of hempotysis or hematemesis. Improved dysphagia. Patient complaining of lower back pain, negtiave x-ray. Followed up with microbiology as peritoneal not reflecting GPC, stated had not updated lab report yet and pending culture. Please call tomorrow again to ensure labs reflect update. Exam Vital Signs Temp Pulse Resp BP Pulse Ox O2 Del Method O2 Flow Rate 97.7 F 87 19 160/85 H 97 Nasal Cannula 0.5 02/16/25 11:52 02/16/25 11:52 02/16/25 11:52 02/16/25 11:52 02/16/25 11:52 02/16/25 11:52 02/16/25 11:52 FiO2 85 02/16/25 07:56 Narrative Exam General Appearance: Alert & Oriented X3, well-nourished male who is lying in bed comfortably HEENT: Skull symmetrical and atraumatic. Conjunctivae pin and moist. Pupils equal, round, reactive to light and accommodation (PERRL). External ear without lesion or discharge. Straight, nares patient, mucosa pink, no discharge. No thyroid nodule appreciated. No cervical lymphadenopathy. Cardio: Normal Rate and Rhythm with S1 and S2 heart sounds. No murmurs or extra heart sounds auscultated. No bruits on carotid auscultation. No peripheral edema or cyanosis. Lungs: Symmetric with good expansion. Chest and back non-tender. Breath sounds vesicular without crackles, wheezing or rhonchi Abdomen: mild tender, Non-distended, Normal Reactive Bowel Sounds, negative lara's sign Neuro: Alert, cooperative, oriented to person, place, and time. Speech clear. CN grossly intact. Upper motor strength 5/5 and Lower motor strength 5/5. Sensation intact. Objective Labs 02/17/25 06:00 02/17/25 06:00 Labs: Laboratory Results - last 24 hr 02/16/25 05:39 WBC 12.5 H RBC 3.69 L Hgb 10.1 L Hct 28.6 L MCV 78 L MCH 27.4 MCHC 35.3 RDW Std Deviation 37.3 Plt Count 193 D Neut % (Auto) 82 H Lymph % (Auto) 4 L [place] % (Auto) 9 Eos % (Auto) 4 Baso % (Auto) 0 Neut # (Auto) 10.2 H Lymph # (Auto) 0.6 L [place] # (Auto) 1.2 H Eos # (Auto) 0.5 Baso # (Auto) 0.0 Immature Gran # (Auto) 0.09 H Absolute Nucleated RBC 0.00 Immature Gran % 1 H Nucleated RBC % 0 Sodium 125 L Potassium 3.5 Chloride 87 L Carbon Dioxide 21.4 Anion Gap 17 H BUN 119 H* Creatinine 21.6 H* Estim Creat Clear Calc 5.8 L eGFR 3 L* BUN/Creatinine Ratio 6 L Glucose 139 H Calculated Osmolality 291 Calcium 7.9 L Corrected Calcium 8.5 Phosphorus 9.8 H Magnesium 1.8 Total Bilirubin 0.2 L AST 10 ALT 11 Alkaline Phosphatase 101 Total Protein 6.2 Albumin 3.3 L Globulin 2.9 Albumin/Globulin Ratio 1.1 L ABG Interpretation ABG results: 02/12/25 02/13/25 17:19 08:55 ABG pH 7.25 L ABG pCO2 35 ABG pO2 57 L* ABG HCO3 15 L ABG O2 Saturation 83 L ABG Base Excess -11 L VBG pH 7.40 VBG pCO2 26 L VBG pO2 78 H VBG Base Excess -7 L Quality Measures Quality Measures none Assessment & Plan Assessment Current Active Medications: Generic Name Dose Route Start Last Admin Trade Name Freq PRN Reason Stop Dose Admin Acetaminophen 650 mg 02/12/25 15:50 02/16/25 05:28 Acetaminophen 325 Mg Tablet PO 03/14/25 15:49 650 mg Q6H PRN Administration Mild Pain 1-3 or Fever >100.3 Amlodipine Besylate 10 mg 02/14/25 21:00 02/15/25 20:37 Amlodipine Besylate 5 Mg Tablet PO 03/16/25 20:59 10 mg HS BONNIE Administration Cefuroxime Axetil 250 mg 02/16/25 09:00 02/16/25 09:27 Cefuroxime Axetil 250 Mg Tablet PO 02/20/25 12:00 250 mg DAILY BONNIE Administration Guaifenesin/Dextromethorphan 1 each 02/13/25 02:44 Guaifenesin/Dm Tablet PO 03/15/25 02:43 Q8H PRN COUGH Ondansetron HCl 4 mg 02/12/25 15:50 02/15/25 09:01 Ondansetron Inj 2 Mg/Ml Inj 2 Ml IV 03/14/25 15:49 4 mg Q6H PRN Administration NAUSEA OR VOMITING Protocol Pantoprazole Sodium 40 mg 02/12/25 21:15 02/16/25 09:27 Pantoprazole Inj 40 Mg Vial IVP 03/14/25 21:14 40 mg BID BONNIE Administration Pregabalin 75 mg 02/15/25 10:45 02/16/25 09:27 Pregabalin 75 Mg Capsule PO 03/17/25 10:44 75 mg BID BONNIE Administration Sennosides 1 tab 02/12/25 15:50 Senna Tablet PO 03/14/25 15:49 QDAY PRN constipation Protocol Sevelamer Carbonate 800 mg 02/13/25 08:00 02/16/25 14:59 Sevelamer Carbonate 800 Mg Tablet PO 03/15/25 07:59 800 mg TIDWM BONNIE Administration Sodium Bicarbonate 650 mg 02/13/25 21:00 02/16/25 09:27 Sodium Bicarbonate 650 Mg Tablet PO 03/15/25 20:59 650 mg BID BONNIE Administration Plan Patient is a 34-year-old male with a past medical history of hypertension and ESRD on peritoneal dialysis for the past 3 years, patient is unsure of how he developed end-stage kidney disease, secondary glomerulonephritis. #Sepsis secondary to pneumonia, with cavitary lesion, improving #Pneumonia, Proteus Mirabilis #Hemoptysis #Cavitary lesion #Leukocytosis, improving Patient arrived to the emergency room with a chief complaint of hemoptysis and hematemesis with chills and subjective fevers at home with a chest x-ray showing dense consolidation in the mid lung, thus pneumonia can not be ruled out. Meeting sepsis criteria given SOFA of 4 with end organ damage from kidneys'. Cocci negative. Pending AFB cultures for TB. Although less likely, autoimmune process can not be ruled out given patient's young age and history of ESRD with bilateral atrophic kidneys, such as granulomatosis with polyangiitis given lung, kidney, and dysphagia complain. Pending records. Diagnostics: CT chest thick walled cavitary lesion in the right upper lobe contiguous w/ mediastium milder nodular parnchymal disease in right lmiddle lobe CT Abdomen: CT Abdomen/Pelvis noted to have 5 mm thick walled cavitary lesion in the right lung, gastritis pattern, suspected primary hepatocellular disease . Peritoneael dialysis cathete with free fluid in the abdomen and mild ascites Procalcitionin 1.70 02/15/2025: AFB smear negative, pending AFB cultures, and ATF Gold, Zosyn (02/12/2025-02/15/2025) SOFA 4 Plan -Isolation Precautions -Cefuroxime 250 mg PO oral (02/15/2025--) -Protonix 40 mg BID -AFB cultures, QTF Gold -Consult infectious Disease, Dr. Cervantes, appreciate recommendations. #Peritoneal GPC likely contamination Peritoneal fluid showing WBC count of 85, peritoneal polynuclear WBCs 73: Not meeting criteria for peritonitis greater than 250. During morning signout peritoneal culture growing GPC. Given clinical improvement and decreasing leukocytosis, no need for Vancomycin at this moment. Diagnostics: Peritoneal fluid within normal range. WBC 85, Polynucl WBC 73, pending final pertoneal culture showing GPC, holding off vancomycin given down trending WBC Plan -Cefuroxime 250 mg PO oral #Esophageal Stenosis s/p dilation #Dysphagia Patient is complaining of dyspahgia with food, denied pain, denied regurgitation of food. Dysphagia maybe secondary to hematemsis. Mechanical causes versus motility can not be ruled out. CT soft tissue (01/28/2025): Nonspecific carotid triangle lymphadenopathy and Significant left maxillary sinus disease 02/15/2025 patient continues to complain of dysphagia with food, deneid Odynophagia. EGD noted for esophagitis. Please follow outpatient. Plan -regular diet -Consult GI, Dr. Hinton, appreciate recommendations. #Metabolic Acidosis, anion gap, improving #Uremic #Hypocholoremia #Hypocalcemia Patient arrived with metabolic acidosis with bicarb of 14.7, anion gap of 15. Metabolic acidosis likely secondary to uremia given elevated BUN of 154. Less likley secondary to lactic acidosis given Lactic acid of 0.4. No history of diabetes, less likely secondary to DKA, no ketones noted in the urine. Nephrology consulted, patient follows Dr. Acosta. Plan -Sodium Bicarbonate 650 mg PO BID -Treat underlying cause of uremia -Dialysis to correct electrolytes #Isosmotic Hyponatremic, isovolemic , improving Patient presented with hyponatremia of 116, with osmolarity within normal range, and does not appear hypovolemic, thus consider isosmotic hyponatremia secondary to uremia vs worsening ESRD given noncompliance of PD dialysis. Na deficit 1334 plan -Fluid restriction 1000 Liters -Consider salt tablet x1 as decrease in Na -dialysis #ESRD on Peritoneal dialysis #hyperphosphatemia #hx of Glomerulonephritis Patient stated he is compliant with PD dialysis at home every night. Patient denied any discharge form line or infectious process noted coming form line. No animal at home. Plan -PD dialysis -Sevelamer Carbonate TIDWM -Nephrology consult -renally dose medication -avoid nephrotoxins -consult nephrology, Dr. Acosta, appreciate recommendations. #Microcytic Anemia #Acute Blood Loss Anemia noted on labs with hgb of 8.6, hct of 14.7, and MCV of 75, no previous CBC on file. Given recent hemoptysis and hemetemsis, acute blood loss can not be ruled out vs iron deficiency vs chronic disease given 3 year history of ESRD. Plan -continue to monitor hgb and hct -transfuse <7 hgb #Hypertension Holding Amlodipine, given patient will likely develop hypotension during PD dialysis. Plan -Amlodipine 10 mg HS -revevaluate after dialysis #Back Pain #Peripheral Neuropathy Patient complaining of back pain that developed acutely within the last two days. Denied flank pain. No calculi noted on imagining. Denied UTI sympotms. Lower back pain likely secondary to PD dialysis. In addition, uremia and hyperphosphatemia may be contributing to neuropathy. Diagnostics: lumbar x-ray negative. Tibia/Fibula x-ray negative Plan -Tylenol -Pregabalin 75 mg BID -consider uric acid levels, as increased risk w/ kidney disease -Consider Dilaudid 0.5 X 1 #Mild Fluid Subscapular to liver Health Maintenance: Disp: Pt is currently admitted to floors for further management of sepsis in the setting of organ dysfunction, AFB cultures and QFT results. FEN: Regular diet DVT: compression device Code: Full code - The patient's plan was discussed with attending Dr. Brianna Andrews MD PGY1 Attending Provider Attestation/Addendum I, Cathie Reed DO, attest that I was physically present for the rodríguez portions of the service and evaluated the patient with the resident and I reviewed and discussed the case with the resident and agree with the resident's findings and plans of care as documented above Patient seen and evaluated this AM. Patient reports some pain in his b/l wrists and noted a bump over his right mattson which appears to have some mild ecchymosis overlying. XR of RLE shows no acute findings. He also reports some lumbar pain with movement. XR of L-spine also unremarkable. Patient is neurologically intact, no saddle anesthesia, no decreased sensation of b/l LE, no loss of bowel/bladder control. Suspect musculoskeletal pains. Peritoneal fluids are not consistent with peristonitis. Peritoneal dialysate reportedly positive for GPC, suspect contamination. Will f/u final cultures and sensitivities. Continue with abx for pneumonia at this time
--- NOTE | 2025-02-16 17:15 | ESPR_ITS ---
Documentation for date of: 02/16/25 Subjective Subjective Interval history: Decent conversation with the patient Patient is able to swallow much better after endoscopic dilatation The attending RN confirmed that Tolerating diet Exam Vital Signs Temp Pulse Resp BP Pulse Ox O2 Del Method O2 Flow Rate 97.7 F 87 19 160/85 H 97 Nasal Cannula 0.5 02/16/25 11:52 02/16/25 11:52 02/16/25 11:52 02/16/25 11:52 02/16/25 11:52 02/16/25 11:52 02/16/25 11:52 FiO2 85 02/16/25 07:56 Objective Labs 02/16/25 05:39 02/16/25 05:39 Labs: Laboratory Results - last 24 hr 02/16/25 05:39 WBC 12.5 H RBC 3.69 L Hgb 10.1 L Hct 28.6 L MCV 78 L MCH 27.4 MCHC 35.3 RDW Std Deviation 37.3 Plt Count 193 D Neut % (Auto) 82 H Lymph % (Auto) 4 L [place] % (Auto) 9 Eos % (Auto) 4 Baso % (Auto) 0 Neut # (Auto) 10.2 H Lymph # (Auto) 0.6 L [place] # (Auto) 1.2 H Eos # (Auto) 0.5 Baso # (Auto) 0.0 Immature Gran # (Auto) 0.09 H Absolute Nucleated RBC 0.00 Immature Gran % 1 H Nucleated RBC % 0 Sodium 125 L Potassium 3.5 Chloride 87 L Carbon Dioxide 21.4 Anion Gap 17 H BUN 119 H* Creatinine 21.6 H* Estim Creat Clear Calc 5.8 L eGFR 3 L* BUN/Creatinine Ratio 6 L Glucose 139 H Calculated Osmolality 291 Calcium 7.9 L Corrected Calcium 8.5 Phosphorus 9.8 H Magnesium 1.8 Total Bilirubin 0.2 L AST 10 ALT 11 Alkaline Phosphatase 101 Total Protein 6.2 Albumin 3.3 L Globulin 2.9 Albumin/Globulin Ratio 1.1 L Impressions Impression: Dysphagia improved after endoscopic dilatation Proximal esophageal stricture status post guidewire savory endoscopic dilatation [place] 45 and [place] 54 Continue current management ABG Interpretation ABG results: 02/12/25 02/13/25 17:19 08:55 ABG pH 7.25 L ABG pCO2 35 ABG pO2 57 L* ABG HCO3 15 L ABG O2 Saturation 83 L ABG Base Excess -11 L VBG pH 7.40 VBG pCO2 26 L VBG pO2 78 H VBG Base Excess -7 L Assessment & Plan A&P Narrative cavitary pulm process hemoptysis vs hematemesis sputum stain with mostly epi's but cx noted. changed empiric zosyn to po cefuroxime. note the mild chf on echo. will check in tuesday if still here. AFB's are neg x 3, so no overt value to isolation. f/u with others. I can not see him in clinic Time Spent With Patient Time: Total time spent is greater than 50% in coordination of care (as documented) at patient's floor/unit and/or counseling patient:
[2025-02-16] MEDS: amLODIPine BESYLATE 5 MG TABLET 10 MG PO (20:55)
[2025-02-17] VITALS (7 sets, daily range): BP systolic 121–157; BP diastolic 68–90; PULSE 84–93; RESP 11–20; TEMP 36.6–37.1; O2SAT 92–97; BMI 38.5
[2025-02-17] MEDS: ACETAMINOPHEN 325 MG TABLET 650 MG PO (05:49)
[2025-02-17 06:29] LABS: Basophils # (Auto) 0.1 Thou/mm3 (0.0-0.2); Basophils % (Auto) 0 % (0-2.5); Eosinophils # (Auto) 0.5 Thou/mm3 (0.0-0.5); Eosinophils % (Auto) 4 % (0-10); Immature Granulocytes % (Auto) 1 % (0-0); Immature Granulocytes Auto 0.09 Thou/mm3 (0.00-0.00); Lymphocytes # (Auto) 0.6 Thou/mm3 (1.0-4.8); Lymphocytes % (Auto) 5 % (10-50); Mean Corpuscular HGB Conc 35.7 g/dl (31.0-37.0); Mean Corpuscular Hemoglobin 27.9 pg (25.0-35.0); Mean Corpuscular Volume 78 fL (80-100); Monocytes # (Auto) 1.3 Thou/mm3 (0.0-0.8); Monocytes % (Auto) 10 % (0-12); Neutrophils # (Auto) 10.1 Thou/mm3 (1.8-7.7); Neutrophils % (Auto) 80 % (37-80); Nucleated Red Blood Cell % 0 /100 WBC (0); Platelet Count 193 Thou/mm3 (140-440); RDW Standard Deviation 37.5 fL (35.1-43.9); Red Blood Count 3.59 Miln/mm3 (4.50-5.90); White Blood Count 12.7 Thou/mm3 (3.8-10.6)
[2025-02-17 06:57] LABS: Alanine Aminotransferase 10 U/L (10-49); Albumin, Serum 3.3 gm/dL (3.5-5.0); Albumin/Globulin Ratio 1.1 (1.2-2.2); Alkaline Phosphatase 107 U/L (46-116); Anion Gap 16 (7-16); Aspartate Amino Transferase 10 U/L (0-34); BUN/Creatinine Ratio 5 Ratio (12-20); Bilirubin,Total 0.2 mg/dL (0.3-1.2); Calcium (Corrected) 8.6 mg/dL (8.5-10.1); Carbon Dioxide 23.5 mMol/L (20.0-31.0); Chloride 86 mMol/L (98-107); Glucose 101 mg/dL (74-106); Magnesium 2.2 mg/dL (1.6-2.6); Osmolality,Calculated 286 (275-295); Potassium 3.9 mMol/L (3.4-5.1); Sodium 125 mMol/L (136-145); Total Protein 6.3 gm/dL (5.7-8.2); eGFR 3 See Note
[2025-02-17 07:01] LABS: Blood Urea Nitrogen 110 mg/dL (9-23)
[2025-02-17 07:23] LABS: Creatinine (Component) 21.1 mg/dL (0.6-1.3)
[2025-02-17] MEDS: SEVELAMER CARBONATE 800 MG TABLET PO ×2 (08:13→11:26)
[2025-02-17] MEDS: PREGABALIN 75 MG CAPSULE PO (09:33)
[2025-02-17] MEDS: SODIUM BICARBONATE 650 MG TABLET PO (09:33)
[2025-02-17] MEDS: PANTOPRAZOLE INJ 40 MG VIAL IVP (09:33)
[2025-02-17] MEDS: cefuroxime axetiL 250 MG TABLET PO (09:33)
--- NOTE | 2025-02-17 11:17 | PC.SS ---
Update: Plan is to d/c patient home today.
--- NOTE | 2025-02-17 13:54 | ESDS_ITS ---
<Statement entered by Cathie Reed DO - 02/18/25 07:38> I, Cathie Reed DO, attest that I was physically present for the rodríguez portions of the service and evaluated the patient with the resident and I reviewed and discussed the case with the resident and agree with the resident's findings and plans of care as documented above Planned Discharge Date 02/17/25 DS: Providers Provider Date of admission: 02/12/25 15:59 Primary care physician: Semaj Matthews MD Admitting Provider: Baltazar Vazquez MD Attending Provider on Admission: Baltazar Vazquez MD Consults: 02/12/25 15:54 Consult to Nephrology Stat Comment: Consulting Provider: Suki Shah 02/12/25 15:56 Referral Speech Therapy Stat Comment: Instructions: dysphagia 02/12/25 16:27 Consult to Gastroenterology Urgent Comment: Consulting Provider: Dimitrios Hinton 02/12/25 17:07 Consult to Infectious Diseases Urgent Comment: cavitary lesion/TB rule/hemoptysis Consulting Provider: Keyur Cervantes 02/12/25 23:14 Referral Infection Control Routine Comment: Reason for Infection Control Referral: Patient In Isolation Attending Provider on DC: Frank Tsai MD Discharging Provider: Frank Tsai MD DS: Diagnosis Problem List Completed Was Problem List Reviewed/Reconciled?: Yes Hospital Course Hospital Course Hospital course: Patient is a 34-year-old male, past medical history of end-stage renal disease secondary to glomerulonephritis, on peritoneal dialysis, presented to ER with chief complaint of hematemesis and hemoptysis, dysphagia and fever. Also com plaining of shortness of breath. Initial workup showed cavitary lesion 5x 3 cm right upper lobe contiguous with mediastinum, patient was admitted to the medical floor for workup of cavitary pneumonia, labs and AFB smear were ordered for ruling out tuberculosis, coccidiomycosis, Aspergillus. Also found to have multiple electrolyte abnormalities consistent with end-stage renal disease. Peritoneal fluid was sent for analysis to rule out peritonitis, which was negative, but microbiology grew GPC and peritoneal fluid, which was Staphylococcus epidermidis, likely contaminant as patient's pleural fluid analysis was relatively benign with normal WBCs and benign physical exam. Senior Specialist Dr. Salgado followed the patient, agreed with findings. Infectious disease was Dr Cervantes also followed the patient, sputum culture grew Proteus, patient was started on antibiotics per sensitivity. Negative workup for tuberculosis to date, negative AFB smears x 3, pending cultures, negative NAAT, pending Aspergillus antigen. The patient is stable, ambulatory, afebrile and tolerating Per oral medications at the time of discharge. The patient understood and agreed to the treatment plan. Recommend to continue antibiotic cefuroxime for treatment of pneumonia for 3 more days . Please follow-up with your major appliance assembly supervisor Dr. Salgado within 1 week of discharge from the hospital, and continue with peritoneal dialysis daily. Please follow-up with your primary care physician within 5 days of discharge from the hospital, need to followup on labs for Aspergillus , which is a send out. Time Spent with Patient Time attestation: Total time spent providing and/or coordinating discharge services: Time spent: Greater than 30 minutes Exam Vital Signs Temp Pulse Resp BP Pulse Ox O2 Del Method O2 Flow Rate 97.8 F 88 15 126/68 93 L Nasal Cannula 0.5 02/17/25 11:57 02/17/25 11:57 02/17/25 11:57 02/17/25 11:57 02/17/25 11:57 02/17/25 11:57 02/17/25 11:57 FiO2 85 02/17/25 11:57 Narrative Exam General Appearance: Alert & Oriented X3, well-nourished male who is lying in bed comfortably HEENT: Skull symmetrical and atraumatic. Conjunctivae pin and moist. Pupils equal, round, reactive to light and accommodation (PERRL). External ear without lesion or discharge. Straight, nares patient, mucosa pink, no discharge. No thyroid nodule appreciated. No cervical lymphadenopathy. Cardio: Normal Rate and Rhythm with S1 and S2 heart sounds. No murmurs or extra heart sounds auscultated. No bruits on carotid auscultation. No peripheral edema or cyanosis. Lungs: Symmetric with good expansion. Chest and back non-tender. Breath sounds vesicular without crackles, wheezing or rhonchi Abdomen: mild tender, Non-distended, Normal Reactive Bowel Sounds, negative lara's sign Neuro: Alert, cooperative, oriented to person, place, and time. Speech clear. CN grossly intact. Upper motor strength 5/5 and Lower motor strength 5/5. Sensation intact. Discharge Plan Plan Patient Disposition: HOME (Self Care) Patient condition on transfer: Stable Care Plan Goals: Recommend to continue antibiotic cefuroxime for treatment of pneumonia for 3 more days . Please follow-up with your major appliance assembly supervisor Dr. Salgado within 1 week of discharge fro m the hospital, and continue with peritoneal dialysis daily. Please follow-up with your primary care physician within 5 days of discharge from the hospital, need to followup on labs for Aspergillus , which is a send out. Prescriptions/Referrals Prescriptions/Med Rec: New amlodipine 10 mg tablet 10 mg PO HS 14 Days Qty: 14 0RF cefuroxime axetil 250 mg Tablet 250 mg PO DAILY 3 Days Qty: 3 0RF sodium bicarbonate 650 mg Tablet 650 mg PO BID 14 Days Qty: 28 0RF sevelamer carbonate 800 mg Tablet 800 mg PO TIDWM 14 Days Qty: 40 0RF Continued guaifenesin 200 mg/5 mL liquid 200 mg PO Q4H PRN (Reason: cough) Qty: 118 0RF albuterol sulfate 90 mcg/actuation HFA aerosol inhaler 2 puff inhalation Q6H PRN (Reason: shortness of breath or wheezing) Qty: 8.5 0RF losartan 100 mg tablet Patient Comments: TAKE 1/2 (ONE-HALF) TABLET BY MOUTH ONCE DAILY sodium chloride 1,000 mg tablet,soluble Patient Comments: TAKE 1 TABLET BY MOUTH TWICE DAILY calcitriol 0.5 mcg capsule 0.5 mcg PO QDAY Discontinued cefdinir 300 mg capsule 300 mg PO BID Qty: 14 0RF fluconazole [Diflucan] 200 mg tablet 400 mg PO QDAY Qty: 30 1RF Referrals: Semaj Matthews MD [Primary Care Provider] - Patient/Caregiver Discharge Instructions Print Language: Argentine Stand Alone Forms: Cinthia Award Info., Patient Portal Info Letter Discharge Order Discharge Orders: Discharge (Routine); Ordered 02/17/25 Ordered By: Frank Tsai Quality Discharge Quality Measures VTE prophylaxis
--- NOTE | 2025-02-17 14:10 | PC.NURSE ---
Called FLEET SALESPERSON for increased heart rate. Patient heart rate 200s sustained for approximately 2-3 minutes. Patient states that he feels palpitations.
--- NOTE | 2025-02-17 15:12 | PD.IMPROG ---
Documentation for date of: 02/17/25 Subjective Subjective Interval history: 34-year-old male evaluated Much improved dysphagia after endoscopic dilatation Exam Vital Signs Temp Pulse Resp BP Pulse Ox O2 Del Method O2 Flow Rate 97.8 F 88 15 126/68 93 L Nasal Cannula 0.5 02/17/25 11:57 02/17/25 11:57 02/17/25 11:57 02/17/25 11:57 02/17/25 11:57 02/17/25 11:57 02/17/25 11:57 FiO2 85 02/17/25 11:57 Objective Labs 02/17/25 06:00 02/17/25 06:00 Labs: Laboratory Results - last 24 hr 02/17/25 06:00 WBC 12.7 H RBC 3.59 L Hgb 10.0 L Hct 28.0 L MCV 78 L MCH 27.9 MCHC 35.7 RDW Std Deviation 37.5 Plt Count 193 Neut % (Auto) 80 Lymph % (Auto) 5 L [place] % (Auto) 10 Eos % (Auto) 4 Baso % (Auto) 0 Neut # (Auto) 10.1 H Lymph # (Auto) 0.6 L [place] # (Auto) 1.3 H Eos # (Auto) 0.5 Baso # (Auto) 0.1 Immature Gran # (Auto) 0.09 H Absolute Nucleated RBC 0.00 Immature Gran % 1 H Nucleated RBC % 0 Sodium 125 L Potassium 3.9 Chloride 86 L Carbon Dioxide 23.5 Anion Gap 16 BUN 110 H* Creatinine 21.1 H* D Estim Creat Clear Calc 6.0 L eGFR 3 L* BUN/Creatinine Ratio 5 L Glucose 101 Calculated Osmolality 286 Calcium 8.0 L Corrected Calcium 8.6 Phosphorus 10.0 H Magnesium 2.2 Total Bilirubin 0.2 L AST 10 ALT 10 Alkaline Phosphatase 107 Total Protein 6.3 Albumin 3.3 L Globulin 3.0 Albumin/Globulin Ratio 1.1 L Impressions Impression: Proximal esophageal stricture status post guidewire savory dilatation [place] 45 and 54 Improved dysphagia after endoscopic dilatation Continue current management ABG Interpretation ABG results: 02/12/25 02/13/25 17:19 08:55 ABG pH 7.25 L ABG pCO2 35 ABG pO2 57 L* ABG HCO3 15 L ABG O2 Saturation 83 L ABG Base Excess -11 L VBG pH 7.40 VBG pCO2 26 L VBG pO2 78 H VBG Base Excess -7 L Assessment & Plan A&P Narrative cavitary pulm process hemoptysis vs hematemesis sputum stain with mostly epi's but cx noted. changed empiric zosyn to po cefuroxime. note the mild chf on echo. will check in tuesday if still here. AFB's are neg x 3, so no overt value to isolation. f/u with others. I can not see him in clinic Time Spent With Patient Time: Total time spent is greater than 50% in coordination of care (as documented) at patient's floor/unit and/or counseling patient:
--- NOTE | 2025-02-17 15:48 | PC.NURSE ---
patient on room air. Oxygen saturations remain above 95% when ambulating over 200ft.
[2025-02-20 17:52] LABS: Index Value <0.50
[2025-02-21 06:37] LABS: Aspergillus Ag, Ser* NOT DETECTED
[2025-02-25 07:26] LABS: Vitamin D,1,25 (OH)2,Total 10 pg/mL (18-72); Vitamin D2, 1,25 (OH)2 10 pg/mL; Vitamin D3, 1,25 (OH)2 <8 pg/mL
== END 2025-02-17 16:20 | disposition home or self-care (01) | DRG 871 ==
LOC: SERX 15:16 → SERHOLD 16:03 → S2NX 22:00
PROVIDERS: Internal Medicine Infectious Disease; Nurse Practitioner Family; Registered Nurse General Practice; Specialist; Student in an Organized Health Care Education/Training Program; Admitting Provider Student in an Organized Health Care Education/Training Program; Emergency Provider Family Medicine; PCP Family Medicine; Visit Provider Student in an Organized Health Care Education/Training Program
PROC: 0D718ZZ Dilation of Upper Esophagus, Via Natural or Artificial Opening Endoscopic (ICD-10-PCS; CPT 43239; principal; 2025-02-13 19:00)
DX: A41.59 Other Gram-negative sepsis (principal); J18.8 Other pneumonia, unspecified organism; N18.6 End stage renal disease; J18.9 Pneumonia, unspecified organism; K20.91 Esophagitis, unspecified with bleeding; E87.1 Hypo-osmolality and hyponatremia; R04.2 Hemoptysis; D62 Acute posthemorrhagic anemia; I13.2 Hypertensive heart and chronic kidney disease with heart failure and with stage 5 chronic kidney disease, or end stage renal disease; E87.20 Acidosis, unspecified; M31.30 Wegener's granulomatosis without renal involvement; R18.8 Other ascites; E83.51 Hypocalcemia; E83.39 Other disorders of phosphorus metabolism; R13.10 Dysphagia, unspecified; D50.9 Iron deficiency anemia, unspecified; M54.50 Low back pain, unspecified; R74.01 Elevation of levels of liver transaminase levels; E11.22 Type 2 diabetes mellitus with diabetic chronic kidney disease; E11.40 Type 2 diabetes mellitus with diabetic neuropathy, unspecified; I50.9 Heart failure, unspecified; K22.2 Esophageal obstruction; J32.0 Chronic maxillary sinusitis; N05.9 Unspecified nephritic syndrome with unspecified morphologic changes; Z99.2 Dependence on renal dialysis; Z78.9 Other specified health status; Z79.899 Other long term (current) drug therapy; Z87.448 Personal history of other diseases of urinary system; Z91.199 Patient's noncompliance with other medical treatment and regimen due to unspecified reason
CPT/HCPCS: 36415; 36600; 71250; 72020; 73590; 74176; 80053; 80061; 80069; 80074; 80307; 81001; 82042; 82150; 82270; 82436; 82652; 82803; 82945; 83036; 83605; 83615; 83690; 83735; 83880; 83970; 84100; 84133; 84145; 84157; 84295; 84300; 84443; 84478; 85025; 85610; 85730; 86331; 86480; 86635; 86703; 87015; 87040; 87045; 87046; 87077; 87081; 87086; 87116; 87186; 87205; 87206; 87305; 87811; 87899; 89051; 92610; 93005; 96365; 96367; 96375; 99285; A4649; C1769; J0613; J1200; J2250; J2270; J2405; J2470; J2543; J3010; J3475; J7030; A9270